=== PATIENT | male | born 1960 | race Caucasian/White ===

== ENCOUNTER 2018-06-25 06:49 | Inpatient (IN) | payer OTHER ==
[2018-06-25] MEDS ORDERED: CIPROFLOXACIN 400mg IV 400 MG/200 ML BAG IV ONE (07:47)
[2018-06-25] MEDS ORDERED: FAMOTIDINE 20 MG/2 ML VIAL IV ONE (07:47)
[2018-06-25] MEDS ORDERED: MORPHINE 4 MG/ML SYR ONE ×2 (07:47→08:51)
[2018-06-25] MEDS ORDERED: ONDANSETRON 4 MG/2 ML VIAL ONE ×2 (07:47→10:46)
[2018-06-25] MEDS ORDERED: METRONIDAZOLE 500mg IVPB 500 MG/100 ML BAG IV ONE (07:48)
[2018-06-25] MEDS ORDERED: NA CHLORIDE 0.9% 1,000 ML ONE ×2 (07:48→11:58)
[2018-06-25 07:53] LABS: Absolute Lymphocytes (CBC) 0.9 K/uL (0.7-4.9); Absolute Monocytes 2.4 K/uL (0.1-1.3); Absolute Neutrophil 20.4 K/uL (1.8-8.0); Basophils % 0.2 % (0-1.3); Eosinophils % 0.1 % (0-4.4); Hematocrit 46.2 % (39.6-49.0); Lymphocytes % 3.9 % (15.3-44.8); MCH 25.4 pg (27.0-35.0); MCV 80.9 fL (80-100); MPV 8.3 fL (7.6-11.3); Monocytes % 10.1 % (3.3-12.3); RBC Red Blood Cell Count 5.71 M/uL (4.33-5.43)
[2018-06-25 07:55] LABS: Protime INR 1.2
[2018-06-25 08:09] LABS: Albumin 3.3 g/dL (3.4-5.0); Bilirubin Direct 0.2 mg/dL (0-0.2); Bilirubin Total 0.5 mg/dL (0.2-1.0); Potassium 3.6 mmol/L (3.5-5.1); Protein, Total 8.3 g/dL (6.4-8.2)
[2018-06-25 08:12] LABS: Magnesium 1.9 mg/dL (1.8-2.4); NT PRO-BNP 39 pg/mL (<125); Troponin (Emerg Dept Use Only) < 0.02 ng/mL (0.0-0.045)
[2018-06-25 08:25] LABS: Blood Morphology Comment NOT SEEN (NOT SEEN); Platelet Estimate ADEQ
--- NOTE | 2018-06-25 08:30 | EKG ---
Test Date: 2018-06-25 Test Time: 07:39:38 [employer]: JULIO MEASUREMENT RESULTS: Intervals: Rate: 123 MO: 152 QRSD: 86 QT: 336 QTc: 481 [place]: P: 60 MO: 152 QRS: -3 T: 72 INTERPRETIVE STATEMENTS: Sinus tachycardia Otherwise normal ECG Compared to ECG 12/27/2016 05:36:02 Sinus rhythm no longer present Prolonged QT interval no longer present Electronically Signed On 06-25-18 08:30:06 RETORT PRE COOKER by Darek Ornelas
--- NOTE | 2018-06-25 08:48 | RAD REPORT ---
EXAM DESCRIPTION: RAD - Chest Single View - 06/25/2018 7:59 am CLINICAL HISTORY: ABDOMINAL DISTENTION Chest pain. COMPARISON: Chest Single View dated 12/27/2016 FINDINGS: Portable technique limits examination quality. The lungs are emphysematous but grossly clear. The heart is normal in size. No displaced fractures. IMPRESSION: No acute intrathoracic process suspected.
--- NOTE | 2018-06-25 10:16 | EDPHYS ---
Physician Documentation [facility] Name: Danyel Yu Age: 57 yrs Sex: Male : 1960 Arrival Date: 06/25/2018 Time: 06:53 Bed 20 Private MD: ED Physician Yonny Martin HPI: 06/25 07:35 This 57 yrs old Male presents to ER via Ambulatory with complaints of hannah Abdominal Pain, Constipation. 07:35 The patient presents with abdominal pain. Onset: The symptoms/episode began/occurred 14 hannah day(s) ago. The symptoms do not radiate. Associated signs and symptoms: none. Modifying factors: The symptoms are alleviated by nothing, the symptoms are aggravated by movement, pressure. Severity of pain: At its worst the pain was moderate in the emergency department the pain is unchanged. The patient has not experienced similar symptoms in the past. Historical: - Allergies: 07:18 No Known Allergies; sv - Home Meds: 07:18 Ibuprofen Oral [Active]; sv - PMHx: 07:18 Hypertension; sv - PSHx: 07:18 Hernia repair; sv - Immunization history:: Flu vaccine is not up to date. - Social history:: Smoking status: Patient uses tobacco products, smokes .75 packs per day, chewing tobacco, Patient uses alcohol, occasionally. - Ebola Screening: : No symptoms or risks identified at this time. - Family history:: not pertinent. ROS: 07:37 Constitutional: Negative for fever, chills, and weight loss, Eyes: Negative for injury, hannah pain, redness, and discharge, ENT: Negative for injury, pain, and discharge, Neck: Negative for injury, pain, and swelling, Cardiovascular: Negative for chest pain, palpitations, and edema, Respiratory: Negative for shortness of breath, cough, wheezing, and pleuritic chest pain, Back: Negative for injury and pain, : Negative for injury, bleeding, discharge, and swelling, MS/Extremity: Negative for injury and deformity, Skin: Negative for injury, rash, and discoloration, Neuro: Negative for headache, weakness, numbness, tingling, and seizure, Psych: Negative for depression, anxiety, suicide ideation, homicidal ideation, and hallucinations, Allergy/Immunology: Negative for hives, rash, and allergies, Endocrine: Negative for neck swelling, polydipsia, polyuria, polyphagia, and marked weight changes, Hematologic/Lymphatic: Negative for swollen nodes, abnormal bleeding, and unusual bruising. 07:37 Abdomen/GI: Positive for abdominal pain, of the right upper quadrant, left upper quadrant, right lower quadrant and left lower quadrant. Exam: 07:37 Constitutional: This is a well developed, well nourished patient who is awake, alert, hannah and in no acute distress. Head/Face: Normocephalic, atraumatic. Eyes: Pupils equal round and reactive to light, extra-ocular motions intact. Lids and lashes normal. Conjunctiva and sclera are non-icteric and not injected. Cornea within normal limits. Periorbital areas with no swelling, redness, or edema. ENT: Nares patent. No nasal discharge, no septal abnormalities noted. Tympanic membranes are normal and external auditory canals are clear. Oropharynx with no redness, swelling, or masses, exudates, or evidence of obstruction, uvula midline. Mucous membranes moist. Neck: Trachea midline, no thyromegaly or masses palpated, and no cervical lymphadenopathy. Supple, full range of motion without nuchal rigidity, or vertebral point tenderness. No Meningismus. Chest/axilla: Normal chest wall appearance and motion. Nontender with no deformity. No lesions are appreciated. Cardiovascular: Regular rate and rhythm with a normal S1 and S2. No gallops, murmurs, or rubs. Normal PMI, no JVD. No pulse deficits. Respiratory: Lungs have equal breath sounds bilaterally, clear to auscultation and percussion. No rales, rhonchi or wheezes noted. No increased work of breathing, no retractions or nasal flaring. Back: No spinal tenderness. No costovertebral tenderness. Full range of motion. Male : Normal genitalia with no discharge or lesions. Skin: Warm, dry with normal turgor. Normal color with no rashes, no lesions, and no evidence of cellulitis. MS/ Extremity: Pulses equal, no cyanosis. Neurovascular intact. Full, normal range of motion. Neuro: Awake and alert, GCS 15, oriented to person, place, time, and situation. Cranial nerves II-XII grossly intact. Motor strength 5/5 in all extremities. Sensory grossly intact. Cerebellar exam normal. Normal gait. Psych: Awake, alert, with orientation to person, place and time. Behavior, mood, and affect are within normal limits. 07:37 Abdomen/GI: Inspection: abdomen appears normal, Bowel sounds: normal, Palpation: mild abdominal tenderness, moderate abdominal tenderness, Liver: no appreciated palpable abnormalities, Hernia: not appreciated. Vital Signs: 07:18 BP 177 / 100; Pulse 121; Resp 18; Temp 98.5; Weight 108.86 kg; Height 6 ft. 0 in. sv (182.88 cm); Pain 9/10; 07:51 Pulse Ox 86% on R/A; aa5 07:53 Pulse Ox 92% on 2 lpm NC; aa5 08:40 BP 169 / 81; Pulse 112; Resp 22 S; Pulse Ox 95% on 2 lpm NC; Pain 9/10; aa5 09:28 BP 188 / 99; Pulse 115; Resp 24 S; Temp 98.8(O); Pulse Ox 91% on 2 lpm NC; Pain 5/10; aa5 07:18 Body Mass Index 32.55 (108.86 kg, 182.88 cm) sv MDM: 07:12 Patient medically screened. [facility] 07:38 Data reviewed: vital signs, nurses notes, lab test result(s), EKG, radiologic studies, [facility] CT scan, plain films. 06/25 07:21 Order name: Basic Metabolic Panel; Complete Time: 09:03 [facility] 06/25 07:21 Order name: CBC with Diff; Complete Time: 09:03 [facility] 06/25 07:21 Order name: Creatinine for Radiology; Complete Time: 09:03 [facility] 06/25 07:21 Order name: Hepatic Function; Complete Time: 09:03 [facility] 06/25 07:21 Order name: Lipase; Complete Time: 09:03 [facility] 06/25 07:21 Order name: Type And Screen; Complete Time: 09:03 [facility] 06/25 07:35 Order name: Magnesium; Complete Time: 09:03 [facility] 06/25 07:35 Order name: NT PRO-BNP; Complete Time: 09:03 [facility] 06/25 07:35 Order name: PT-INR; Complete Time: 09:03 [facility] 06/25 07:35 Order name: Troponin (emerg Dept Use Only); Complete Time: 09:03 [facility] 06/25 07:35 Order name: XRAY Chest (1 view); Complete Time: 09:03 [facility] 06/25 07:35 Order name: CT Abd/Pelvis - W/Contrast [facility] 06/25 08:00 Order name: Manual Differential; Complete Time: 09:03 [facility] 06/25 07:21 Order name: IV Saline Lock; Complete Time: 07:36 [facility] 06/25 07:21 Order name: Labs collected and sent; Complete Time: 07:36 [facility] 06/25 07:35 Order name: EKG; Complete Time: 07:35 [facility] 06/25 07:35 Order name: Cardiac monitoring; Complete Time: 07:36 [facility] 06/25 07:35 Order name: EKG - Nurse/Tech; Complete Time: 07:53 [facility] 06/25 07:35 Order name: O2 Per Protocol; Complete Time: 07:36 [facility] 06/25 07:35 Order name: O2 Sat Monitoring; Complete Time: 07:36 [facility] 06/25 10:25 Order name: CONS Physician Consult EDSD Administered Medications: 07:45 Drug: NS 0.9% 1000 ml Route: IV; Rate: 1 bolus; Site: right antecubital; aa5 08:52 Follow up: IV Status: Completed infusion aa5 07:45 Drug: Zofran 4 mg Route: IVP; Site: right antecubital; aa5 07:55 Follow up: Response: No adverse reaction aa5 07:45 Drug: Pepcid 20 mg Route: IVP; Site: right antecubital; aa5 07:55 Follow up: Response: No adverse reaction aa5 07:47 Drug: morphine 4 mg Route: IVP; Site: right antecubital; aa5 07:55 Follow up: Response: No adverse reaction aa5 07:50 Drug: Flagyl 500 mg Volume: 100 ml; Route: IVPB; Rate: 200 ml/hr; Infused Over: 30 aa5 mins; Site: right antecubital; 08:00 Follow up: Response: No adverse reaction aa5 08:20 Follow up: IV Status: Completed infusion aa5 08:50 Drug: Cipro 400 mg Volume: 200 ml; Route: IVPB; Infused Over: 60 mins; Site: right aa5 antecubital; 09:00 Follow up: Response: No adverse reaction aa5 10:00 Follow up: Response: No adverse reaction; IV Status: Completed infusion aa5 08:52 Drug: morphine 4 mg Route: IVP; Site: right antecubital; aa5 09:00 Follow up: Response: No adverse reaction aa5 10:38 Drug: ProTONIX 40 mg Route: IVP; Site: right antecubital; aa5 10:43 Follow up: Response: No adverse reaction aa5 10:40 Drug: InvANZ 1 grams Route: IVPB; Infused Over: 30 mins; Site: right antecubital; aa5 10:43 Follow up: IV Status: Infusion continued upon admission aa5 Disposition: 06/25/18 10:15 Hospitalization ordered by Debra Eaton for Inpatient Admission. Preliminary diagnosis are Acute duodenal ulcer with both hemorrhage and perforation, Acute duodenal ulcer with perforation, Elevated white blood cell count, Essential (primary) hypertension. - Bed requested for Intensive Care Unit. - Status is Inpatient Admission. aa5 - Condition is Serious. - Problem is new. - Symptoms have improved. UTI on Admission? No Signatures: Dispatcher [employer] Gregoria Squires RN RN sv Anderson, Corey, MD MD cha Calderon, Audri, RN RN aa5 Corrections: (The following items were deleted from the chart) 10:26 10:15 Hospitalization Ordered by Per Ceballos MD for Inpatient Admission. Preliminary hannah diagnosis is Acute duodenal ulcer with both hemorrhage and perforation; Acute duodenal ulcer with perforation; Elevated white blood cell count; Essential (primary) hypertension. Bed requested for Intensive Care Unit. Status is Inpatient Admission. Condition is Serious. Problem is new. Symptoms have improved. UTI on Admission? No. hannah 10:44 10:26 06/25/2018 10:15 Hospitalization Ordered by Debra Eaton MD for Inpatient aa5 Admission. Preliminary diagnosis is Acute duodenal ulcer with both hemorrhage and perforation; Acute duodenal ulcer with perforation; Elevated white blood cell count; Essential (primary) hypertension. Bed requested for Intensive Care Unit. Status is Inpatient Admission. Condition is Serious. Problem is new. Symptoms have improved. UTI on Admission? No. hannah
--- NOTE | 2018-06-25 10:16 | ER ---
Nurse's Notes [facility] Name: Danyel Yu Age: 57 yrs Sex: Male : 1960 Arrival Date: 06/25/2018 Time: 06:53 Bed 20 Private MD: Diagnosis: Acute duodenal ulcer with both hemorrhage and perforation;Acute duodenal ulcer with perforation;Elevated white blood cell count;Essential (primary) hypertension Presentation: 06/25 06:58 Presenting complaint: Patient states: generalized abd pain started today, black tarry sv stools, and constipation for a few weeks. Denies n/v. Pt reports taking Ibuprofen daily for a LLE wound. Transition of care: patient was not received from another setting of care. Onset of symptoms is unknown. Risk Assessment: Do you want to hurt yourself or someone else? Patient reports no desire to harm self or others. Care prior to arrival: None. 06:58 Method Of Arrival: Ambulatory sv 06:58 Acuity: RIVERA 3 sv 07:25 Initial Sepsis Screen: Does the patient meet any 2 criteria? HR > 90 bpm. Does the aa5 patient have a suspected source of infection? No. Patient's initial sepsis screen is negative. Triage Assessment: 06:58 General: Appears in no apparent distress. uncomfortable, Behavior is calm, cooperative, sv appropriate for age. Pain: Complains of pain in abdomen Pain currently is 9 out of 10 on a pain scale. EENT: No signs and/or symptoms were reported regarding the EENT system. Neuro: Level of Consciousness is awake, alert, obeys commands, Oriented to person, place, time, situation, Moves all extremities. Full function Gait is steady. Respiratory: Respiratory effort is even, unlabored, Respiratory pattern is regular, symmetrical. GI: Reports lower abdominal pain, upper abdominal pain, constipation. Historical: - Allergies: 07:18 No Known Allergies; sv - Home Meds: 07:18 Ibuprofen Oral [Active]; sv - PMHx: 07:18 Hypertension; sv - PSHx: 07:18 Hernia repair; sv - Immunization history:: Flu vaccine is not up to date. - Social history:: Smoking status: Patient uses tobacco products, smokes .75 packs per day, chewing tobacco, Patient uses alcohol, occasionally. - Ebola Screening: : No symptoms or risks identified at this time. - Family history:: not pertinent. Screenin:25 Abuse screen: Denies threats or abuse. Nutritional screening: No deficits noted. aa5 Tuberculosis screening: No symptoms or risk factors identified. Fall Risk None identified. Assessment: 07:22 General: Appears uncomfortable, Behavior is calm, cooperative, Pt states "I have a aa5 wound on my leg that I've been dealing with for a year", pt currently refusing for me to assess the wound, pt states "I need to get the stomach pains taking care of first". . Pain: Complains of pain in right upper quadrant Pain does not radiate. Pain currently is 9 out of 10 on a pain scale. Quality of pain is described as crampy, sharp, Pain began "last night" Is intermittent. Neuro: Level of Consciousness is awake, alert, obeys commands, Oriented to person, place, time, situation. Cardiovascular: Heart tones S1 S2 present Rhythm is regular. Respiratory: Reports chronic cough Airway is patent Respiratory effort is even, unlabored, Respiratory pattern is regular, symmetrical. GI: Abdomen is round Bowel sounds diminished in right upper quadrant, left upper quadrant, right lower quadrant and left lower quadrant Abdomen is tender to palpation in right upper quadrant Reports constipation, Pt reports last normal BM was approximately 2 weeks ago. Pt states "I've been having a lot of BM's but it's foam and dark stuff coming out, it's not black just dark". Patient currently denies nausea, vomiting. : No signs and/or symptoms were reported regarding the genitourinary system. EENT: No signs and/or symptoms were reported regarding the EENT system. Derm: Skin is pink, warm \\T\\ dry. Musculoskeletal: Range of motion: intact in all extremities. 07:51 Reassessment: started drinking contrast;. hj 07:51 Reassessment: Patient is alert, oriented x 3, equal unlabored respirations, skin aa5 warm/dry/pink. Pt sitting up in bed watching TV. Pt's O2 was noted to be 85% RA, O2 administered via NC now and O2 increased to 92%. Pt notified of wait time for lab results, pt drinking CT oral contrast at this time. . 08:50 Reassessment: Patient and/or family updated on plan of care and expected duration. Pain aa5 level reassessed. Patient is alert, oriented x 3, equal unlabored respirations, skin warm/dry/pink. Patient states symptoms have not improved. Dr. Martin notified of pt's pain level. Pain: Pain currently is 9 out of 10 on a pain scale. 09:29 Reassessment: Pt resting in bed with eyes closed. Pt awakens easily to verbal stimuli. aa5 Pt states feeling better, reports pain is currently 5/10 on a pain scale, pt states "it just hurts bad when I cough". Pt A\\T\\O x 4, even unlabored respirations, skin is pink/warm/dry. Pt's family at bedside. Awaiting CT scan . 10:20 Reassessment: Patient is alert, oriented x 3, equal unlabored respirations, skin aa5 warm/dry/pink. Dr. Martin at bedside speaking to patient about need for surgery. . Vital Signs: 07:18 BP 177 / 100; Pulse 121; Resp 18; Temp 98.5; Weight 108.86 kg; Height 6 ft. 0 in. sv (182.88 cm); Pain 9/10; 07:51 Pulse Ox 86% on R/A; aa5 07:53 Pulse Ox 92% on 2 lpm NC; aa5 08:40 BP 169 / 81; Pulse 112; Resp 22 S; Pulse Ox 95% on 2 lpm NC; Pain 9/10; aa5 09:28 BP 188 / 99; Pulse 115; Resp 24 S; Temp 98.8(O); Pulse Ox 91% on 2 lpm NC; Pain 5/10; aa5 07:18 Body Mass Index 32.55 (108.86 kg, 182.88 cm) sv ED Course: 06:53 Patient arrived in ED. es 06:58 Arm band placed on Patient placed in an exam room, on a stretcher. sv 07:00 Courtney Manrique, RN is Primary Nurse. aa5 07:12 Yonny Martin MD is Attending Physician. hannah 07:17 Triage completed. sv 07:39 Initial lab(s) drawn, by me, sent to lab. T\\T\\S collected, blood band applied to patient. mh5 Inserted saline lock: 20 gauge in right antecubital area, using aseptic technique. Blood collected. 07:40 Patient has correct armband on for positive identification. Placed in gown. Bed in low mh5 position. Call light in reach. Side rails up X 1. Warm blanket given. Pillow given. Pulse ox on. NIBP on. 07:57 Notified ED physician of a critical lab result(s). WBC=23.9. iw 07:59 X-ray completed. Portable x-ray completed in exam room. Patient tolerated procedure jb2 well. 08:00 XRAY Chest (1 view) In Process Unspecified. EDMS 10:07 CT Abd/Pelvis - W/Contrast In Process Unspecified. EDMS 10:13 Per Ceballos MD is Hospitalizing Provider. hannah 10:20 No provider procedures requiring assistance completed. aa5 10:20 Patient admitted, IV remains in place. aa5 10:25 Debra Eaton MD is Hospitalizing Provider. hannah Administered Medications: 07:45 Drug: NS 0.9% 1000 ml Route: IV; Rate: 1 bolus; Site: right antecubital; aa5 08:52 Follow up: IV Status: Completed infusion aa5 07:45 Drug: Zofran 4 mg Route: IVP; Site: right antecubital; aa5 07:55 Follow up: Response: No adverse reaction aa5 07:45 Drug: Pepcid 20 mg Route: IVP; Site: right antecubital; aa5 07:55 Follow up: Response: No adverse reaction aa5 07:47 Drug: morphine 4 mg Route: IVP; Site: right antecubital; aa5 07:55 Follow up: Response: No adverse reaction aa5 07:50 Drug: Flagyl 500 mg Volume: 100 ml; Route: IVPB; Rate: 200 ml/hr; Infused Over: 30 aa5 mins; Site: right antecubital; 08:00 Follow up: Response: No adverse reaction aa5 08:20 Follow up: IV Status: Completed infusion aa5 08:50 Drug: Cipro 400 mg Volume: 200 ml; Route: IVPB; Infused Over: 60 mins; Site: right aa5 antecubital; 09:00 Follow up: Response: No adverse reaction aa5 10:00 Follow up: Response: No adverse reaction; IV Status: Completed infusion aa5 08:52 Drug: morphine 4 mg Route: IVP; Site: right antecubital; aa5 09:00 Follow up: Response: No adverse reaction aa5 10:38 Drug: ProTONIX 40 mg Route: IVP; Site: right antecubital; aa5 10:43 Follow up: Response: No adverse reaction aa5 10:40 Drug: InvANZ 1 grams Route: IVPB; Infused Over: 30 mins; Site: right antecubital; aa5 10:43 Follow up: IV Status: Infusion continued upon admission aa5 Outcome: 10:15 Decision to Hospitalize by Provider. [facility] 10:43 Admitted to OR accompanied by nurse, family with patient, via stretcher, with oxygen, aa5 with chart, Other Report given to VIDHI Pineda 10:43 Condition: stable 10:43 Discharge instructions given to patient, significant other, Instructed on the need for admit. 10:44 Patient left the ED. aa5 Signatures: Dispatcher [employer] Gregoria Squires RN RN sv Anderson, Corey, MD MD cha Salyer, Feliberto Lance jb2 Mariella Nicole RN RN iw Courtney Manrique RN RN aa5 Per Burnett RN RN hj Martinez, Maria [facility] Corrections: (The following items were deleted from the chart) 19:47 07:15 Initial Sepsis Screen: Does the patient meet any 2 criteria? HR > 90 bpm. Does aa5 the patient have a suspected source of infection? No. Patient's initial sepsis screen is negative. aa5
--- NOTE | 2018-06-25 10:17 | RAD REPORT ---
EXAM DESCRIPTION: CTAbdomen Pelvis W Contrast - 06/25/2018 10:06 am CLINICAL HISTORY: Abdominal pain. ABD PAIN COMPARISON: No comparisons TECHNIQUE: Biphasic CT imaging of the abdomen and pelvis was performed with 100 ml non-ionic IV cont rast. All CT scans are performed using dose optimization technique as appropriate and may include automated exposure control or mA/KV adjustment according to patient size. FINDINGS: The lung bases are clear. A crescent of high density fluid is seen along the liver edge measuring 2.5 cm likely related to bloo d. Small amount of free air is present within the peritoneal cavity. Oral contrast is seen leaking fr om the proximal duodenum to layer in the right upper quadrant adjacent to the gallbladder fossa. Ther e is irregular soft tissue thickening involving the proximal duodenum with surrounding inflammatory c hanges suspicious for perforated duodenal ulcer. The spleen, pancreas, adrenal glands and kidneys are within normal limits. A benign left renal cyst i s seen. A very large right inguinal hernia is present containing small bowel loops without evidence o f incarceration. The appendix is normal. No evidence of significant lymphadenopathy. No suspicious bony findings. IMPRESSION: Perforated duodenal ulcer is suspected with intraperitoneal contrast, air and blood pres ent. Findings were discussed with ER physician Dr. Martin 10 a.m. 06/25/2018 by telephone.
[2018-06-25] MEDS ORDERED: PANTOPRAZOLE 40 MG INJ ONE (10:38)
[2018-06-25] MEDS ORDERED: GLYCOPYRROLATE 0.2 MG/ML SYR ONE (10:44)
[2018-06-25] MEDS ORDERED: LIDOCAINE 2% MPF 5 ML VIAL ONE (10:44)
[2018-06-25] MEDS ORDERED: MIDAZOLAM HCL 2 MG/2 ML INJ ONE ×2 (10:44→13:33)
[2018-06-25] MEDS ORDERED: PROPOFOL 200 MG/20 ML VIAL IV ONE (10:44)
[2018-06-25] MEDS ORDERED: ERTAPENEM NA 1 GM in NA CHLORIDE 0.9% 100 ML IVPB ONE (10:45)
[2018-06-25] MEDS ORDERED: FENTANYL CITR 250 MCG/5 ML ONE ×2 (10:45→10:47)
[2018-06-25] MEDS ORDERED: ROCURONIUM 50 MG/5 ML VIAL IV ONE ×2 (10:46→12:56)
[2018-06-25] MEDS ORDERED: Ringers Lactate 1,000 ML IV ONE ×2 (11:02→13:17)
[2018-06-25] MEDS ORDERED: SUCCINYLCHOLINE 20 MG/ML (10 ML) IV ONE (11:21)
[2018-06-25] MEDS ORDERED: EPHEDRINE SULF 50 MG/10 ML SYR ONE (11:52)
--- NOTE | 2018-06-25 12:10 | CON ---
Date of Consultation: 06/25/2018 Diagnoses: Pneumoperitoneum, hemoperitoneum, peritonitis, perforated viscus. History Of Present Illness: This is the case of a 57-year-old patient, who comes to us with abdomina l pain that has been like that for about 3 weeks ago, but in the last 24 hours got worse. He decided to show up this morning to the ER. He does not remember eating anything out of the usual. He took ibuprofen for pain since the patient has a chronic left lower extremity open wound and venous stasis disease. He was advised in the past and had [facility], but he has not vasquez d a chance to go there. Apparently, this has been there for a few years. He denies drinking anythin g in the last 2 weeks. He said that he had beer about 2 weeks ago. He smoked just occasionally, not every day. He denies any dysuria, hematuria, hematochezia, or melena. Denies any recent traveling out of the country. Denies any family member sick at home. Review of Systems: Ten points otherwise unremarkable. Medical History: Hypertension. Past Surgical History: Ventral hernia repair in 2005. Medications: Ibuprofen. Social History: He smokes occasionally and drinks alcohol just occasionally. Last beer was 2 weeks ago as per patient. Physical Examination: General: The patient is awake and alert, complaining of abdominal pain. HEENT: Pupils are equal and reactive. Anicteric. Neck: Supple. Chest: Clear. Abdomen: Distended with peritonitis and generalized tenderness. Tympanic. Peritonitis guarding and rebound. Rectal: Deferred. Genitalia: Deferred. Extremities: Good capillary refill. Laboratory Data: Blood work shows a WBC count of 23.9 with hemoglobin of 14.5 and platelets of 310. INR is 1.2 with bicarb 30. Glucose 134. CAT scan of abdomen and pelvis interpreted by Dr. Vik swann also I called him and discussed the case with him. He stated that it is a perforated duodenal ulce r with intraperitoneal contrast, air, and blood. Assessment: This is a 57-year-old patient with perforated viscus, peritonitis, and abdominal pain. The patient displayed the need for emergent laparotomy, possible bowel resection, possible ostomy wit h benefits, alternatives, and risks, which include, but are not limited to infection, bleeding, damag e to adjacent structures as a complication, abscess, NV, and even . He also understands this ma y not relieve any symptoms. He might need more than one surgical intervention. He understands the l robert threatening situation he is on. He was advised to check with his primary doctor about the use of ibuprofen also discuss with the GI doctor, in the future when this emergency is over and if he survi ves this then go talk to the GI doctor for an upper endoscopy and even colonoscopy since he does not remember if he had 1 before or not. We are going to request an ICU bed in this patient for the next few days. He might have some third spacing in that area since it is hard to say when this perforatio n happened. He understands this condition. The OR was emergently called. RONDA Voice ID: [id number] Report ID: [id number]
[2018-06-25] MEDS ORDERED: ONDANSETRON 4 MG/2 ML VIAL IV PRN (12:21)
[2018-06-25] MEDS ORDERED: NA CHLORIDE 0.9% 1,000 ML IV SCH (12:21)
[2018-06-25] MEDS ORDERED: Phenylephrine HCl 10 MG/ML 1 ML VIAL ONE (12:33)
[2018-06-25] MEDS ORDERED: MORPHINE 4 MG/ML SYR IV PRN (14:08)
[2018-06-25] MEDS ORDERED: PROPOFOL 1,000 MG/100 ML VIAL IV PRN (14:17)
[2018-06-25] MEDS ORDERED: NA CHLORIDE 0.9% 250 ML IV PRN (14:17)
[2018-06-25] MEDS ORDERED: HALOPERIDOL LACT 5 MG/ML INJ IV PRN (14:17)
--- NOTE | 2018-06-25 14:20 | P.BOP ---
Preoperative diagnosis: PEritonitis, perforated duodenum, hemoperitoneum, pneumoperitoneum Postoperative diagnosis: same Primary procedure: 1. Emergent exploratory laparotomy Secondary procedure: 2. Closure of duodenal perforation Other procedure(s): 3. Omental patch Test Specialist: Lorraine Farr Estimated blood loss: <100cc Specimen: mass Findings: proximal superior duodenum with peritonitis Anesthesia: General Complications: None Drain(s): JUANI drain (x2) Transferred to: Recovery Room Condition: Serious
[2018-06-25] MEDS: NA CHLORIDE 0.9% 1,000 ML IV SCH ×3 (15:00→23:09)
[2018-06-25] MEDS: PROPOFOL 1,000 MG/100 ML VIAL IV PRN ×2 (15:03→22:57)
[2018-06-25] MEDS: PIPER/TAZO/NS 3.375gm 3.375 GM/100 ML BAG IVPB SCH (15:06)
[2018-06-25] MEDS: OCTREOTIDE 500 MCG in NA CHLORIDE 0.9% 500 ML IV SCH (15:06)
[2018-06-25] MEDS: PANTOPRAZOLE INJ 80 MG in NA CHLORIDE 0.9% 250 ML IV SCH (15:06)
--- NOTE | 2018-06-25 16:59 | RAD REPORT ---
EXAM DESCRIPTION: RAD - Chest Single View - 06/25/2018 4:47 pm CLINICAL HISTORY: confirm: PICC placement, ETT placement, NGT placem COMPARISON: Chest Single View dated 06/25/2018; Chest Single View dated 12/27/2016 FINDINGS: Portable chest was obtained following placement of a left upper extremity PICC line. The c atheter tip projects over the SVC.. Endotracheal tube tip is above the sherrill. NG tube tip is not included on the radiograph.
[2018-06-25 17:20] LABS: Urine Appearance CLEAR; Urine Blood NEGATIVE (NEG); Urine Color ORANGE; Urine Glucose NEGATIVE (NEG); Urine Protein 1+ (NEG); Urine Specific Gravity >=1.030 (1.005-1.030)
[2018-06-25] MEDS ORDERED: IPRATROPIUM BROM 0.5MG/2.5ML NEB PRN (17:49)
[2018-06-25] MEDS ORDERED: ALBUTEROL 2.5 MG/3 ML NEB SOL NEB PRN (17:49)
--- NOTE | 2018-06-25 17:55 | P.HP ---
Certification for Inpatient Patient admitted to: Inpatient With expected LOS: >2 Midnights Patient will require the following post-hospital care: None Practitioner: I am a practitioner with admitting privileges, knowledge of patient current condition, hospital course, and medical plan of care. Services: Services provided to patient in accordance with Admission requirements found in Title 42 Section 412.3 of the Code of Federal Regulations Patient History Date of Service: 06/25/18 Reason for admission: Duodenal Perforation History of Present Illness: This is the case of a 57-year-old patient with PMHS of HTN and COPD, who comes to us with abdominal pain that has been going on for 3 weeks, but in the last 24 hours has gotten progressively worse. Pain was excruciating in nature and Generalized in the abdominal Area. His Pain was worse with Food. He has not had anything to eat or drink today. He has been taking OTC ibuprofen for his chronic left lower extremity open wound and venous stasis disease. He has been taking more recently due to the pain. He denies drinking anything in the last 2 weeks. He said that he had beer about 2 weeks ago. He smoked just occasionally, not every day. He denies any dysuria, hematuria, hematochezia, or melena. Denies any recent traveling out of the country. Denies any family member sick at home. In the ER was found to have Duodenal Perforation and thus was admitted for further care Allergies No Known Allergies Allergy (Verified 12/27/16 07:46) Home Medications: Ibuprofen [Advil] 100 mg PO Q4H 06/25/18 - Past Medical/Surgical History Diabetic: No -: HTN -: COPD -: hernia repair - Social History Smoking Status: Current every day smoker Alcohol use: No CD- Drugs: No Caffeine use: No Place of Residence: Home Review of Systems 10-point ROS is otherwise unremarkable Physical Examination - Vital Signs Temperature: 98.6 F Blood Pressure: 103/73 Pulse: 92 Respirations: 12 Pulse Ox (%): 98 - Physical Exam General: Alert, In no apparent distress, Moderate distress HEENT: Atraumatic, PERRLA, EOMI Neck: Supple, 2+ carotid pulse no bruit, No LAD, Without JVD or thyroid abnormality Respiratory: Clear to auscultation bilaterally, Normal air movement Cardiovascular: Regular rate/rhythm, Normal S1 S2 Gastrointestinal: Normal bowel sounds, Tenderness, Rebound, Guarding Musculoskeletal: No tenderness Integumentary: No rashes Neurological: Normal speech, Normal strength at 5/5 x4 extr, Normal tone Lymphatics: No axilla or inguinal lymphadenopathy - Studies Laboratory Data (last 24 hrs) 06/25/18 07:30: PT 14.2 H, INR 1.20 06/25/18 07:30: Magnesium 1.9 06/25/18 07:30: Creatinine 0.90 06/25/18 07:30: WBC 23.9 H*, Hgb 14.5, Hct 46.2, Plt Count 310 06/25/18 07:30: Sodium 137, Potassium 3.6, BUN 22 H, Creatinine 0.90, Glucose 134 H, Total Bilirubin 0.5, AST 13 L, ALT 20, Alkaline Phosphatase 88, Lipase 58 L Assessment and Plan - Problems (Diagnosis) (1) Acute respiratory failure Current Visit: Yes Status: Acute Plan: Patient intubated for surgery -Remained intubated. -CPAP trial and extubate if tolerating CPAP Qualifiers: Respiratory failure complication: unspecified whether with hypoxia or hypercapnia Qualified Code(s): J96.00 - Acute respiratory failure, unspecified whether with hypoxia or hypercapnia (2) Duodenal ulcer disease Current Visit: Yes Status: Acute Plan: Duodenal Ulcer Perforation with Peritonitis -Patient has been taking Ibuprofen recently at a higher dose. -IV fluids and IV protonix and Octerotide -IV abx for acute perforation -Gen Surgery to take the patient to OR -F.u post surgery -NPO for now (3) Peritonitis Current Visit: Yes Status: Acute Plan: Peritonitis -IV abx for now -See # 1 (4) HTN (hypertension) Current Visit: Yes Status: Chronic Plan: Restart Home medication -NPO for now And thus IV medication PRN Qualifiers: Hypertension type: essential hypertension Qualified Code(s): I10 - Essential (primary) hypertension (5) COPD (chronic obstructive pulmonary disease) Current Visit: Yes Status: Chronic Plan: COPD -Duonebs Qualifiers: COPD type: chronic bronchitis Chronic bronchitis type: simple Qualified Code(s): J41.0 - Simple chronic bronchitis Discharge Plan: Home Plan to discharge in: Greater than 2 days - Advance Directives Does patient have a Living Will: No Does patient have a Durable POA for Healthcare: No - Code Status/Comfort Care Code Status Assessed: Yes Critical Care: Yes
[2018-06-25 18:02] LABS: Urine RBC <5 /HPF (NONE SEEN)
[2018-06-25 18:03] LABS: Urine Bacteria 20-50 /HPF (NONE SEEN); Urine Bilirubin NEGATIVE (NEG); Urine Culture Reflex Order REFLEXED
[2018-06-25 18:04] LABS: Urine Amorphous Sediment 1+ /HPF (NONE SEEN)
[2018-06-25] MEDS ORDERED: FAMOTIDINE 20 MG/2 ML VIAL IV SCH (21:00)
[2018-06-26] MEDS: PANTOPRAZOLE INJ 80 MG in NA CHLORIDE 0.9% 250 ML IV SCH ×2 (00:12→11:09)
[2018-06-26] MEDS: PIPER/TAZO/NS 3.375gm 3.375 GM/100 ML BAG IVPB SCH ×3 (00:15→17:45)
[2018-06-26] MEDS: OCTREOTIDE 500 MCG in NA CHLORIDE 0.9% 500 ML IV SCH ×4 (01:40→11:10)
[2018-06-26] MEDS: PROPOFOL 1,000 MG/100 ML VIAL IV PRN ×4 (02:20→23:37)
[2018-06-26] MEDS: NA CHLORIDE 0.9% 1,000 ML IV SCH ×3 (04:20→17:00)
[2018-06-26 05:08] LABS: Absolute Monocytes 2.3 K/uL (0.1-1.3); Absolute Neutrophil 14.3 K/uL (1.8-8.0); Basophils % 0.2 % (0-1.3); Eosinophils % 0.1 % (0-4.4); Hematocrit 37.4 % (39.6-49.0); Lymphocytes % 5.6 % (15.3-44.8); MCH 25.5 pg (27.0-35.0); MCV 80.4 fL (80-100); MPV 8.6 fL (7.6-11.3); Monocytes % 13.2 % (3.3-12.3); RBC Red Blood Cell Count 4.65 M/uL (4.33-5.43)
[2018-06-26 05:12] LABS: Protime INR 1.53
[2018-06-26 05:22] LABS: Albumin 2.1 g/dL (3.4-5.0); Bilirubin Total 0.5 mg/dL (0.2-1.0); Magnesium 1.8 mg/dL (1.8-2.4); Phosphorus 4.5 mg/dL (2.5-4.9); Potassium 4.4 mmol/L (3.5-5.1); Protein, Total 5.8 g/dL (6.4-8.2)
[2018-06-26 05:35] LABS: Arterial Blood Carboxyhemoglob 2.1 % (0-1.5); Blood Gas Oxyhemoglobin 94.2 % (94-97); Blood O2 Saturation 97.3 % (92-98.5)
--- NOTE | 2018-06-26 06:24 | P.PN ---
Subjective Date of Service: 06/25/18 Patient doing well oral. Resting comfortably. Spoke to nurse & no new issues. No significant drainage from NG tube. Adequate urine output. Hemodynamically stable. Patient comfortable and resting. Continue current vent settings as he is on assist-control at this time. Labs pending for in the morning. Review of Systems is unable to be obtained (Patient is sedated and intubated) Physical Examination - Vital Signs Temperature: 98.6 F Blood Pressure: 102/63 Pulse: 87 Respirations: 12 Pulse Ox (%): 98 - Physical Exam General: Other (Sedated and intubated) Respiratory: Diminished Cardiovascular: Regular rate/rhythm, Normal S1 S2, No murmurs Gastrointestinal: Other (No abnormal findings on visualization) Musculoskeletal: No clubbing, No swelling Neurological: Other (Sedated and did not attempt to examine) - Studies Laboratory Data (last 24 hrs) 06/25/18 07:30: PT 14.2 H, INR 1.20 06/25/18 07:30: Magnesium 1.9 06/25/18 07:30: Creatinine 0.90 06/25/18 07:30: WBC 23.9 H*, Hgb 14.5, Hct 46.2, Plt Count 310 06/25/18 07:30: Sodium 137, Potassium 3.6, BUN 22 H, Creatinine 0.90, Glucose 134 H, Total Bilirubin 0.5, AST 13 L, ALT 20, Alkaline Phosphatase 88, Lipase 58 L Assessment & Plan - Problems (Diagnosis) (1) Acute respiratory failure Current Visit: Yes Status: Acute Qualifiers: Respiratory failure complication: unspecified whether with hypoxia or hypercapnia Qualified Code(s): J96.00 - Acute respiratory failure, unspecified whether with hypoxia or hypercapnia (2) Duodenal ulcer disease Current Visit: Yes Status: Acute (3) Peritonitis Current Visit: Yes Status: Acute (4) COPD (chronic obstructive pulmonary disease) Current Visit: Yes Status: Chronic Qualifiers: COPD type: chronic bronchitis Chronic bronchitis type: simple Qualified Code(s): J41.0 - Simple chronic bronchitis (5) HTN (hypertension) Current Visit: Yes Status: Chronic Qualifiers: Hypertension type: essential hypertension Qualified Code(s): I10 - Essential (primary) hypertension - Plan Plan: 1. Continue with IV hydration and PPI drip 2. Continue with IV antibiotics and Sandostatin drip; 3. Continue with pain control and sedation 4. NPO 5. Continue current vent settings; assist controlled as we allow patient 2 rest. Monitor chest x-ray for infiltrates 6. Serial H&H, and we will monitor LFTs and lipase along with electrolytes. 7. GI and DVT prophylaxis - Advance Directives Does patient have a Living Will: No Does patient have a Durable POA for Healthcare: No Critical Care: Yes Time Spent Managing PTS Care (In Minutes): 30
[2018-06-26] MEDS ORDERED: MAGNESIUM SULFATE 1 gm IVPB 1 GM/100 ML BAG IV ONE (06:40)
[2018-06-26] MEDS: LORazepam 2 MG/ML VIAL IV PRN ×2 (07:21→17:15)
--- NOTE | 2018-06-26 09:05 | RAD REPORT ---
EXAM DESCRIPTION: RAD - Chest Single View - 06/26/2018 6:27 am CLINICAL HISTORY: intubated Chest pain. COMPARISON: Chest Single View dated 06/25/2018; Chest Single View dated 06/25/2018; Chest Single Vie w dated 12/27/2016 FINDINGS: Portable technique limits examination quality. Tip of the ET tube is above the sherrill. Enteric tube descends into the stomach. The lungs are grossly clear. The heart is mildly to moderately enlarged.
--- NOTE | 2018-06-26 09:36 | EKG ---
Test Date: 2018-06-26 Test Time: 08:46:29 Journeyman Plumber: JULIO MEASUREMENT RESULTS: Intervals: Rate: 89 UT: 170 QRSD: 92 QT: 378 QTc: 459 [place]: P: 3 UT: 170 QRS: 27 T: 54 INTERPRETIVE STATEMENTS: Normal sinus rhythm Normal ECG Compared to ECG 06/25/2018 07:39:38 Sinus tachycardia no longer present Electronically Signed On 06-26-18 09:35:13 MANAGER COSMETICS by Juan Luis Levin
[2018-06-26] MEDS: AA 5%/D20W/ELECTROLYTES-TPN 2,000 ML, Lipids 20% 250 ML with MULTIVITAMINS INJ 10 ML IV SCH ×3 (17:14)
--- NOTE | 2018-06-26 17:23 | P.PN ---
Subjective Date of Service: 06/26/18 Chief Complaint: Duodenal Perforation Patient seen and examined at bedside with RN. Chart reviewed. Case discussed with general surgery at this time. Patient continues to be intubated and sedated. No complaints to offer overnight. s/pt perforated duodenal repair. Tolerated the procedure well. Review of Systems 10-point ROS is otherwise unremarkable Physical Examination - Vital Signs Temperature: 98.6 F Blood Pressure: 109/64 Pulse: 89 Respirations: 14 Pulse Ox (%): 98 - Physical Exam General: Other (Intubated and sedated) HEENT: Atraumatic, PERRLA, EOMI Neck: Supple, JVD not distended Respiratory: Normal air movement, Expiratory wheezes, Inspiratory wheezes Cardiovascular: Regular rate/rhythm, Normal S1 S2 Gastrointestinal: Normal bowel sounds, Hypoactive, Other (JUANI drain in place draining serosanguineous fluid), Tenderness Musculoskeletal: No tenderness Integumentary: No rashes Lymphatics: No axilla or inguinal lymphadenopathy - Studies Medications List Reviewed: Yes Assessment And Plan - Current Problems (Diagnosis) (1) Acute respiratory failure Onset Date: 06/26/18 Current Visit: Yes Status: Acute Plan: Patient intubated for surgery -Remained intubated and sedated at this time -given the extent of the duodenal ulcer perforation patient is to remain intubated for next 24-48 hr and will wean as tolerated to CPAP when patient is clinically ready Qualifiers: Respiratory failure complication: unspecified whether with hypoxia or hypercapnia Qualified Code(s): J96.00 - Acute respiratory failure, unspecified whether with hypoxia or hypercapnia (2) Duodenal ulcer disease Onset Date: 06/26/18 Current Visit: Yes Status: Acute Plan: Duodenal Ulcer Perforation with Peritonitis -Patient has been taking Ibuprofen recently at a higher dose. -IV fluids and IV protonix and Octerotide -IV abx for acute perforation -Gen Surgery consulted. Recommendation appreciated -s/p Repair with POD# 1 -NG tube in place and JUANI drain in place (3) Peritonitis Onset Date: 06/26/18 Current Visit: Yes Status: Acute Plan: Peritonitis -IV abx for now -See # 1 (4) HTN (hypertension) Onset Date: 06/26/18 Current Visit: Yes Status: Chronic Plan: Restart Home medication -NPO for now And thus IV medication PRN Qualifiers: Hypertension type: essential hypertension Qualified Code(s): I10 - Essential (primary) hypertension (5) COPD (chronic obstructive pulmonary disease) Onset Date: 06/26/18 Current Visit: Yes Status: Chronic Plan: COPD -Shirley Qualifiers: COPD type: chronic bronchitis Chronic bronchitis type: simple Qualified Code(s): J41.0 - Simple chronic bronchitis - Plan Awaiting clinical improvement at this time. Continue monitor patient closely. Continue to monitor for signs of worsening of peritonitis or complication from the surgery. Doing well overall right now. Intubated and sedated. Discharge Plan: Other Plan to discharge in: Greater than 2 days - Code Status/Comfort Care Code Status Assessed: Yes Critical Care: Yes
--- NOTE | 2018-06-26 17:33 | PN ---
Diagnoses: Peritonitis. Perforated duodenal ulcer status post closure of duodenal ulcer and omental patch. Review of Systems: Unable to obtain. Physical Examination: General: The patient is intubated, sedated. Chest: Bilateral breath sounds. Abdomen: Softly distended. JUANI drain serosanguineous. No gross blood. No gross pus. No gross bile . Bowel sounds are negative. Extremities: Good capillary refill. Laboratory Data: Blood work shows WBC count coming down from 23 to 17 with hemoglobin of 11.8. INR is 1.53. Creatinine is 0.9, glucose 131. Total bilirubin 0.5. Assessment: This is a 57-year-old patient with perforation and severe peritonitis over the abdomen w ith extensive contamination of the abdominal cavity by the GI contents from the perforation. We took him to surgery, did complete a lavage for that area, closed the duodenal ulcer and put a patc h in that area. Put him on PPI and bowel rest. He was combative at the beginning so we prefer to ke ep him for his own safety on the ventilator at least 1 more day that will secure that he does not rem ove that NG tube out and also the JUANI drains out since these are very important for the outcome of his problem. I discussed yesterday after surgery the case with Dr. Juvenal Minaya, 1 of the surgeons in [place], explained to him the situation that we have, if we see that in that area duodenal ulcer reo pens or leak then he stated that he will accept this patient for further intervention. In the meanti me, we are just to keep come him over here only if we see those changes in the future. Family is ful ly aware of that. We going to keep him n.p.o., and we plan to keep it like that for several more day s. For that reason, we put in a PICC line and start with parenteral nutrition. We will continue on the antibiotics. His abdomen is very contaminated. HM/MODL Voice ID: [id number] Report ID: [id number]
[2018-06-26] MEDS: PANTOPRAZOLE IV SCH (21:57)
[2018-06-26] MEDS: NA CHLORIDE 0.9% IV SCH ×2 (21:57→23:36)
[2018-06-26] MEDS: FENTANYL CITR 100 MCG/2 ML IV PRN (22:08)
[2018-06-26] MEDS: OCTREOTIDE IV SCH (23:36)
[2018-06-27] MEDS: PIPER/TAZO/NS 3.375gm 3.375 GM/100 ML BAG IVPB SCH ×3 (01:20→17:12)
[2018-06-27] MEDS: LORazepam 2 MG/ML VIAL IV PRN (01:20)
[2018-06-27] MEDS: NA CHLORIDE 0.9% IV SCH ×5 (02:39→20:35)
[2018-06-27] MEDS: PANTOPRAZOLE IV SCH ×3 (02:39→20:35)
[2018-06-27 05:05] LABS: Absolute Lymphocytes (CBC) 0.9 K/uL (0.7-4.9); Absolute Neutrophil 9.6 K/uL (1.8-8.0); Basophils % 0.8 % (0-1.3); Eosinophils % 0.9 % (0-4.4); Hematocrit 33.8 % (39.6-49.0); Lymphocytes % 7.4 % (15.3-44.8); MCH 25.6 pg (27.0-35.0); MCV 81.5 fL (80-100); MPV 8.4 fL (7.6-11.3); Monocytes % 15.7 % (3.3-12.3); RBC Red Blood Cell Count 4.15 M/uL (4.33-5.43)
[2018-06-27 05:11] LABS: Protime INR 1.21
[2018-06-27] MEDS: PROPOFOL 1,000 MG/100 ML VIAL IV PRN (05:12)
[2018-06-27 05:18] LABS: ALT/SGPT 13 U/L (12-78); AST/SGOT 10 U/L (15-37); Albumin 1.9 g/dL (3.4-5.0); Alkaline Phosphatase 50 U/L (45-117); BUN Blood Urea Nitrogen 19 mg/dL (7-18); Bicarbonate 33 mmol/L (21-32); Bilirubin Total 0.3 mg/dL (0.2-1.0); Glucose Level 160 mg/dL (74-106); Phosphorus 1.9 mg/dL (2.5-4.9); Potassium 3.9 mmol/L (3.5-5.1); Protein, Total 5.6 g/dL (6.4-8.2); Sodium Level 141 mmol/L (136-145)
[2018-06-27 05:43] LABS: Blood Morphology Comment NOT SEEN (NOT SEEN); Platelet Estimate ADEQ
[2018-06-27] MEDS ORDERED: POTASSIUM PHOS IN 0.9 % NACL 15 MMOL/250 ML BAG IV ONE (05:44)
[2018-06-27 05:49] LABS: Arterial Blood Carboxyhemoglob 1.6 % (0-1.5); Blood Gas Oxyhemoglobin 95.6 % (94-97); Blood O2 Saturation 97.8 % (92-98.5)
[2018-06-27] MEDS: OCTREOTIDE IV SCH ×2 (05:58→17:15)
[2018-06-27] MEDS ORDERED: ALBUMIN HUMAN 25% 100 ML IV ONE (07:26)
[2018-06-27] MEDS ORDERED: NOREPINEPHRINE 4 MG in D5W 250 ML IV PRN (07:40)
--- NOTE | 2018-06-27 07:53 | RAD REPORT ---
EXAM DESCRIPTION: Keshia Single View06/27/2018 6:42 am CLINICAL HISTORY: Delete that shortness of breath COMPARISON: June 26 FINDINGS: The lungs appear clear of acute infiltrate. The heart is borderline enlarged. Nasogastric tube is present stomach. Endotracheal tube has its tip 9 centimeters above the sherrill IMPRESSION: An endotracheal tube has its tip 9 centimeters above the sherrill
[2018-06-27] MEDS ORDERED: HALOPERIDOL LACT 5 MG/ML INJ IV PRN (08:20)
--- NOTE | 2018-06-27 08:39 | P.CNS ---
Date of Consult: 06/27/18 Reason for Consult: When manage when Chief Complaint: Duodenal Perforation History of Present Illness: Patient is 57 years of age admitted with a perforated duodenum and peritonitis he was operated upon is currently on a ventilator agitated likely low blood pressure patient does have a history of COPD currently alert responsive agitated wants the endotracheal tube out patient's white count was elevated Allergies No Known Allergies Allergy (Verified 12/27/16 07:46) Home Medications: Ibuprofen [Advil] 100 mg PO Q4H 06/25/18 - Past Medical/Surgical History Diabetic: No -: HTN -: COPD -: hernia repair - Social History Smoking Status: Current every day smoker Alcohol use: No CD- Drugs: No Caffeine use: No Place of Residence: Home Review of Systems is unable to be obtained Physical Examination Temp Pulse Resp BP Pulse Ox 98.8 F 75 12 100/56 L 98 06/27/18 04:00 06/27/18 06:00 06/27/18 06:00 06/27/18 06:00 06/27/18 06:00 General: Alert, Cachectic, Moderate distress Respiratory: Clear to auscultation bilaterally Cardiovascular: No edema, Normal S1 S2 Gastrointestinal: Hypoactive - Problems (1) Respiratory failure Current Visit: Yes Status: Acute Plan: Patient is 57 years of age with a history of COPD admitted with a perforated duodenum that was operated upon as currently stable to be weaned off and extubated history of COPD patient is mildly anemic white count is back down to 12.8 patient is hypercapnic labs reviewed renal function is normal prior some brought Wanna plan to wean off and extubate Qualifiers: Chronicity: acute
[2018-06-27] MEDS: MEDIHONEY 44 ML TOPICAL TUBE TOP SCH (09:53)
[2018-06-27] MEDS: ARFORMOTEROL TARTRATE 15 MCG/2 ML VIAL.NEB NEB SCH ×2 (10:25→19:23)
--- NOTE | 2018-06-27 12:39 | EKG ---
Test Date: 2018-06-27 Test Time: 09:13:20 Weather Clerk: JULIO MEASUREMENT RESULTS: Intervals: Rate: 101 [place]: 162 QRSD: 96 QT: 358 QTc: 464 [place]: P: 73 [place]: 162 QRS: 51 T: 50 INTERPRETIVE STATEMENTS: Sinus tachycardia Otherwise normal ECG Compared to ECG 06/26/2018 08:46:29 Sinus rhythm no longer present Electronically Signed On 06-27-18 12:38:36 TOOLS AND PARTS ATTENDANT by Darek Ornelas
--- NOTE | 2018-06-27 12:44 | P.PN ---
Subjective Date of Service: 06/27/18 Called to see patient because of hypotension. Review chart once again. Patient had hypoalbuminemia. Patient's intake and output was -500 over the last 12 hr. Will replenish fluid and replace albumin transiently. Monitor vitals and may need to start vasopressors temporarily Review of Systems is unable to be obtained (intubated and sedated) Physical Examination - Vital Signs Temperature: 98.8 F Blood Pressure: 70/40 Pulse: 80 Respirations: 19 Pulse Ox (%): 97 - Physical Exam General: Other (intubated and sedated) Respiratory: Clear to auscultation bilaterally, Normal air movement Cardiovascular: Regular rate/rhythm, Normal S1 S2, No murmurs Gastrointestinal: Normal bowel sounds, Soft and benign, Non-distended Musculoskeletal: No clubbing, No swelling - Studies Medications List Reviewed: Yes Assessment & Plan - Problems (Diagnosis) (1) Acute respiratory failure Onset Date: 06/26/18 Current Visit: Yes Status: Acute Qualifiers: Respiratory failure complication: unspecified whether with hypoxia or hypercapnia Qualified Code(s): J96.00 - Acute respiratory failure, unspecified whether with hypoxia or hypercapnia (2) Duodenal ulcer disease Onset Date: 06/26/18 Current Visit: Yes Status: Acute (3) Peritonitis Onset Date: 06/26/18 Current Visit: Yes Status: Acute (4) COPD (chronic obstructive pulmonary disease) Onset Date: 06/26/18 Current Visit: Yes Status: Chronic Qualifiers: COPD type: chronic bronchitis Chronic bronchitis type: simple Qualified Code(s): J41.0 - Simple chronic bronchitis (5) HTN (hypertension) Onset Date: 06/26/18 Current Visit: Yes Status: Chronic Qualifiers: Hypertension type: essential hypertension Qualified Code(s): I10 - Essential (primary) hypertension - Plan Plan: 1. Bolus NS x 1L(I/O's=-500cc) 2. IV 25g albumin x 1 3. Vasopressors if no response 4. NPO 5. Monitor H&H closely as well as renal function 6. Stop propofol 7. Fentanyl for sedation 8. Echocardiogram - Advance Directives Does patient have a Living Will: No Does patient have a Durable POA for Healthcare: No Critical Care: Yes Time Spent Managing PTS Care (In Minutes): 35
[2018-06-27] MEDS: ALBUTEROL 2.5 MG/3 ML NEB SOL NEB SCH ×2 (13:20→19:24)
[2018-06-27] MEDS: IPRATROPIUM BROM 0.5MG/2.5ML NEB SCH ×2 (13:20→19:23)
[2018-06-27] MEDS: FENTANYL CITR 100 MCG/2 ML IV PRN ×3 (13:25→21:06)
--- NOTE | 2018-06-27 14:12 | P.PN ---
Subjective Date of Service: 06/27/18 Chief Complaint: Duodenal Perforation Patient seen and examined at bedside with RN. Chart reviewed. Case discussed with general surgery at this time. Patient continues to be intubated and sedated. s/p perforated duodenal repair. Overnight she became hypotensive postoperatively. Postop day 2 was given 1 L of fluids. Patient responded well to the fluids and blood pressure did come up to 1 times over 58. General surgery was notified. This morning patient continues to be on the lower side of for his blood pressure. Patient was given albumin is low at nighttime. CPAP trial of was done today. Patient however failed the CPAP trial. Review of Systems 10-point ROS is otherwise unremarkable Physical Examination - Vital Signs Temperature: 98.8 F Blood Pressure: 70/40 Pulse: 80 Respirations: 19 Pulse Ox (%): 97 - Physical Exam General: Mild distress, Other (Intubated ) HEENT: Atraumatic, PERRLA, EOMI Neck: Supple, JVD not distended Respiratory: Normal air movement, Expiratory wheezes, Inspiratory wheezes Cardiovascular: Regular rate/rhythm, Normal S1 S2, No rubs Gastrointestinal: Normal bowel sounds, Tenderness Musculoskeletal: No tenderness Integumentary: No rashes Neurological: Normal tone Lymphatics: No axilla or inguinal lymphadenopathy - Studies Medications List Reviewed: Yes Assessment And Plan - Current Problems (Diagnosis) (1) Acute respiratory failure Onset Date: 06/26/18 Current Visit: Yes Status: Acute Plan: Patient intubated for surgery -Remained intubated. Sedation stopping due to hypertension. Held off and fentanyl p.r.n. if placed for pain and agitation. -patient failed CPAP trial today -given the extent of the duodenal ulcer perforation patient is to remain intubated f for now and will re-attempt CPAP trial tomorrow morning for possible extubation Qualifiers: Respiratory failure complication: unspecified whether with hypoxia or hypercapnia Qualified Code(s): J96.00 - Acute respiratory failure, unspecified whether with hypoxia or hypercapnia (2) Duodenal ulcer disease Onset Date: 06/26/18 Current Visit: Yes Status: Acute Plan: Duodenal Ulcer Perforation with Peritonitis and septic shock -Patient has been taking Ibuprofen recently at a higher dose. -IV fluids and IV protonix and Octerotide -IV abx for acute perforation and infection -Gen Surgery consulted. Recommendation appreciated -s/p Repair with POD# 2 -NG tube in place and JUANI drain in place (3) Peritonitis Onset Date: 06/26/18 Current Visit: Yes Status: Acute Plan: Peritonitis with septic shock now -IV pressors along with IV fluids with caution and this time -IV abx for possible infection -blood culture urine culture and chest x-ray pending at this -pulmonology in general surgery consulted on the case appreciate recommendations (4) HTN (hypertension) Onset Date: 06/26/18 Current Visit: Yes Status: Chronic Plan: Restart Home medication -NPO for now And thus IV medication PRN Qualifiers: Hypertension type: essential hypertension Qualified Code(s): I10 - Essential (primary) hypertension (5) COPD (chronic obstructive pulmonary disease) Onset Date: 06/26/18 Current Visit: Yes Status: Chronic Plan: COPD -Duonebs Qualifiers: COPD type: chronic bronchitis Chronic bronchitis type: simple Qualified Code(s): J41.0 - Simple chronic bronchitis - Plan Awaiting clinical improvement at this time. Continue monitor patient closely. Continue to monitor for signs of worsening of peritonitis or complication from the surgery. Now on pressor. Will continue to monitor closely. Caution with volume expanders. Discharge Plan: Home Plan to discharge in: Greater than 2 days - Code Status/Comfort Care Code Status Assessed: Yes Critical Care: Yes
--- NOTE | 2018-06-27 14:37 | PN ---
Date of Progress Note: 06/27/2018 Diagnoses: Peritonitis, a perforated duodenal ulcer, status post patch. Review of Systems: Unable to be obtained. Physical Examination: General: The patient is awake, alert, intubated. Chest: Bilateral breath sounds. Abdomen: Soft, distended. Intact incisions, JUANI drain. He still having serosanguineous fluid coming out both of them. Extremities: Good capillary refill. Laboratory Data: Blood work shows a WBC count of 12.8 coming down from 23.9 and platelets of 193. I NR is 1.21. Bicarb 33, glucose 160. Plan: For today, we gofing to ask the medical doctors to help us with extubation, ambulation. Defin itely no diet. The NG tube with a JUANI drain. We will not see this patient as well. We ge t him PICC line and a TPN doing some compromising repaired. HM/MODL Voice ID: [id number] Report ID: [id number]
[2018-06-27] MEDS: AA 5%/D20W/ELECTROLYTES-TPN 2,000 ML, Lipids 20% 250 ML with MULTIVITAMINS INJ 10 ML IV SCH ×3 (17:15)
[2018-06-27] MEDS: NA CHLORIDE 0.9% 1,000 ML IV SCH ×2 (18:15→21:07)
[2018-06-28] MEDS: PIPER/TAZO/NS 3.375gm 3.375 GM/100 ML BAG IVPB SCH ×3 (00:05→16:54)
[2018-06-28] MEDS: ALBUTEROL 2.5 MG/3 ML NEB SOL NEB SCH ×2 (01:10→07:35)
[2018-06-28] MEDS: IPRATROPIUM BROM 0.5MG/2.5ML NEB SCH ×4 (01:10→19:49)
[2018-06-28] MEDS: NA CHLORIDE 0.9% IV SCH ×6 (02:00→22:09)
[2018-06-28] MEDS: PANTOPRAZOLE IV SCH ×4 (02:00→22:09)
[2018-06-28] MEDS: FENTANYL CITR 100 MCG/2 ML IV PRN ×3 (02:10→18:30)
[2018-06-28] MEDS: OCTREOTIDE IV SCH ×2 (02:20→12:00)
[2018-06-28 05:08] LABS: Arterial Blood Carboxyhemoglob 1.8 % (0-1.5); Blood Gas Oxyhemoglobin 92.7 % (94-97)
[2018-06-28 06:11] LABS: Absolute Lymphocytes (CBC) 0.9 K/uL (0.7-4.9); Absolute Monocytes 1.5 K/uL (0.1-1.3); Absolute Neutrophil 8.9 K/uL (1.8-8.0); Basophils % 0.8 % (0-1.3); Eosinophils % 1.9 % (0-4.4); Hematocrit 35.3 % (39.6-49.0); MCH 25.9 pg (27.0-35.0); MCV 81.3 fL (80-100); MPV 8.4 fL (7.6-11.3); Monocytes % 13.1 % (3.3-12.3); RBC Red Blood Cell Count 4.35 M/uL (4.33-5.43)
[2018-06-28 06:18] LABS: Protime INR 1.12
[2018-06-28 06:38] LABS: ALT/SGPT 14 U/L (12-78); AST/SGOT 12 U/L (15-37); Albumin 2.3 g/dL (3.4-5.0); Alkaline Phosphatase 50 U/L (45-117); BUN Blood Urea Nitrogen 15 mg/dL (7-18); Bicarbonate 31 mmol/L (21-32); Bilirubin Total 0.5 mg/dL (0.2-1.0); Glucose Level 144 mg/dL (74-106); Magnesium 1.9 mg/dL (1.8-2.4); Phosphorus 2.8 mg/dL (2.5-4.9); Potassium 3.8 mmol/L (3.5-5.1); Protein, Total 6.3 g/dL (6.4-8.2); Sodium Level 140 mmol/L (136-145)
[2018-06-28] MEDS: ARFORMOTEROL TARTRATE 15 MCG/2 ML VIAL.NEB NEB SCH ×2 (07:35→19:49)
[2018-06-28] MEDS: MEDIHONEY 44 ML TOPICAL TUBE TOP SCH (09:01)
[2018-06-28] MEDS ORDERED: ALBUTEROL 2.5 MG/3 ML NEB SOL NEB PRN (11:06)
--- NOTE | 2018-06-28 11:07 | P.PN ---
Subjective Date of Service: 06/28/18 Chief Complaint: Respiratory failure Subjective: Improving (Patient is improving tolerated as BT and was extubated today is very alert responsive cooperative this dysphonic after extubation heavy smoker) Review of Systems is unable to be obtained Physical Examination - Vital Signs Temperature: 98.9 F Blood Pressure: 141/75 Pulse: 97 Respirations: 19 Pulse Ox (%): 94 - Physical Exam General: Alert, Cooperative Neck: Supple Respiratory: Clear to auscultation bilaterally - Studies Medications List Reviewed: Yes Assessment & Plan - Problems (Diagnosis) (1) Respiratory failure Current Visit: Yes Status: Acute Plan: Patient admitted with postop respiratory failure he is doing well was extubated this morning presumably has COPD heavy smoker be weaned off Levophed continue with bronchodilator he to be evaluated an outpatient pulmonary function testing Qualifiers: Chronicity: acute
--- NOTE | 2018-06-28 12:03 | RAD REPORT ---
EXAM DESCRIPTION: RAD - Chest Single View - 06/28/2018 6:56 am CLINICAL HISTORY: intubated Chest pain. COMPARISON: Chest Single View dated 06/27/2018; Chest Single View dated 06/26/2018; Chest Single Vie w dated 06/25/2018; Chest Single View dated 06/25/2018 FINDINGS: Portable technique limits examination quality. Tip of the ET tube is above the sherrill. Enteric tube descends into the stomach. The heart is mildly e nlarged in size. Small left pleural effusion likely present.
--- NOTE | 2018-06-28 12:26 | P.PN ---
Subjective Date of Service: 06/28/18 Chief Complaint: Respiratory failure Patient seen and examined at bedside with RN. Chart reviewed. Case discussed with general surgery and pulmonology at this time. Patient is currently extubated doing well overall. No complaints to offer overnight. Did well overall and is currently off of Levophed as well. Review of Systems 10-point ROS is otherwise unremarkable Physical Examination - Vital Signs Temperature: 98.9 F Blood Pressure: 141/75 Pulse: 97 Respirations: 19 Pulse Ox (%): 94 - Physical Exam General: Alert, In no apparent distress, Other (NG tube in place) HEENT: Atraumatic, PERRLA, EOMI Neck: Supple, JVD not distended Respiratory: Normal air movement, Expiratory wheezes, Inspiratory wheezes Cardiovascular: Regular rate/rhythm, Normal S1 S2 Gastrointestinal: Hypoactive, No tenderness Musculoskeletal: No tenderness Integumentary: No rashes Neurological: Normal speech, Normal tone, Normal affect Lymphatics: No axilla or inguinal lymphadenopathy - Studies Medications List Reviewed: Yes Assessment And Plan - Current Problems (Diagnosis) (1) Sepsis Current Visit: Yes Status: Acute Plan: Sepsis most likely secondary to perforated duodenal ulcer versus wound on the left leg -blood culture is pending at this time. Wound culture is positive for Staph aureus and Bactine -currently patient is on IV Zosyn will go ahead and add Levaquin at this time -continue monitor patient closely Qualifiers: Sepsis type: sepsis due to unspecified organism Qualified Code(s): A41.9 - Sepsis, unspecified organism (2) Acute respiratory failure Onset Date: 06/26/18 Current Visit: Yes Status: Resolved Plan: Patient intubated for surgery. Now extubated -doing well overall will continue to monitor closely Qualifiers: Respiratory failure complication: unspecified whether with hypoxia or hypercapnia Qualified Code(s): J96.00 - Acute respiratory failure, unspecified whether with hypoxia or hypercapnia (3) Duodenal ulcer disease Onset Date: 06/26/18 Current Visit: Yes Status: Acute Plan: Duodenal Ulcer Perforation with Peritonitis -s/p Repair with POD# 3 -Patient has been taking Ibuprofen recently at a higher dose. -continue with IV protonix and Octerotide -continue with IV antibiotics as well -Gen Surgery consulted. Recommendation appreciated -NG tube in place and JUANI drain in place -will keep NPO till further recommendations from the surgery (4) Peritonitis Onset Date: 06/26/18 Current Visit: Yes Status: Acute Plan: Peritonitis with perforation -currently off of Levophed. Blood pressure is stable at this time. -on IV Zosyn. Will go ahead and continue that here in the hospital (5) HTN (hypertension) Onset Date: 06/26/18 Current Visit: Yes Status: Chronic Plan: Restart Home medication -NPO for now And thus IV medication PRN Qualifiers: Hypertension type: essential hypertension Qualified Code(s): I10 - Essential (primary) hypertension (6) COPD (chronic obstructive pulmonary disease) Onset Date: 06/26/18 Current Visit: Yes Status: Chronic Plan: COPD -[place] Qualifiers: COPD type: chronic bronchitis Chronic bronchitis type: simple Qualified Code(s): J41.0 - Simple chronic bronchitis - Plan Awaiting clinical improvement at this time. Currently extubated. Doing well overall. Continue antibiotics Zosyn and will add Levaquin at this time for wound coverage. Will follow up with general surgery for further care Discharge Plan: Other Plan to discharge in: 72 Hours - Code Status/Comfort Care Code Status Assessed: Yes Critical Care: Yes
[2018-06-28] MEDS: Levofloxacin500mg IV 500 MG/100 ML BAG IV SCH (14:21)
[2018-06-28] MEDS ORDERED: HYDRALAZINE HCL 20 MG/ML VIAL IV PRN (16:30)
[2018-06-28] MEDS: AA 5%/D20W/ELECTROLYTES-TPN 2,000 ML, Lipids 20% 250 ML with MULTIVITAMINS INJ 10 ML IV SCH ×3 (16:55)
[2018-06-28] MEDS ORDERED: HYDRALAZINE HCL 20 MG/ML VIAL IV ONE (17:44)
[2018-06-28] MEDS ORDERED: NA CHLORIDE 0.9% 500 ML IV ONE (18:57)
[2018-06-28] MEDS: METOPROLOL TARTRATE 5 MG/5 ML INJ IV SCH ×3 (19:00→19:59)
[2018-06-28] MEDS ORDERED: METOPROLOL TARTRATE 5 MG/5 ML INJ IV ONE (19:03)
[2018-06-28] MEDS ORDERED: METOPROLOL TARTRATE 5 MG/5 ML INJ IV PRN (19:38)
[2018-06-29] MEDS: METOPROLOL TARTRATE 5 MG/5 ML INJ IV SCH ×6 (00:11→20:23)
[2018-06-29] MEDS: PIPER/TAZO/NS 3.375gm 3.375 GM/100 ML BAG IVPB SCH ×3 (00:11→17:26)
[2018-06-29] MEDS: IPRATROPIUM BROM 0.5MG/2.5ML NEB SCH ×4 (01:45→19:28)
[2018-06-29] MEDS: NA CHLORIDE 0.9% 1,000 ML IV SCH ×2 (02:10→04:12)
[2018-06-29] MEDS: NA CHLORIDE 0.9% IV SCH (04:00)
[2018-06-29] MEDS: PANTOPRAZOLE IV SCH (04:00)
[2018-06-29] MEDS ORDERED: D50W 25 GM/50 ML SYRINGE IV PRN (05:24)
[2018-06-29] MEDS ORDERED: GLUCAGON 1 MG/VIAL IM PRN (05:24)
[2018-06-29] MEDS ORDERED: DEXTROSE 10%-WATER 500 ML IV PRN (05:24)
[2018-06-29 05:49] LABS: BUN Blood Urea Nitrogen 15 mg/dL (7-18); Bicarbonate 31 mmol/L (21-32); Glucose Level 137 mg/dL (74-106); Phosphorus 2.9 mg/dL (2.5-4.9); Potassium 3.9 mmol/L (3.5-5.1); Sodium Level 140 mmol/L (136-145)
[2018-06-29 05:53] LABS: Prealbumin 8.4 mg/dL (20-40)
[2018-06-29] MEDS: INSULIN -REGULAR HUMAN 50 UNIT/0.5 ML ML SQ SCH ×3 (05:57→18:00)
[2018-06-29] MEDS ORDERED: KCL 20 MEQ/100 mL IVPB 20 MEQ/100 ML BAG IV SCH (06:00)
[2018-06-29] MEDS: ARFORMOTEROL TARTRATE 15 MCG/2 ML VIAL.NEB NEB SCH ×2 (08:06→19:28)
[2018-06-29] MEDS: MEDIHONEY 44 ML TOPICAL TUBE TOP SCH (08:35)
[2018-06-29] MEDS ORDERED: NA CHLORIDE 0.9% IV SCH (09:00)
[2018-06-29] MEDS ORDERED: PANTOPRAZOLE IV SCH (09:00)
--- NOTE | 2018-06-29 09:48 | CON ---
History Of Present Illness: Mr. Yu has been in our hospital for several days. He had a perforat ed duodenal ulcer. He apparently came in on the 25 of June, had surgery, did well for several days, but yesterday went into atrial fib. He was placed in the ICU. He received several doses of IV Lopressor and is in sinus rhythm now. The patient has not had atrial fibrillation or heart disease in the past. He denies a history of diabetes or dyslipidemia. He takes ibuprofen as his only outpat ient medication, which is probably one of the main reasons why he had a duodenal ulcer. He took no p rescription medications. Physical Examination: GENERAL: He is alert, oriented, pleasant, appears to be his stated age of 57. 6 feet tall, 231 poun ds. Obese, alert, oriented. He has an NG tube and appears to be a little bit uncomfortable from nelda t. Not having respiratory distress. Denies pain. LUNGS: Clear. HEART: Regular rate and rhythm. No gallop or murmur. ABDOMEN: Soft. EXTREMITIES: Normal. Assessment And Plan: The patient is still n.p.o. because of his ulcer and perforated abdominal viscu s. So, we will give Lopressor IV. FDC, he should probably be on Lopressor, avoid nonsteroidal anti-inflammatories altogether. We can do an echocardiogram and nuclear stress test at some point. The patient is a cigarette smoker. He has been put through the routine of smoking cessation instruc tion. NATALYA Voice ID: [id number] Report ID: [id number]
--- NOTE | 2018-06-29 10:18 | EKG ---
Test Date: 2018-06-28 Test Time: 18:50:24 Manager Transfusion: RNNT MEASUREMENT RESULTS: Intervals: Rate: 173 TN: QRSD: 92 QT: 358 QTc: 607 [place]: P: TN: QRS: -23 T: 242 INTERPRETIVE STATEMENTS: Atrial fibrillation with rapid ventricular response Inferior infarct, age undetermined ST abnormality, possible lateral subendocardial injury Abnormal ECG Compared to ECG 06/27/2018 09:13:20 ST (T wave) deviation now present Sinus tachycardia no longer present Electronically Signed On 06-29-18 10:17:41 LIGHT BULB REPLACER by Darek Ornelas
[2018-06-29] MEDS: FENTANYL CITR 100 MCG/2 ML IV PRN ×2 (12:19→17:35)
[2018-06-29] MEDS ORDERED: SODIUM CHLORIDE 0.9% 10ML INJ IV PRN (13:07)
[2018-06-29] MEDS: Levofloxacin500mg IV 500 MG/100 ML BAG IV SCH (13:21)
--- NOTE | 2018-06-29 14:32 | P.PN ---
Subjective Date of Service: 06/29/18 Chief Complaint: Respiratory failure Patient seen and examined at bedside with RN. Chart reviewed. Case discussed with general surgery and pulmonology at this time. Patient yesterday had an episode of atrial fibrillation with RVR with heart rate of 1 50-160. Patient was given IV Lopressor x2 and has a rhythm converted back to sinus rhythm. Cardiology was consulted at that time. Patient was placed on scheduled Lopressor q.4 hr. This morning patient has been doing well overall complains of mild pain. Review of Systems 10-point ROS is otherwise unremarkable Physical Examination - Vital Signs Temperature: 98.6 F Blood Pressure: 137/69 Pulse: 85 Respirations: 23 Pulse Ox (%): 96 - Physical Exam General: Alert, In no apparent distress, Other (NG tube in place) HEENT: Atraumatic, PERRLA, EOMI Neck: Supple, JVD not distended Respiratory: Clear to auscultation bilaterally, Normal air movement Cardiovascular: Regular rate/rhythm, Normal S1 S2 Gastrointestinal: Normal bowel sounds, Tenderness Musculoskeletal: No tenderness Integumentary: No rashes Neurological: Normal speech, Normal tone, Normal affect Lymphatics: No axilla or inguinal lymphadenopathy - Studies Medications List Reviewed: Yes Assessment And Plan - Current Problems (Diagnosis) (1) Sepsis Current Visit: Yes Status: Acute Plan: Sepsis most likely secondary to perforated duodenal ulcer versus wound on the left leg -blood culture is pending at this time. Wound culture is positive for Staph aureus and actinobacter -currently patient is on IV Zosyn and Levaquin at this time -continue monitor patient closely Qualifiers: Sepsis type: sepsis due to unspecified organism Qualified Code(s): A41.9 - Sepsis, unspecified organism (2) Acute respiratory failure Onset Date: 06/26/18 Current Visit: Yes Status: Resolved Plan: Patient intubated for surgery. Now extubated -doing well overall will continue to monitor closely Qualifiers: Respiratory failure complication: unspecified whether with hypoxia or hypercapnia Qualified Code(s): J96.00 - Acute respiratory failure, unspecified whether with hypoxia or hypercapnia (3) Duodenal ulcer disease Onset Date: 06/26/18 Current Visit: Yes Status: Acute Plan: Duodenal Ulcer Perforation with Peritonitis 2/2 to Ibuprofen use -s/p Repair with POD# 4 -Gen Surgery consulted. Recommendation appreciated -IV protonix BID now -NG tube in place and JUANI drain in place -will keep NPO till further recommendations from the surgery (4) Peritonitis Onset Date: 06/26/18 Current Visit: Yes Status: Acute Plan: Peritonitis with perforation -currently off of Levophed. Blood pressure is stable at this time. (5) HTN (hypertension) Onset Date: 06/26/18 Current Visit: Yes Status: Chronic Plan: Restart Home medication -NPO for now and thus IV medication PRN Qualifiers: Hypertension type: essential hypertension Qualified Code(s): I10 - Essential (primary) hypertension (6) COPD (chronic obstructive pulmonary disease) Onset Date: 06/26/18 Current Visit: Yes Status: Chronic Plan: COPD -Duonebs Qualifiers: COPD type: chronic bronchitis Chronic bronchitis type: simple Qualified Code(s): J41.0 - Simple chronic bronchitis (7) Afib Current Visit: Yes Status: Acute Plan: Acute atrial fibrillation with RVR -IV Lopressor x2 reverted back to sinus rhythm -cardiology consulted. Appreciated recommendations -will get echocardiogram done at this time -anticoagulation on hold due to risk of GI bleed with recent perforation - Plan Awaiting clinical improvement at this time. Discharge Plan: Home Plan to discharge in: Greater than 2 days - Code Status/Comfort Care Code Status Assessed: Yes Critical Care: Yes
[2018-06-29] MEDS: AA 5%/D20W/ELECTROLYTES-TPN 2,000 ML, Lipids 20% 250 ML with MULTIVITAMINS INJ 10 ML IV SCH ×3 (17:25)
[2018-06-29] MEDS: PANTOPRAZOLE 40 MG INJ IVP SCH (20:23)
[2018-06-30] MEDS: PIPER/TAZO/NS 3.375gm 3.375 GM/100 ML BAG IVPB SCH ×3 (00:23→16:25)
[2018-06-30] MEDS: METOPROLOL TARTRATE 5 MG/5 ML INJ IV SCH ×6 (00:23→20:56)
[2018-06-30] MEDS: IPRATROPIUM BROM 0.5MG/2.5ML NEB SCH ×4 (01:51→19:49)
[2018-06-30] MEDS: INSULIN -REGULAR HUMAN 50 UNIT/0.5 ML ML SQ SCH ×4 (05:19→18:00)
[2018-06-30] MEDS ORDERED: METOPROLOL TARTRATE 5 MG/5 ML INJ IV STA (05:22)
[2018-06-30 06:05] LABS: Absolute Lymphocytes (CBC) 0.9 K/uL (0.7-4.9); Absolute Monocytes 2.2 K/uL (0.1-1.3); Absolute Neutrophil 8.4 K/uL (1.8-8.0); Basophils % 0.6 % (0-1.3); Eosinophils % 3.7 % (0-4.4); Lymphocytes % 7.8 % (15.3-44.8); MCH 25.9 pg (27.0-35.0); MCV 80.8 fL (80-100); MPV 8.5 fL (7.6-11.3); Monocytes % 18.3 % (3.3-12.3); RBC Red Blood Cell Count 4.95 M/uL (4.33-5.43)
[2018-06-30 06:27] LABS: ALT/SGPT 40 U/L (12-78); AST/SGOT 33 U/L (15-37); Albumin 2.2 g/dL (3.4-5.0); Alkaline Phosphatase 66 U/L (45-117); BUN Blood Urea Nitrogen 16 mg/dL (7-18); Bicarbonate 31 mmol/L (21-32); Bilirubin Total 0.6 mg/dL (0.2-1.0); Glucose Level 145 mg/dL (74-106); Phosphorus 3.2 mg/dL (2.5-4.9); Potassium 3.8 mmol/L (3.5-5.1); Protein, Total 6.8 g/dL (6.4-8.2); Sodium Level 140 mmol/L (136-145)
[2018-06-30] MEDS: NA CHLORIDE 0.9% 1,000 ML IV SCH (06:45)
[2018-06-30] MEDS ORDERED: KCL 20 MEQ/100 mL IVPB 20 MEQ/100 ML BAG IV SCH (07:00)
[2018-06-30] MEDS: FENTANYL CITR 100 MCG/2 ML IV PRN (08:04)
[2018-06-30] MEDS: PANTOPRAZOLE 40 MG INJ IVP SCH ×2 (08:05→20:56)
[2018-06-30] MEDS: ARFORMOTEROL TARTRATE 15 MCG/2 ML VIAL.NEB NEB SCH ×2 (08:22→19:49)
--- NOTE | 2018-06-30 10:07 | PN ---
Subjective: Mr. Yu remains in sinus rhythm. We will continue intravenous beta-blu. When he is able to take food, we will stop that and probably give him Toprol-XL 50 mg once a day. At some l ater date he should probably do a stress test. RADHA/HOLLY Voice ID: [id number] Report ID: [id number]
[2018-06-30] MEDS: Levofloxacin500mg IV 500 MG/100 ML BAG IV SCH (12:58)
--- NOTE | 2018-06-30 14:28 | P.PN ---
Subjective Date of Service: 06/30/18 Chief Complaint: Respiratory failure Patient seen and examined at bedside with RN. Chart reviewed. Case discussed with general surgery and pulmonology at this time. Doing well today. No complaints to offer overnight. Will get him out of bed today to this chair. Review of Systems 10-point ROS is otherwise unremarkable Physical Examination - Vital Signs Temperature: 98.1 F Blood Pressure: 115/64 Pulse: 89 Respirations: 20 Pulse Ox (%): 93 - Physical Exam General: Alert, In no apparent distress, Other (NG tube in place) HEENT: Atraumatic, PERRLA, EOMI Neck: Supple, JVD not distended Respiratory: Clear to auscultation bilaterally, Normal air movement Cardiovascular: Regular rate/rhythm, Normal S1 S2 Gastrointestinal: Normal bowel sounds, No tenderness Musculoskeletal: No tenderness Integumentary: No rashes Neurological: Normal speech, Normal tone, Normal affect Lymphatics: No axilla or inguinal lymphadenopathy - Studies Medications List Reviewed: Yes Assessment And Plan - Current Problems (Diagnosis) (1) Sepsis Current Visit: Yes Status: Acute Plan: Sepsis most likely secondary to perforated duodenal ulcer versus wound on the left leg -blood culture is pending at this time. Wound culture is positive for Staph aureus and actinobacter -currently patient is on IV Zosyn and Levaquin at this time -continue monitor patient closely Qualifiers: Sepsis type: sepsis due to unspecified organism Qualified Code(s): A41.9 - Sepsis, unspecified organism (2) Acute respiratory failure Onset Date: 06/26/18 Current Visit: Yes Status: Resolved Plan: Patient intubated for surgery. Now extubated -doing well overall will continue to monitor closely Qualifiers: Respiratory failure complication: unspecified whether with hypoxia or hypercapnia Qualified Code(s): J96.00 - Acute respiratory failure, unspecified whether with hypoxia or hypercapnia (3) Duodenal ulcer disease Onset Date: 06/26/18 Current Visit: Yes Status: Acute Plan: Duodenal Ulcer Perforation with Peritonitis 2/2 to Ibuprofen use -s/p Repair with POD# 4 -Gen Surgery consulted. Recommendation appreciated -IV protonix BID now -NG tube in place and JUANI drain in place -will keep NPO till further recommendations from the surgery (4) Peritonitis Onset Date: 06/26/18 Current Visit: Yes Status: Acute Plan: Peritonitis with perforation -currently off of Levophed. Blood pressure is stable at this time. (5) HTN (hypertension) Onset Date: 06/26/18 Current Visit: Yes Status: Chronic Plan: Restart Home medication -NPO for now and thus IV medication PRN Qualifiers: Hypertension type: essential hypertension Qualified Code(s): I10 - Essential (primary) hypertension (6) COPD (chronic obstructive pulmonary disease) Onset Date: 06/26/18 Current Visit: Yes Status: Chronic Plan: COPD -Duonebs Qualifiers: COPD type: chronic bronchitis Chronic bronchitis type: simple Qualified Code(s): J41.0 - Simple chronic bronchitis (7) Afib Current Visit: Yes Status: Acute Plan: Acute atrial fibrillation with RVR -IV Lopressor x2 reverted back to sinus rhythm -cardiology consulted. Appreciated recommendations -will get echocardiogram done at this time -anticoagulation on hold due to risk of GI bleed with recent perforation - Plan Awaiting clinical improvement at this time.
[2018-06-30] MEDS: MEDIHONEY 44 ML TOPICAL TUBE TOP SCH (16:25)
[2018-06-30] MEDS: AA 5%/D20W/ELECTROLYTES-TPN 2,000 ML, Lipids 20% 250 ML with MULTIVITAMINS INJ 10 ML IV SCH ×3 (17:53)
--- NOTE | 2018-06-30 20:10 | RAD REPORT ---
EXAM DESCRIPTION: RAD - Chest Single View - 06/30/2018 6:40 pm CLINICAL HISTORY: Shortness of breath COMPARISON: June 28 TECHNIQUE: AP portable chest image was obtained 1747 hour . FINDINGS: NG tube is in place extending below the diaphragm, off the field of view. Left upper extre mity PICC line remains in place. Left lung base opacification is present partially obscuring the left hemidiaphragm and left heart bor jazmin. Endotracheal tube has been removed since the prior examination. Heart size is normal. Upper lobe vasculature within normal limits. No pneumothorax identifiable. No measurable right pleural effusion . Small left pleural effusion is probably present. No acute bony abnormality seen. No acute aortic fi ndings suspected. IMPRESSION: Lower left lung field pneumonia suspected. Patient likely has small pleural effusion as well.
--- NOTE | 2018-06-30 21:58 | P.PN ---
Subjective Date of Service: 06/30/18 Chief Complaint: Perforated duodenal ulcer with severe peritonitis Subjective: Improving Review of Systems 10-point ROS is otherwise unremarkable Physical Examination - Vital Signs Temperature: 98.8 F Blood Pressure: 108/62 Pulse: 92 Respirations: 18 Pulse Ox (%): 95 - Physical Exam General: Alert, Cooperative HEENT: PERRLA, EOMI Neck: Supple Respiratory: Clear to auscultation bilaterally Cardiovascular: Regular rate/rhythm Gastrointestinal: Hypoactive, No rebound, Distended (softly) Musculoskeletal: No contractures - Studies Medications List Reviewed: Yes Assessment And Plan - Plan NGT TPN OOB MAy move to floor when ok with medical service Cont NPO seq teds Protonox drip
[2018-07-01] MEDS: METOPROLOL TARTRATE 5 MG/5 ML INJ IV SCH ×7 (00:45→23:59)
[2018-07-01] MEDS: PIPER/TAZO/NS 3.375gm 3.375 GM/100 ML BAG IVPB SCH ×3 (00:45→17:19)
[2018-07-01] MEDS: IPRATROPIUM BROM 0.5MG/2.5ML NEB SCH ×4 (02:25→19:36)
[2018-07-01 05:21] VITALS: BMI 30.4
[2018-07-01 05:48] LABS: Absolute Lymphocytes (CBC) 1.3 K/uL (0.7-4.9); Absolute Monocytes 2.6 K/uL (0.1-1.3); Absolute Neutrophil 8.8 K/uL (1.8-8.0); Eosinophils % 3.1 % (0-4.4); Hematocrit 39.6 % (39.6-49.0); Lymphocytes % 9.6 % (15.3-44.8); MCH 25.7 pg (27.0-35.0); MPV 8.2 fL (7.6-11.3); Monocytes % 19.4 % (3.3-12.3); RBC Red Blood Cell Count 4.89 M/uL (4.33-5.43)
[2018-07-01] MEDS: INSULIN -REGULAR HUMAN 50 UNIT/0.5 ML ML SQ SCH ×4 (06:00→17:53)
[2018-07-01 06:04] LABS: ALT/SGPT 58 U/L (12-78); AST/SGOT 38 U/L (15-37); Albumin 2.1 g/dL (3.4-5.0); Alkaline Phosphatase 70 U/L (45-117); BUN Blood Urea Nitrogen 22 mg/dL (7-18); Bicarbonate 33 mmol/L (21-32); Bilirubin Total 0.5 mg/dL (0.2-1.0); Glucose Level 156 mg/dL (74-106); Potassium 3.9 mmol/L (3.5-5.1); Protein, Total 6.9 g/dL (6.4-8.2); Sodium Level 138 mmol/L (136-145)
[2018-07-01] MEDS ORDERED: KCL 20 MEQ/100 mL IVPB 20 MEQ/100 ML BAG IV SCH (07:00)
[2018-07-01 07:35] LABS: Blood Morphology Comment NOT SEEN (NOT SEEN); Platelet Estimate ADEQ
[2018-07-01] MEDS: PANTOPRAZOLE 40 MG INJ IVP SCH ×2 (08:11→20:00)
[2018-07-01] MEDS: ARFORMOTEROL TARTRATE 15 MCG/2 ML VIAL.NEB NEB SCH ×2 (08:48→19:36)
--- NOTE | 2018-07-01 10:49 | PN ---
Mr. Yu is in sinus rhythm most of the time, but he will have paroxysmal atrial fibrillation that lasts for a few hours, sometimes 2 or 3 times a day. We will increase the dose of his Lopressor. At this point, we still do not want to give an oral med when we can. Recommend we start Betapace 120 m g every 12 hours and stop the IV Lopressor to see if that controls things. We will have an echocardi ogram tomorrow. Overall, he is recovering at about the expected rate from somebody with a perforated duodenal ulcer. RADHA/HOLLY Voice ID: [id number] Report ID: [id number]
[2018-07-01] MEDS: Levofloxacin500mg IV 500 MG/100 ML BAG IV SCH (12:01)
--- NOTE | 2018-07-01 12:36 | P.PN ---
Subjective Date of Service: 07/01/18 Chief Complaint: Perforated duodenal ulcer with severe peritonitis Patient seen and examined at bedside with RN. Chart reviewed. Case discussed with general surgery and pulmonology at this time. Overnight had SOB and had workup done consistent with PNA on the LLL. Working with PT today. Doing much better. Review of Systems 10-point ROS is otherwise unremarkable Physical Examination - Vital Signs Temperature: 98 F Blood Pressure: 119/63 Pulse: 100 Respirations: 27 Pulse Ox (%): 95 - Physical Exam General: Alert, In no apparent distress HEENT: Atraumatic, PERRLA, EOMI Neck: Supple, JVD not distended Respiratory: Clear to auscultation bilaterally, Normal air movement Cardiovascular: Regular rate/rhythm, Normal S1 S2 Gastrointestinal: Normal bowel sounds, No tenderness Musculoskeletal: No tenderness Integumentary: No rashes Neurological: Normal speech, Normal tone, Normal affect Lymphatics: No axilla or inguinal lymphadenopathy - Studies Medications List Reviewed: Yes Assessment And Plan - Current Problems (Diagnosis) (1) Sepsis Current Visit: Yes Status: Acute Plan: Sepsis most likely secondary to perforated duodenal ulcer versus wound on the left leg vs PNA LLL -blood culture is pending at this time. Wound culture is positive for Staph aureus and actinobacter -Francis with LLL PNA. Sputum Culture pending -currently patient is on IV Zosyn and Levaquin at this time -continue monitor patient closely Qualifiers: Sepsis type: sepsis due to unspecified organism Qualified Code(s): A41.9 - Sepsis, unspecified organism (2) Acute respiratory failure Onset Date: 06/26/18 Current Visit: Yes Status: Resolved Plan: Patient intubated for surgery. Now extubated. Doing well now -Cxray with Possible LLL PNA -On Levaquin and zosyn. Qualifiers: Respiratory failure complication: unspecified whether with hypoxia or hypercapnia Qualified Code(s): J96.00 - Acute respiratory failure, unspecified whether with hypoxia or hypercapnia (3) Duodenal ulcer disease Onset Date: 06/26/18 Current Visit: Yes Status: Acute Plan: Duodenal Ulcer Perforation with Peritonitis 2/2 to Ibuprofen use -s/p Repair with POD# 5 -Gen Surgery consulted. Recommendation appreciated -IV protonix BID now -NG tube in place and JUANI drain in place -will keep NPO till further recommendations from the surgery (4) Peritonitis Onset Date: 06/26/18 Current Visit: Yes Status: Acute Plan: Peritonitis with perforation -currently off of Levophed. Blood pressure is stable at this time. (5) PNA (pneumonia) Current Visit: Yes Status: Acute Plan: LLL PNA on Xray -Elevated WBC and procal pending -On IV levaquin and zosyn for now -Will continue. IS at bedside. Qualifiers: Pneumonia type: due to unspecified organism Laterality: left Lung location: lower lobe of lung Qualified Code(s): J18.1 - Lobar pneumonia, unspecified organism (6) HTN (hypertension) Onset Date: 06/26/18 Current Visit: Yes Status: Chronic Plan: Restart Home medication -NPO for now and thus IV medication PRN Qualifiers: Hypertension type: essential hypertension Qualified Code(s): I10 - Essential (primary) hypertension (7) COPD (chronic obstructive pulmonary disease) Onset Date: 06/26/18 Current Visit: Yes Status: Chronic Plan: COPD -Duonebs and Oxygen for now -Pulmonology consulted. Qualifiers: COPD type: chronic bronchitis Chronic bronchitis type: simple Qualified Code(s): J41.0 - Simple chronic bronchitis (8) Afib Current Visit: Yes Status: Acute Plan: Acute atrial fibrillation with RVR -IV Lopressor x2 reverted back to sinus rhythm -cardiology consulted. Appreciated recommendations -ECHO pending -On Lopressor 7.5mg q4h IV -anticoagulation on hold due to risk of GI bleed with recent perforation - Plan Awaiting clinical improvement at this time.
[2018-07-01] MEDS: MEDIHONEY 44 ML TOPICAL TUBE TOP SCH (13:58)
[2018-07-01] MEDS: AA 5%/D20W/ELECTROLYTES-TPN 2,000 ML, Lipids 20% 250 ML with MULTIVITAMINS INJ 10 ML IV SCH ×3 (17:18)
[2018-07-01] MEDS: FENTANYL CITR 100 MCG/2 ML IV PRN (17:24)
[2018-07-01] MEDS: NA CHLORIDE 0.9% 1,000 ML IV SCH (17:24)
[2018-07-02] MEDS: PIPER/TAZO/NS 3.375gm 3.375 GM/100 ML BAG IVPB SCH ×3 (01:23→18:07)
[2018-07-02] MEDS: IPRATROPIUM BROM 0.5MG/2.5ML NEB SCH ×4 (01:50→20:34)
[2018-07-02] MEDS: METOPROLOL TARTRATE 5 MG/5 ML INJ IV SCH ×5 (03:05→18:38)
[2018-07-02 05:10] LABS: Absolute Lymphocytes (CBC) 1.3 K/uL (0.7-4.9); Absolute Monocytes 2.8 K/uL (0.1-1.3); Basophils % 0.8 % (0-1.3); Eosinophils % 2.7 % (0-4.4); Hematocrit 39.3 % (39.6-49.0); Lymphocytes % 7.9 % (15.3-44.8); MCH 25.5 pg (27.0-35.0); MCV 81.4 fL (80-100); MPV 8.4 fL (7.6-11.3); RBC Red Blood Cell Count 4.83 M/uL (4.33-5.43)
[2018-07-02 05:11] LABS: Monocytes % 16.9 % (3.3-12.3)
[2018-07-02 05:31] LABS: ALT/SGPT 70 U/L (12-78); AST/SGOT 41 U/L (15-37); Albumin 2.1 g/dL (3.4-5.0); Alkaline Phosphatase 81 U/L (45-117); BUN Blood Urea Nitrogen 29 mg/dL (7-18); Bicarbonate 31 mmol/L (21-32); Bilirubin Total 0.5 mg/dL (0.2-1.0); Glucose Level 159 mg/dL (74-106); Potassium 3.9 mmol/L (3.5-5.1); Protein, Total 6.8 g/dL (6.4-8.2); Sodium Level 139 mmol/L (136-145)
[2018-07-02] MEDS: INSULIN -REGULAR HUMAN 50 UNIT/0.5 ML ML SQ SCH ×4 (05:58→18:00)
[2018-07-02] MEDS ORDERED: KCL 20 MEQ/100 mL IVPB 20 MEQ/100 ML BAG IV SCH (06:00)
[2018-07-02] MEDS: ARFORMOTEROL TARTRATE 15 MCG/2 ML VIAL.NEB NEB SCH ×2 (07:37→20:33)
[2018-07-02] MEDS: PANTOPRAZOLE 40 MG INJ IVP SCH ×2 (09:56→20:20)
[2018-07-02] MEDS: Levofloxacin500mg IV 500 MG/100 ML BAG IV SCH (13:09)
[2018-07-02] MEDS: NA CHLORIDE 0.9% 1,000 ML IV SCH (15:55)
[2018-07-02] MEDS: MEDIHONEY 44 ML TOPICAL TUBE TOP SCH (16:15)
--- NOTE | 2018-07-02 17:02 | PN ---
Mr. Yu is maintaining sinus rhythm on intravenous metoprolol injections every 4 hours. That seem ed to be controlling his atrial fibrillation fairly well. He is able to take p.o. We will switch hi m to Betapace 80 b.i.d. RADHA/HOLLY Voice ID: [id number] Report ID: [id number]
[2018-07-02] MEDS: AA 5%/D20W/ELECTROLYTES-TPN 2,000 ML, Lipids 20% 250 ML with MULTIVITAMINS INJ 10 ML IV SCH ×3 (18:10)
--- NOTE | 2018-07-02 18:11 | P.PN ---
Subjective Date of Service: 07/02/18 Primary Care Provider: Dr. Cox Chief Complaint: Perforated duodenal ulcer with severe peritonitis Subjective: Improving Physical Examination - Vital Signs Temperature: 99.9 F Blood Pressure: 127/76 Pulse: 98 Respirations: 22 Pulse Ox (%): 93 - Physical Exam General: Alert, In no apparent distress, Oriented x3, Cooperative HEENT: Atraumatic Neck: Supple Respiratory: Clear to auscultation bilaterally, Normal air movement Cardiovascular: Normal pulses, Regular rate/rhythm Gastrointestinal: Hypoactive, Non-distended, No tenderness, No masses, No rebound, No guarding Musculoskeletal: No erythema, No tenderness, No warmth Integumentary: No tenderness/swelling, No erythema, No warmth, No cyanosis Neurological: Normal speech, Normal strength at 5/5 x4 extr, Normal tone, Normal affect - Studies Medications List Reviewed: Yes Assessment & Plan Discharge Plan: Detention Plan to discharge in: Greater than 2 days Physician Review Additional Text: Impression: Sepsis secondary to perforated duodenal ulcer with peritonitis status duodenal closure with omental patch, postop day 6 Acute respiratory failure with likely underlying COPD, improving, complicated with left lower lobe pneumonia Duodenal ulcer disease status post perforation with peritonitis secondary to NSAID use status post repair Hypertension Atrial fibrillation with RVR Malnutrition now on TPN Chronic left lower extremity wound, wound culture positive for Staph aureus and Acinetobacter Plan: Sepsis secondary to perforated duodenal ulcer with peritonitis status duodenal closure with omental patch, postop day 6: Spoke with surgery. Patient will have upper GI series tomorrow to monitor stability of omental patch. If abnormal patient will likely require transfer to higher level of care center for possible surgery. Surgery has spoken to specialist up in [place]. If stable will continue with current TPN and plan for possible skilled placement or long-term acute care facility placement. Will continue monitor closely. Acute respiratory failure with likely underlying COPD, improving, complicated with left lower lobe pneumonia: Continue with IV antibiotic therapy. Patient currently on Levaquin and Zosyn. Patient now on currently stable. Continue to wean off oxygen. Continue COPD medication. Duodenal ulcer disease status post perforation with peritonitis secondary to NSAID use status post repair: Continue as above. Will monitor closely. Hypertension: Continue with medication. Will monitor closely. Atrial fibrillation with RVR: Patient currently stable on metoprolol. Once the patient is able to take oral intake then will transition to Betapace. Patient not on chronic anti coagulation therapy due to history of duodenal ulcer perforation Malnutrition now on TPN: Will continue with TPN. Dietary to monitor and adjust appropriately. Chronic left lower extremity wound, wound culture positive for Staph aureus and Acinetobacter: Continue current wound care. Patient on IV antibiotic therapy. [facility] Time Spent Managing Pts Care (In Minutes): 55
[2018-07-03] MEDS: METOPROLOL TARTRATE 5 MG/5 ML INJ IV SCH ×6 (00:04→18:24)
[2018-07-03] MEDS: PIPER/TAZO/NS 3.375gm 3.375 GM/100 ML BAG IVPB SCH ×3 (00:07→16:26)
[2018-07-03] MEDS: NA CHLORIDE 0.9% 1,000 ML IV SCH (01:26)
[2018-07-03] MEDS: IPRATROPIUM BROM 0.5MG/2.5ML NEB SCH ×4 (02:55→20:00)
[2018-07-03 05:27] LABS: Absolute Lymphocytes (CBC) 1.3 K/uL (0.7-4.9); Absolute Monocytes 2.4 K/uL (0.1-1.3); Basophils % 0.7 % (0-1.3); Eosinophils % 3.4 % (0-4.4); Hematocrit 40.4 % (39.6-49.0); Lymphocytes % 8.5 % (15.3-44.8); MCH 25.7 pg (27.0-35.0); MCV 80.8 fL (80-100); MPV 8.7 fL (7.6-11.3); RBC Red Blood Cell Count 4.99 M/uL (4.33-5.43)
[2018-07-03 05:38] LABS: Monocytes % 15.6 % (3.3-12.3)
[2018-07-03 05:45] LABS: ALT/SGPT 88 U/L (12-78); AST/SGOT 47 U/L (15-37); Albumin 2.3 g/dL (3.4-5.0); Alkaline Phosphatase 96 U/L (45-117); BUN Blood Urea Nitrogen 24 mg/dL (7-18); Bicarbonate 32 mmol/L (21-32); Bilirubin Total 0.6 mg/dL (0.2-1.0); Glucose Level 145 mg/dL (74-106); Potassium 3.9 mmol/L (3.5-5.1); Protein, Total 7.3 g/dL (6.4-8.2); Sodium Level 141 mmol/L (136-145)
[2018-07-03] MEDS: INSULIN -REGULAR HUMAN 50 UNIT/0.5 ML ML SQ SCH ×4 (06:00→18:00)
[2018-07-03] MEDS ORDERED: KCL 20 MEQ/100 mL IVPB 20 MEQ/100 ML BAG IV SCH (06:00)
[2018-07-03] MEDS: MEDIHONEY 44 ML TOPICAL TUBE TOP SCH (10:04)
[2018-07-03] MEDS: PANTOPRAZOLE 40 MG INJ IVP SCH ×2 (10:04→21:13)
[2018-07-03] MEDS: ARFORMOTEROL TARTRATE 15 MCG/2 ML VIAL.NEB NEB SCH ×2 (10:05→20:00)
--- NOTE | 2018-07-03 12:22 | ECHO ---
HEIGHT: 6 ft 0 in WEIGHT: 224 lb 0 oz DATE OF STUDY: 07/02/[address]: 2-DIMENSIONAL: YES M.MODE: YES DOPPLER: YES COLOR FLOW: YES TDS: YES PORTABLE: NO DEFINITY: NO BUBBLE STUDY: NO DIAGNOSIS: ATRIAL FIBRILLATION CARDIAC HISTORY: CATHERIZATION: SURGERY: PROSTHETIC VALVE: PACEMAKER: MEASUREMENTS (cm) DIASTOLIC (NORMALS) SYSTOLIC (NORMALS) IVSd 1.4 (0.6-1.2) LA Diam 4.7 (1.9-4.0) LVEF 69% LVIDd 5.2 (3.5-5.7) LVIDs 3.2 (2.0-3.5) %FS 39% LVPWd 1.5 (0.6-1.2) Ao Diam 3.2 (2.0-3.7) 2 DIMENSIONAL ASSESSMENT: RIGHT ATRIUM: NORMAL LEFT ATRIUM: DILATED RIGHT VENTRICLE: NORMAL LEFT VENTRICLE: DILATED TRICUSPID VALVE: NORMAL MITRAL VALVE: NORMAL PULMONIC VALVE: NORMAL AORTIC VALVE: NORMAL PERICARDIAL EFFUSION: NONE AORTIC ROOT: NORMAL LEFT VENTRICULAR WALL MOTION: NORMAL DOPPLER/COLOR FLOW: NORMAL COMMENTS: MILD LEFT ATRIAL ENLARGEMENT. NORMAL LEFT VENTRICULAR SIZE AND FUNCTION. NO WALL MOTION ABNORMALITY. NO EFFUSION. TECHNOLOGIST: Kimberlee GELLER
[2018-07-03] MEDS: Levofloxacin500mg IV 500 MG/100 ML BAG IV SCH (12:28)
--- NOTE | 2018-07-03 16:38 | P.PN ---
Subjective Date of Service: 07/03/18 Primary Care Provider: Dr. Cox Chief Complaint: Perforated duodenal ulcer with severe peritonitis Subjective: Improving Physical Examination - Vital Signs Temperature: 97.0 F Blood Pressure: 140/69 Pulse: 92 Respirations: 18 Pulse Ox (%): 91 - Physical Exam General: Alert, In no apparent distress, Oriented x3, Cooperative HEENT: Atraumatic Neck: Supple Respiratory: Clear to auscultation bilaterally, Normal air movement Cardiovascular: Normal pulses, Regular rate/rhythm Gastrointestinal: Hypoactive, Non-distended, No tenderness, No masses, No rebound, No guarding Musculoskeletal: No erythema, No tenderness, No warmth Integumentary: No tenderness/swelling, No erythema, No warmth, No cyanosis Neurological: Normal speech, Normal strength at 5/5 x4 extr, Normal tone - Studies Medications List Reviewed: Yes Assessment & Plan Discharge Plan: LTAC Plan to discharge in: 24 Hours Physician Review Additional Text: Impression: Sepsis secondary to perforated duodenal ulcer with peritonitis status duodenal closure with omental patch, postop day 6 Acute respiratory failure with likely underlying COPD, improving, complicated with left lower lobe pneumonia Duodenal ulcer disease status post perforation with peritonitis secondary to NSAID use status post repair Hypertension Atrial fibrillation with RVR Malnutrition now on TPN Chronic left lower extremity wound, wound culture positive for Staph aureus and Acinetobacter Plan: Sepsis secondary to perforated duodenal ulcer with peritonitis status duodenal closure with omental patch, postop day 7: Spoke with surgery this morning. Patient will have CT scan with oral contrast to evaluate omental patch. If stable no need for transfer to higher level of care center for complicated surgery. If abnormal patient will need transfer. In anticipation that CT scan will be normal patient has been accepted to long-term acute care facility. Will discuss further with surgery. Continue with physical therapy. Encourage incentive spirometer. Acute respiratory failure with likely underlying COPD, improving, complicated with left lower lobe pneumonia: Continue with IV antibiotic therapy. Patient currently on Levaquin and Zosyn. Patient now on currently stable. Continue to wean off oxygen. Continue COPD medication. Duodenal ulcer disease status post perforation with peritonitis secondary to NSAID use status post repair: Continue as above. Will monitor closely. Hypertension: Continue with medication. Will monitor closely. Atrial fibrillation with RVR: Patient currently stable on metoprolol. Echocardiogram unremarkable. Once the patient is able to take oral intake then will transition to Betapace. Patient not on chronic anti coagulation therapy due to history of duodenal ulcer perforation Malnutrition now on TPN: Will continue with TPN. Dietary to monitor and adjust appropriately. Chronic left lower extremity wound, wound culture positive for Staph aureus and Acinetobacter: Continue current wound care. Patient on IV antibiotic therapy. [facility]. Time Spent Managing Pts Care (In Minutes): 55
[2018-07-03] MEDS: AA 5%/D20W/ELECTROLYTES-TPN 2,000 ML, Lipids 20% 250 ML with MULTIVITAMINS INJ 10 ML IV SCH ×3 (18:24)
--- NOTE | 2018-07-03 23:34 | PN ---
Admitted to Dr. Varela on 06/25/[address] Ornelas has been following him f or paroxysmal atrial fibrillation. Mr. Yu remained in sinus rhythm. Has been getting IV beta-bl ocker every 4 hours. He is asymptomatic, but has not been able to take p.o. He had good bowel sound s today. He may be able to start p.o. soon. I will leave that up to the surgeon obviously. We will continue his present regimen. Whenever he is able to take p.o. we should switch him to Betapace 80 mg 1 p.o. b.i.d. We will sign off his case for now. BENJIE/HOLLY Voice ID: [id number] Report ID: [id number]
[2018-07-04] MEDS: METOPROLOL TARTRATE 5 MG/5 ML INJ IV SCH ×4 (00:06→11:23)
[2018-07-04] MEDS: PIPER/TAZO/NS 3.375gm 3.375 GM/100 ML BAG IVPB SCH ×2 (01:00→09:45)
[2018-07-04] MEDS: IPRATROPIUM BROM 0.5MG/2.5ML NEB SCH ×2 (01:59→07:40)
[2018-07-04 03:09] VITALS: O2SAT 93
[2018-07-04] MEDS: INSULIN -REGULAR HUMAN 50 UNIT/0.5 ML ML SQ SCH ×3 (06:00→12:00)
[2018-07-04 06:05] LABS: Absolute Lymphocytes (CBC) 1.2 K/uL (0.7-4.9); Absolute Neutrophil 9.4 K/uL (1.8-8.0); Basophils % 0.8 % (0-1.3); Eosinophils % 3.1 % (0-4.4); Lymphocytes % 9.2 % (15.3-44.8); MCH 25.7 pg (27.0-35.0); MCV 80.6 fL (80-100); MPV 8.8 fL (7.6-11.3); Monocytes % 14.9 % (3.3-12.3); RBC Red Blood Cell Count 4.58 M/uL (4.33-5.43)
--- NOTE | 2018-07-04 06:10 | RAD REPORT ---
EXAM DESCRIPTION: CT - Abdomen Pelvis Wo Contrast - 07/03/2018 9:38 pm CLINICAL HISTORY: Abdominal pain duodenal ulcer COMPARISON: June 25, 2018 TECHNIQUE: Computed axial tomography of the abdomen and pelvis was obtained. Oral contrast given. IV contrast not requested which limits evaluation of solid organs and vessels All CT scans are performed using dose optimization technique as appropriate and may include automated exposure control or mA/KV adjustment according to patient size. 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 The liver, spleen, pancreas, adrenals and kidneys appear grossly normal. Left renal cyst unchanged Postsurgical changes of a duodenal ulcer repair are present. Contrast extends from the junction of th e first and second portion of the duodenum along the lateral wall protruding approximately 7 millimet ers to the right. There is no free spill of contrast into the peritoneal cavity. A percutaneous drain is in place. An abscess is not noted. Significant free air not seen. Sadler catheter is present within the bladder. Large right inguinal hernia contains bowel. There is no evidence of diverticulitis. Left lower lobe atelectasis with small pleural effusions IMPRESSION: Contrast protrudes approximately 7 millimeters from the lateral aspect of the proximal d uodenum. It is unclear whether this represents the normal postoperative appearance of the repair of t he duodenal ulcer with patch or indicates a small area of contained extravasation. Follow-up CT scan with oral contrast would be helpful to reassess the duodenum. An abscess is not noted. There is no extravasation of contrast into the peritoneal cavity
[2018-07-04 06:16] LABS: ALT/SGPT 115 U/L (12-78); AST/SGOT 61 U/L (15-37); Albumin 2.1 g/dL (3.4-5.0); Alkaline Phosphatase 105 U/L (45-117); BUN Blood Urea Nitrogen 22 mg/dL (7-18); Bicarbonate 31 mmol/L (21-32); Bilirubin Total 0.5 mg/dL (0.2-1.0); Glucose Level 134 mg/dL (74-106); Potassium 3.8 mmol/L (3.5-5.1); Protein, Total 6.8 g/dL (6.4-8.2); Sodium Level 139 mmol/L (136-145)
[2018-07-04] MEDS: ARFORMOTEROL TARTRATE 15 MCG/2 ML VIAL.NEB NEB SCH (07:40)
[2018-07-04] MEDS: PANTOPRAZOLE 40 MG INJ IVP SCH (09:45)
[2018-07-04] MEDS: KCL 20 MEQ/100 mL IVPB 20 MEQ/100 ML BAG IV SCH ×2 (09:45→11:00)
[2018-07-04] MEDS: MEDIHONEY 44 ML TOPICAL TUBE TOP SCH (09:46)
[2018-07-04] MEDS: NA CHLORIDE 0.9% 1,000 ML IV SCH (09:51)
--- NOTE | 2018-07-04 11:07 | P.DS ---
Admission Date: 06/25/18 Discharge Date: 07/04/18 Primary Care Provider: Dr. Cox Disposition[facility] Discharge Condition: GOOD Reason for Admission: Perforated duodenal ulcer with severe peritonitis Consultations: Surgery-Dr. Ceballos Pulmonary-Dr. Garcia Cardiology-Dr. Ornelas Procedures: CT scan: COMPARISON: No comparisons TECHNIQUE: Biphasic CT imaging of the abdomen and pelvis was performed with 100 ml non-ionic IV contrast. All CT scans are performed using dose optimization technique as appropriate and may include automated exposure control or mA/KV adjustment according to patient size. FINDINGS: The lung bases are clear. A crescent of high density fluid is seen along the liver edge measuring 2.5 cm likely related to blood. Small amount of free air is present within the peritoneal cavity. Oral contrast is seen leaking from the proximal duodenum to layer in the right upper quadrant adjacent to the gallbladder fossa. There is irregular soft tissue thickening involving the proximal duodenum with surrounding inflammatory changes suspicious for perforated duodenal ulcer. The spleen, pancreas, adrenal glands and kidneys are within normal limits. A benign left renal cyst is seen. A very large right inguinal hernia is present containing small bowel loops without evidence of incarceration. The appendix is normal. No evidence of significant lymphadenopathy. No suspicious bony findings. IMPRESSION: Perforated duodenal ulcer is suspected with intraperitoneal contrast, air and blood present. Repeat CT scan post op: COMPARISON: June 25, 2018 TECHNIQUE: Computed axial tomography of the abdomen and pelvis was obtained. Oral contrast given. IV contrast not requested which limits evaluation of solid organs and vessels All CT scans are performed using dose optimization technique as appropriate and may include automated exposure control or mA/KV adjustment according to patient size. 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 The liver, spleen, pancreas, adrenals and kidneys appear grossly normal. Left renal cyst unchanged Postsurgical changes of a duodenal ulcer repair are present. Contrast extends from the junction of the first and second portion of the duodenum along the lateral wall protruding approximately 7 millimeters to the right. There is no free spill of contrast into the peritoneal cavity. A percutaneous drain is in place. An abscess is not noted. Significant free air not seen. Sadler catheter is present within the bladder. Large right inguinal hernia contains bowel. There is no evidence of diverticulitis. Left lower lobe atelectasis with small pleural effusions IMPRESSION: Contrast protrudes approximately 7 millimeters from the lateral aspect of the proximal duodenum. It is unclear whether this represents the normal postoperative appearance of the repair of the duodenal ulcer with patch or indicates a small area of contained extravasation. Follow-up CT scan with oral contrast would be helpful to reassess the duodenum. An abscess is not noted. There is no extravasation of contrast into the peritoneal cavity ECHO: Ejection fraction 69% LEFT VENTRICULAR WALL MOTION: NORMAL DOPPLER/COLOR FLOW: NORMAL COMMENTS: MILD LEFT ATRIAL ENLARGEMENT. NORMAL LEFT VENTRICULAR SIZE AND FUNCTION. NO WALL MOTION ABNORMALITY. NO EFFUSION. Surgery: Date 06/25/2018 Preoperative diagnosis: Peritonitis, perforated duodenum, hemo peritoneum, pneumoperitoneum Postoperative diagnosis: Same Primary procedure: Emergent exploratory laparotomy Secondary procedure: Closure of duodenal perforation Other procedure: Omental patch Estimated blood loss: Less than 100 cc Findings: Proximal superior duodenum with peritonitis Complication: None Drains: JUANI drain x2 Medical Problem List: Sepsis secondary to perforated duodenal ulcer with peritonitis, hemo peritoneum and pneumoperitoneum status duodenal closure with omental patch, postop day 8 Acute respiratory failure with likely underlying COPD, improved, complicated with left lower lobe pneumonia and small pleural effusions Duodenal ulcer disease status post perforation with peritonitis secondary to NSAID use status post repair GERD Hypertension Atrial fibrillation with RVR now normal sinus rhythm Malnutrition now on TPN Chronic left lower extremity wound, wound culture positive for Staph aureus and Acinetobacter Brief History of Present Illness: 57-year-old male presented to the emergency room with severe abdominal pain. Pain had been present for over several weeks but got worse the day of admission. CT scan revealed perforated duodenum. Patient was evaluated by surgery and taken to the operating room for repair. Hospital Course: Patient presented with sepsis secondary to perforated duodenal ulcer with peritonitis, hemo peritoneum and pneumoperitoneum. Patient was immediately seen by surgery. Surgery recommended intervention. Surgery was performed. Duodenal closure with omental patch was done. Patient tolerated the procedure well. 2 JUANI drains were placed. The patient was sent to the ICU intubated. The patient was seen by pulmonology. He was eventually extubated. During the course of his stay he also developed atrial fibrillation with RVR. Patient seen and evaluated by Cardiology. The patient was stabilized and eventually moved to the floor. Patient has remained stable. Patient evaluated for long- term acute care facility placement. Patient has been accepted. Repeat CT scan shows normal postoperative appearance of the repair of the duodenum ulcer with patch. Case discussed at length with surgery and radiology. No extravasation of contrast into the peritoneal cavity was identified. Radiology recommends to repeat CT scan with oral contrast prior to starting oral intake after 1 week. Patient currently on IV Levaquin 500 mg IV daily and Zosyn 3.325 mg every 8 hr IV. Patient will be transferred to long-term acute care facility to continue his care. Patient currently on TPN. Patient will continue with TPN for at least 1 week as recommended by surgery. Pain seems to be well controlled. He is ambulating well. Patient had acute respiratory failure likely with underlying COPD. Patient now with left lower lobe pneumonia and small pleural effusions. Patient currently stable this time. Continue with oxygen to maintain sats above 90%. Patient will continue with Levaquin and Zosyn at this time. Patient will also continue with COPD medication including Brovana 1 unit dose twice daily and Atrovent/ albuterol 1 unit dose 3 times a day as needed for shortness of breath. Patient will continue with incentive spirometer. As mentioned above patient had atrial fibrillation with RVR. Patient was evaluated by cardiology. No further intervention was required. Echocardiogram unremarkable. Patient currently remains on scheduled doses of metoprolol 7.5 mg IV every 4 hr. Once the patient is able to take in oral intake and then medication can be transition to Betapace. Chronic anti coagulation therapy is not recommended due to duodenal ulcer perforation. Patient continues with medication for hypertension. This can be further monitored and adjusted at the long-term acute care facility. Patient with malnutrition post operatively. Patient currently on TPN. Patient will continue with TPN for at least 1 week. Patient can be transition to oral intake after 1 week at the long-term care facility. Patient with GERD. Patient reports history of using NSAIDs for pain on no further use of nonsteroidal anti-inflammatories. Patient will need continue with Protonix 40 mg IV twice daily. Patient has chronic left lower extremity wound. Previous wound culture positive for Staph aureus and Acinetobacter. Patient currently on IV antibiotic therapy. Patient will continue with IV antibiotic therapy-Levaquin and Zosyn. Patient will continue with wound care. [facility] Patient continues with fentanyl as needed for pain. Vital Signs/Physical Exam: Temp Pulse Resp BP Pulse Ox 98.8 F 81 20 110/61 94 07/04/18 08:00 07/04/18 08:00 07/04/18 08:00 07/04/18 08:00 07/04/18 08:00 General: Alert, In no apparent distress, Oriented x3, Cooperative HEENT: Atraumatic Neck: Supple Respiratory: Clear to auscultation bilaterally, Normal air movement Cardiovascular: Normal pulses, Regular rate/rhythm Gastrointestinal: Normal bowel sounds, Soft and benign, Non-distended, No tenderness, No masses, No rebound, No guarding Musculoskeletal: No erythema, No tenderness, No warmth Integumentary: No tenderness/swelling, No erythema, No warmth, No cyanosis Neurological: Normal speech, Normal strength at 5/5 x4 extr, Normal tone, Normal affect Lymphatics: No axilla or inguinal lymphadenopathy Laboratory Data at Discharge: WBC 13.1 K/uL (4.3-10.9) H D 07/04/18 05:20 Hgb 11.8 g/dL (13.6-17.9) L 07/04/18 05:20 Hct 37.0 % (39.6-49.0) L 07/04/18 05:20 Plt Count 278 K/uL (152-406) 07/04/18 05:20 PT 13.2 SECONDS (9.5-12.5) H 06/28/18 05:22 INR 1.12 06/28/18 05:22 APTT 25.7 SECONDS (24.3-36.9) 06/28/18 05:22 Sodium 139 mmol/L (136-145) 07/04/18 05:20 Potassium 3.8 mmol/L (3.5-5.1) 07/04/18 05:20 BUN 22 mg/dL (7-18) H 07/04/18 05:20 Creatinine 0.60 mg/dL (0.55-1.3) 07/04/18 05:20 Glucose 134 mg/dL (74-106) H 07/04/18 05:20 Phosphorus 3.2 mg/dL (2.5-4.9) 06/30/18 05:05 Magnesium 2.0 mg/dL (1.8-2.4) 07/04/18 05:20 Total Bilirubin 0.5 mg/dL (0.2-1.0) 07/04/18 05:20 AST 61 U/L (15-37) H 07/04/18 05:20 ALT 115 U/L (12-78) H 07/04/18 05:20 Alkaline Phosphatase 105 U/L (45-117) 07/04/18 05:20 Triglycerides 91 mg/dL (<150) 06/29/18 05:00 Lipase 58 U/L (73-393) L 06/25/18 07:30 Home Medications: Ibuprofen [Advil] 100 mg PO Q4H 06/25/18 Patient Discharge Instructions: 1. Patient be transferred to LTAC when ready. 2. Patient presented with sepsis secondary to perforated duodenal ulcer with peritonitis, hemo peritoneum and pneumoperitoneum. Patient was immediately seen by surgery. Surgery recommended intervention. Surgery was performed. Duodenal closure with omental patch was done. Patient tolerated the procedure well. 2 JUANI drains were placed. The patient was sent to the ICU intubated. The patient was seen by pulmonology. He was eventually extubated. During the course of his stay he also developed atrial fibrillation with RVR. Patient seen and evaluated by Cardiology. The patient was stabilized and eventually moved to the floor. Patient has remained stable. Patient evaluated for long- term acute care facility placement. Patient has been accepted. Repeat CT scan shows normal postoperative appearance of the repair of the duodenum ulcer with patch. Case discussed at length with surgery and radiology. No extravasation of contrast into the peritoneal cavity was identified. Radiology recommends to repeat CT scan with oral contrast prior to starting oral intake after 1 week. Patient currently on IV Levaquin 500 mg IV daily and Zosyn 3.325 mg every 8 hr IV. Patient will be transferred to long-term acute care facility to continue his care. Patient currently on TPN. Patient will continue with TPN for at least 1 week as recommended by surgery. Pain seems to be well controlled. He is ambulating well. 3. Patient had acute respiratory failure likely with underlying COPD. Patient now with left lower lobe pneumonia and small pleural effusions. Patient currently stable this time. Continue with oxygen to maintain sats above 90%. Patient will continue with Levaquin and Zosyn at this time. Patient will also continue with COPD medication including Brovana 1 unit dose twice daily and Atrovent/albuterol 1 unit dose 3 times a day as needed for shortness of breath. Patient will continue with incentive spirometer. 4. As mentioned above patient had atrial fibrillation with RVR. Patient was evaluated by cardiology. No further intervention was required. Echocardiogram unremarkable. Patient currently remains on scheduled doses of metoprolol 7.5 mg IV every 4 hr. Once the patient is able to take in oral intake and then medication can be transition to Betapace. Chronic anti coagulation therapy is not recommended due to duodenal ulcer perforation. 5. Patient continues with medication for hypertension. This can be further monitored and adjusted at the long-term acute care facility. 6. Patient with malnutrition post operatively. Patient currently on TPN. Patient will continue with TPN for at least 1 week. Patient can be transition to oral intake after 1 week at the long-term care facility. 7. Patient with GERD. Patient reports history of using NSAIDs for pain on no further use of nonsteroidal anti-inflammatories. Patient will need continue with Protonix 40 mg IV twice daily. 8. Patient has chronic left lower extremity wound. Previous wound culture positive for Staph aureus and Acinetobacter. Patient currently on IV antibiotic therapy. Patient will continue with IV antibiotic therapy-Levaquin and Zosyn. Patient will continue with wound care. Patient [facility]. 9. Patient continues with fentanyl as needed for pain. Diet: NPO Activity: No lifting more than 10 lbs Time spent managing pt's care (in minutes): 55
[2018-07-04] MEDS: Levofloxacin500mg IV 500 MG/100 ML BAG IV SCH (12:19)
[2018-07-04 12:42] VITALS: BP 112/64; TEMP 98.2
--- NOTE | 2018-07-04 19:55 | PN ---
Diagnoses: History of a peritonitis, pneumoperitoneum, but duodenal ulcer with emergent laparotomy a nd the omental patch. Objective: General: The patient has been doing well. Still have bowel rest. Afebrile. Chest: Clear. Abdomen: Soft and depressible. Intact surgical site. JUANI drained. Do have 2 of them 1 in the duode num another 1 near the gastric area. Both of them have just clear fluid, with no bile discharge. Laboratory Data: CAT scan of abdomen and pelvis reviewed last night with Dr. Mendez today was revie wed again with Dr. Barber. When we gave the contrast, we did not see any contrast coming through th e JUANI drain which is exactly over the repair, and also when I discussed this with Dr. Mendez, we see still the indentation of ulcer in the duodenum, but we did not see any leakage out of the area. The patch is still holding that area, but the ulcer might not be completely healed yet, once again we munira l inspect that soon anyway. Assessment/plan: So, we suggested a CT scan to be repeated in about a week from now to give better a ssessment of the area. For that reason, we are going to keep the bowel rest TPN once we are going to send him to an LTAC in a week from now. We may once again do an upper GI or CAT scan with p.o. cont rast that will let us know if he is ready to have some food intake and then proceed accordingly. He was advised when he just finished with LTAC, to please come back to our office, this is not over yet, we still have to arrange for him to have eventually electively one would see he is safe several week s from now. An upper endoscopy to rule out any other ulcers or if this ulcers present, and if it sti ll present, a biopsy should be done to rule out any neoplasia. He understands the importance of that . Also was counseled about the importance of stopping smoking and also to stop alcohol intake and stop the anti-inflammatories p.o. that he used to take. He understands that. PEDRO/HOLLY Voice ID: [id number] Report ID: [id number]
--- NOTE | 2018-07-05 02:08 | OP ---
Date of Procedure: 06/25/2018 Surgeon: Per Ceballos MD Disposal Man: Lorraine Farr. Preoperative Diagnoses: Peritonitis, perforated duodenal ulcer, hemoperitoneum, and pneumoperitoneum . Postoperative Diagnoses: Peritonitis, perforated duodenal ulcer, hemoperitoneum, and pneumoperitoneu m. Procedures: 1.Emergent exploratory laparotomy. 2.Closure of duodenal perforation. 3.Omental patch. Estimated Blood Loss: Less than 100 cc. Findings: Proximal duodenum superior ulcer with peritonitis. Anesthesia: General. Drains: JUANI #10. Indications: This is the case who came emergently to the OR with acute abdominal pain, although he h as been having this discomfort for several weeks. At this time when he did a CAT scan, they found hi martin to have a perforated viscus. Specifically the believe this is coming from a perforated duodenum. The patient at this moment has peritonitis. So, he was booked emergently for a laparotomy, possible bowel resection, with benefits, alternatives, and risks including, but not limited to infection, blee ding, damage to adjacent structures as complication, abscess, VT, and even . He also understand s this may not relieve any symptoms, he might need more than one surgical intervention. He understoo d, signed a consent. The patient understand he may need a definitive surgery in the future depends o n the side of perforation and the size of it. He understood and signed a consent. Description Of Procedure: The patient was brought to the operating room, placed in supine position. Anesthesia was done without complication. A midline incision was made in the abdomen after time-out was called. A large quantity of bilious a and a gastric content in the epigastric region. There we re some adhesions of omentum to the liver itself that needed to be excised for us to be able to have visualization over the area. There was GI content present in that area too, probably just from recen t meals. So, we irrigated the area profusely. The stomach and duodenum were inspected and palpated. Perforation was noticed in the area of the duodenum about 12 o'clock position, superior position, p roximal duodenum. Retraction of the rest of the area was carefully done. There was so much inflamma tion that it was hard for us to see the ulcer in situ to do biopsy, so we have to close the outside a nd then biopsy going to have to be done through the endoscopy since its size and now that if we keep removing tissue from that area, we may not be able to complete surgery. So, at that moment, I procee ded to irrigate the area profusely, identified edges are viable, and proceeded to do a [id number] t with silk and approximate the duodenal edges, making sure the common bile duct was protected at all times and making sure we do not go into the posterior wall. No bleeding. No more leakage was seen. NG tube was placed under direct manipulation into the stomach area. After that, I proceeded to дмитрий ce an omental patch. There was previous tissue we have in that area. We used it to help us secure t he omental patch right over the incision and tied over that area. The omental area also was secured in place using silk. The area was profusely irrigated. We made sure we irrigated the area, but not cause any pull or any tension of the omentum. Hemostasis was checked. The fascia was approximated w ith a #2 nylon, irrigated the subcutaneous tissue, and then closed the skin with bernard. NG tube wa s secured in place. The patient sent in the critical condition to the ICU. Sponge count and instrum ent counts were correct. After the end of the case, I discussed the case with Dr. Juvenal Minaya and explained to him the location of the duodenal perforation in case some other duodenal resection need s to be done. He is better equipped to do that. He will ask me to keep the patient on observation h ere right now since we put the patch and he would have done the same thing. If he in the next 48 bonnie rs does not improve, then he will take the patient as a transfer; otherwise, he will take the patient electively when he gets discharged home and this area healed, and the endoscopy is done eventfully. We are going to try to keep the patient and that area in rest about 1 or 2 weeks at [facility]. PEDRO/HOLLY Voice ID: [id number] Report ID: [id number]
== END 2018-07-04 16:00 | DRG 853 ==
LOC: ER 06:49 → OR 10:35 → 3RD-ICU 13:39 → 4TH 07-01 22:40
PROVIDERS: ADMIT Family Medicine; ATTEND Family Medicine
PROC: 0D9670Z Drainage of Stomach with Drainage Device, Via Natural or Artificial Opening (ICD-10-PCS; 2018-06-25)
PROC: 5A1945Z Respiratory Ventilation, 24-96 Consecutive Hours (ICD-10-PCS; 2018-06-25)
PROC: 0BH17EZ Insertion of Endotracheal Airway into Trachea, Via Natural or Artificial Opening (ICD-10-PCS; 2018-06-25)
PROC: 02HV33Z Insertion of Infusion Device into Superior Vena Cava, Percutaneous Approach (ICD-10-PCS; 2018-06-25)
PROC: 0DU907Z Supplement Duodenum with Autologous Tissue Substitute, Open Approach (ICD-10-PCS; principal; 2018-06-25 12:45)
DX: A41.9 Sepsis, unspecified organism (principal); K26.6 Chronic or unspecified duodenal ulcer with both hemorrhage and perforation; K65.9 Peritonitis, unspecified; J18.1 Lobar pneumonia, unspecified organism; J96.02 Acute respiratory failure with hypercapnia; K66.1 Hemoperitoneum; J90 Pleural effusion, not elsewhere classified; I87.312 Chronic venous hypertension (idiopathic) with ulcer of left lower extremity; E44.1 Mild protein-calorie malnutrition; Z68.30 Body mass index [BMI] 30.0-30.9, adult; D64.9 Anemia, unspecified; J44.9 Chronic obstructive pulmonary disease, unspecified; F17.210 Nicotine dependence, cigarettes, uncomplicated; K21.9 Gastro-esophageal reflux disease without esophagitis; I48.91 Unspecified atrial fibrillation; B95.61 Methicillin susceptible Staphylococcus aureus infection as the cause of diseases classified elsewhere; B96.89 Other specified bacterial agents as the cause of diseases classified elsewhere; I10 Essential (primary) hypertension; I95.9 Hypotension, unspecified; E88.09 Other disorders of plasma-protein metabolism, not elsewhere classified
CPT/HCPCS: 36415; 71045; 74176; 74177; 80048; 80053; 80076; 81001; 82805; 82962; 83605; 83690; 83735; 83880; 84100; 84134; 84478; 84484; 85025; 85610; 85730; 86850; 86900; 86901; 87040; 87070; 87077; 87086; 87088; 87186; 87205; 93005; 93306; 94002; 94640; 96361; 96365; 96367; 96375; 97163; 99285; C9113; J0330; J0360; J0744; J1335; J2250; J2354; J2370; J2405; J2543; J2704; J3010; J3475; J7030; J7060; J7605; P9047; Q9967

== ENCOUNTER 2018-12-13 09:51 | Inpatient (IN) | payer OTHER ==
[2018-12-13] MEDS ORDERED: AMPICILLIN/SULBACT 3 GM in NA CHLORIDE 0.9% 100 ML IVPB SCH (12:00)
[2018-12-13] MEDS: PIPER/TAZO/NS 3.375gm 3.375 GM/100 ML BAG IVPB SCH ×2 (12:10→17:31)
[2018-12-13 12:18] LABS: Absolute Lymphocytes (CBC) 1.5 K/uL (0.7-4.9); Absolute Monocytes 2.2 K/uL (0.1-1.3); Absolute Neutrophil 10.4 K/uL (1.8-8.0); Basophils % 0.6 % (0-1.3); Eosinophils % 0.9 % (0-4.4); Hematocrit 54.3 % (39.6-49.0); Lymphocytes % 10.3 % (15.3-44.8); MPV 8.7 fL (7.6-11.3); Monocytes % 15.3 % (3.3-12.3); RBC Red Blood Cell Count 6.54 M/uL (4.33-5.43)
[2018-12-13 12:27] LABS: Urine Appearance CLEAR; Urine Bilirubin NEGATIVE (NEG); Urine Blood 1+ (NEG); Urine Color YELLOW; Urine Glucose NEGATIVE (NEG); Urine Protein 1+ (NEG); Urine Specific Gravity <=1.005 (1.005-1.030); Urine Urobilinogen 0.2 mg/dL (0.2-1.0)
[2018-12-13 12:45] LABS: ALT/SGPT 31 U/L (12-78); AST/SGOT 14 U/L (15-37); Albumin 3.5 g/dL (3.4-5.0); Alkaline Phosphatase 77 U/L (45-117); BUN Blood Urea Nitrogen 12 mg/dL (7-18); Bicarbonate 30 mmol/L (21-32); Glucose Level 88 mg/dL (74-106); Magnesium 1.6 mg/dL (1.8-2.4); Potassium 3.8 mmol/L (3.5-5.1); Protein, Total 7.9 g/dL (6.4-8.2); Sodium Level 136 mmol/L (136-145)
[2018-12-13 12:59] LABS: Anisocytosis 2+; Blood Morphology Comment NOTED (NOT SEEN); Platelet Estimate ADEQ
--- NOTE | 2018-12-13 13:16 | RAD REPORT ---
EXAM DESCRIPTION: RAD - Hand Right 3 View - 12/13/2018 12:42 pm CLINICAL HISTORY: cellulitis R hand COMPARISON: No comparisons FINDINGS: Moderate soft tissue swelling is seen along the dorsum of the hand. No osteomyelitis or fr acture seen. Tiny radiopaque foreign body is seen at the base of the second finger along the dorsal s oft tissues.
[2018-12-13 13:34] LABS: Urine Bacteria <20 /HPF (NONE SEEN); Urine RBC <5 /HPF (NONE SEEN)
[2018-12-13 13:35] LABS: Urine Culture Reflex Order NOT NEEDED
[2018-12-13 13:47] LABS: Rheumatoid Factor NEG (NEG)
[2018-12-13] MEDS ORDERED: POTASSIUM CL SA 10 MEQ TAB PO ONE (21:00)
[2018-12-13] MEDS: LEVOTHYROXINE SOD 0.025 MG TAB PO SCH (21:00)
[2018-12-13] MEDS: METOPROLOL TAR 25 MG TAB PO SCH (21:00)
[2018-12-14] MEDS: PIPER/TAZO/NS 3.375gm 3.375 GM/100 ML BAG IVPB SCH ×3 (00:47→16:40)
--- NOTE | 2018-12-14 05:08 | HP ---
Date of Admission: 12/13/2018 Chief Complaint: Pain, swelling of right hand. History Of Present Illness: A 57-year-old male patient. He was in his normal usual state of health until yesterday he started to have pain, swelling and significant limitation of range of motion of right hand. Denies any trauma. No fall. No injury. There is no open wound on the hand. He came in to see me this morning with these complaints. After he was evaluated, he was admitted to the hospital. He has significant restriction of his range of motion and it is painful. Allergies: NO KNOWN ALLERGIES. Medications: Breo Ellipta 1 puff daily, bupropion 75 mg p.o. daily, iron 325 mg p.o. daily, metoprolol 25 mg takes 2 tablets in the morning and 1 tablet in the evening, pantoprazole 40 mg p.o. daily, levothyroxine 25 mcg p.o. daily. Review of Systems: Musculoskeletal: As mentioned above. Dermatology: As mentioned above. All other systems reviewed and negative. Past Medical History: Significant for hypertension, paroxysmal atrial fibrillation, hypothyroidism, COPD, iron deficiency anemia, polyarthralgia, gastroesophageal reflux disease. Past Surgical History: Exploratory laparotomy in June 2018 and hernia repair. Family History: Coronary artery disease and unknown type of cancer. Social History: Positive for smoking. Use of alcohol, occasional. Physical Examination: Vital Signs: Upon admission height 6 feet 1 inch, weight 227 pounds, temperature 98.6, pulse 83, respiratory rate 16, blood pressure 138/72, oxygen saturation 91%. General: Awake, alert, oriented, not in distress. HEENT: Head atraumatic, normocephalic. Conjunctivae nonerythematous. Sclerae white. Mouth, no thrush or edema noted. Ears/Nose, no mass, lesion, discharge noted. Neck: Supple. No JVD, lymph nodes, bruit, thyromegaly noted. Lungs: Bilateral good equal air entry. Clear to auscultation. No rhonchi. No rales. Heart: Normal heart sounds, no murmur or gallop. Abdomen: Soft, bowel sounds normal. No guarding, rigidity, tenderness, mass, hepatosplenomegaly, distention, or bruit noted. Extremities: Right upper extremity has moderate swelling of right dorsum hand and distal forearm. The patient has pink, warm discoloration of the dorsum hand and distal forearm. Flexion of right hand fingers is limited. Range of motion of right hand is painful. There is no open wound. No evidence of any pus collection anywhere. Radial pulse is normal. Leg examination, the patient has dressing present as per [facility]. He goes there regularly. Skin: No rash, ulcer, cellulitis. Lymphatics: No lymph node enlargement in neck, supraclavicular, infraclavicular region. Neuro: No focal neurological deficit. Chest: Unremarkable. External Genitalia: Deferred. Rectal: Deferred. Laboratory Data: White count 14.2, hemoglobin 17.3, platelets 205. Sodium 136 , potassium 3.8, chloride 101, bicarb 30, BUN 12, creatinine 0.69, glucose 88. Liver function tests unremarkable. Procalcitonin 0.10. TSH 4.5. Urinalysis negative except 1+ blood. Rheumatoid factor negative. X-ray of the right hand : No fracture and tiny radiopaque foreign body at the base of second finger. Impression: 1. Cellulitis, right upper extremity. 2. Hypertension. 3. Chronic obstructive pulmonary disease. 4. Gastroesophageal reflux disease. 5. Paroxysmal atrial fibrillation. 6. Hypothyroidism. 7. Iron deficiency anemia. Plan: Admit patient to hospital for further evaluation and management of this problem. The patient is appropriate for inpatient and is expected to spend 2 midnights in hospital. We will go ahead and start the patient on IV antibiotic which is Zosyn. Blood culture was done. We will follow up on that result. Home medications will be continued per order. DVT prophylaxis will be given per order. We will see him tomorrow morning for followup. Details and plan of treatment discussed with him. Wound care dressing changes will be provided to leg as per order from Wound Care. REJI/MODL Voice ID: [id number]
[2018-12-14 06:26] LABS: BUN Blood Urea Nitrogen 17 mg/dL (7-18); Bicarbonate 32 mmol/L (21-32); Glucose Level 105 mg/dL (74-106); Magnesium 1.7 mg/dL (1.8-2.4); Potassium 3.8 mmol/L (3.5-5.1); Sodium Level 140 mmol/L (136-145)
[2018-12-14] MEDS ORDERED: MAGNESIUM SULFATE 1 gm IVPB 1 GM/100 ML BAG IV ONE (06:36)
[2018-12-14] MEDS ORDERED: POTASSIUM 25 MEQ EFFERV TAB PO ONE (06:37)
[2018-12-14] MEDS ORDERED: ACETAMINOPHEN 500 MG TAB PO PRN (07:51)
[2018-12-14] MEDS ORDERED: IRON CARBONYL 65 MG PO SCH (09:00)
[2018-12-14] MEDS: METOPROLOL TAR 25 MG TAB PO SCH ×2 (09:09→20:29)
[2018-12-14] MEDS: PANTOPRAZOLE 40MG TABLET PO SCH (09:09)
--- NOTE | 2018-12-14 09:57 | RAD REPORT ---
EXAM DESCRIPTION: RAD - Chest Pa And Lat (2 Views) - 12/14/2018 9:47 am CLINICAL HISTORY: COPD Chest pain. COMPARISON: Chest Single View dated 06/30/2018; Chest Single View dated 06/28/2018; Chest Single Vie w dated 06/27/2018; Chest Single View dated 06/26/2018 FINDINGS: Emphysematous changes are present throughout the lungs. Moderate areas of poorly defined l eft basilar lung opacities are seen suspicious for aspiration/ developing pneumonia. The heart is mil dly enlarged in size. No displaced fractures. IMPRESSION: Developing left lower lobe pneumonia.
[2018-12-14] MEDS: ENOXAPARIN 40 MG/0.4 ML SQ SCH (10:14)
[2018-12-14] MEDS ORDERED: ONDANSETRON 4 MG/2 ML VIAL IV PRN (15:24)
--- NOTE | 2018-12-14 16:00 | RAD REPORT ---
EXAM DESCRIPTION: CT - Thorax Wo Con - 12/14/2018 3:50 pm CLINICAL HISTORY: COPD, shortness of breath, abnormal chest film COMPARISON: Chest exam December 14, 2018 TECHNIQUE: Axial 5 mm thick images of the chest were obtained without IV contrast. All CT scans are performed using dose optimization technique as appropriate and may include automated exposure control or mA/KV adjustment according to patient size. FINDINGS: Approximately 5 x 5 centimeter area of airspace opacification is present in the base of th e lingula left upper lobe. Air bronchograms present. Pneumonia is the most likely etiology. This coul d be infectious or aspiration 1 in the lingula. There is a less pronounced interstitial and alveolar opacification in the left base abutting the slightly elevated left hemidiaphragm. This could be atele ctasis or an additional site of pneumonia. Medial lung base finding is considered suspicious for dangelo gnancy. Findings are much more favorable for pneumonia. Findings can be monitored with subsequent anca ging to confirm full resolution. Mid and upper left lung field clear of an acute process. There are e mphysematous changes in both lung willard. No suspicious mass or infiltrate of the right lung parenchy ma. Calcified granuloma seen lower right lung field. No pleural thickening or pleural effusion. No pn eumothorax. No abnormal mediastinal or hilar masses or lymphadenopathy seen. A few small nonspecific lymph nodes are seen. No gross aortic or pulmonary artery finding suspected. Assessment is limited in the absenc e of IV contrast. No chest wall mass or abnormal axillary lymphadenopathy. IMPRESSION: 5 centimeter area of airspace opacification with air bronchogram in the base of the ling maurice. Finding is much more favorable for pneumonia then lung mass. Findings can be monitored on a subs equent imaging to assure resolution. Left lower lobe patchy opacification abutting the slightly elevated left hemidiaphragm. This could be atelectasis or infiltrate. Left lower lobe mass lesion not suspected.
--- NOTE | 2018-12-14 17:45 | PN ---
Date of Progress Note: 12/14/2018 Subjective: The patient was seen this morning for followup. He is ambulating well. Noted in the ro om that he was walking on his own. Denied any complaints except pain and swelling of the right hand, which is a little better today than yesterday. Objective: Vital Signs: Reviewed. HEENT: Unremarkable. Lungs: Clear to auscultation. Heart: Sounds normal. Abdomen: Soft. Bowel sounds normal. No guarding, rigidity, tenderness, distention. Extremities: Right upper extremity swelling of right dorsum hand and distal forearm with some pink, warm, tender skin, is slightly better today than yesterday. Range of motion of right hand in terms o f flexion of finger is better today compared to yesterday. Impression: 1.Cellulitis, right upper extremity. 2.Hypertension. 3.Chronic obstructive pulmonary disease. Plan: We will continue current medications. Continue current antibiotics, Zosyn. Blood culture res ult is pending. The patient was advised to keep his right upper extremity elevated and I will see hi m tomorrow for followup. We will repeat blood work tomorrow morning. REJI/MODL Voice ID: [id number] Report ID: [id number]
[2018-12-14] MEDS: LEVOTHYROXINE SOD 0.025 MG TAB PO SCH (20:30)
[2018-12-14] MEDS: MORPHINE 2 MG/ML SYR IV PRN (23:18)
[2018-12-15] MEDS: PIPER/TAZO/NS 3.375gm 3.375 GM/100 ML BAG IVPB SCH ×3 (00:09→16:35)
[2018-12-15 06:08] LABS: Absolute Lymphocytes (CBC) 1.1 K/uL (0.7-4.9); Absolute Neutrophil 9.2 K/uL (1.8-8.0); Basophils % 0.9 % (0-1.3); Eosinophils % 2.1 % (0-4.4); Hematocrit 50.4 % (39.6-49.0); Lymphocytes % 8.5 % (15.3-44.8); MPV 8.8 fL (7.6-11.3); Monocytes % 15.7 % (3.3-12.3); RBC Red Blood Cell Count 5.96 M/uL (4.33-5.43)
[2018-12-15 06:19] LABS: BUN Blood Urea Nitrogen 21 mg/dL (7-18); Bicarbonate 33 mmol/L (21-32); Glucose Level 112 mg/dL (74-106); Magnesium 1.9 mg/dL (1.8-2.4); Potassium 4.1 mmol/L (3.5-5.1); Sodium Level 140 mmol/L (136-145)
[2018-12-15 08:46] LABS: Platelet Estimate ADEQ
[2018-12-15 08:47] LABS: Anisocytosis 2+; Blood Morphology Comment NOTED (NOT SEEN)
[2018-12-15] MEDS: ENOXAPARIN 40 MG/0.4 ML SQ SCH (08:53)
[2018-12-15] MEDS: PANTOPRAZOLE 40MG TABLET PO SCH (08:54)
[2018-12-15] MEDS: METOPROLOL TAR 25 MG TAB PO SCH ×2 (08:54→21:28)
[2018-12-15] MEDS: MORPHINE 2 MG/ML SYR IV PRN ×3 (09:08→22:15)
--- NOTE | 2018-12-15 13:25 | PN ---
Date of Progress Note: 12/15/2018 The patient was seen this morning for followup. He was sitting in the chair. Denied any new complai nts. His pain and swelling from right hand and forearm is getting better on a day-to-day basis and r scott of motion is becoming less painful and improvement also in the range of motion as he reported to day. Objective: Vital Signs: Reviewed. HEENT: Examination unremarkable. Lungs: Clear to auscultation. No rhonchi or rales. Heart: Sounds normal. Abdomen: Soft, bowel sounds normal. No guarding, rigidity, tenderness, or distention. Extremities: No leg edema. Laboratory Data: White count 12.6, hemoglobin 16.1, platelets 201. Sodium 140, potassium 4.1, chlor kenyon 105, bicarb 33, BUN 21, creatinine 0.83, glucose 112, magnesium 1.9. CAT scan of the chest done yesterday shows infiltrate in the left lung with air bronchogram. Impression: 1.Cellulitis, right upper extremity. 2.Pneumonia. 3.Chronic obstructive pulmonary disease. 4.Hypertension. 5.Hypothyroidism. 6.Anemia, resolved. Plan: The patient does not need to take any iron supplement anymore. His hemoglobin is normal and joy daniel iron supplement was discontinued. He is responding well to IV Zosyn and that should help with hi s pneumonia as well as with the cellulitis of right upper extremity. I did inform him that back in of 2017, when he was in the hospital he also had left sided pneumonia in the similar location and he has it again, so what we will need to do is continue to do chest x-ray and if necessary repea t CAT scan to make sure that this infiltrate completely resolves. Otherwise, he may need a bronchosc opy to rule out any endobronchial lesion to rule out lung cancer. This was discussed with him today. We will continue current medications. I will see him tomorrow for followup, possible discharge to go home on Monday on oral antibiotics like Augmentin. Details and plan of treatment discussed with t codi patient. REJI/MODL Voice ID: [id number] Report ID: [id number]
[2018-12-15] MEDS: LEVOTHYROXINE SOD 0.025 MG TAB PO SCH (21:28)
[2018-12-16] MEDS: PIPER/TAZO/NS 3.375gm 3.375 GM/100 ML BAG IVPB SCH ×3 (01:00→17:03)
[2018-12-16] MEDS: ENOXAPARIN 40 MG/0.4 ML SQ SCH (09:17)
[2018-12-16] MEDS: METOPROLOL TAR 25 MG TAB PO SCH ×2 (09:17→20:50)
[2018-12-16] MEDS: PANTOPRAZOLE 40MG TABLET PO SCH (09:18)
[2018-12-16] MEDS: MORPHINE 2 MG/ML SYR IV PRN (09:20)
--- NOTE | 2018-12-16 13:53 | PN ---
Date of Progress Note: 12/16/2018 Subjective: The patient was seen this morning for followup. No new complaints or problems reported by the patient. He was sitting in chair, denied any complaints, but pain and swelling from right claros d is improving on a day-to-day basis. Range of movement is also significantly better now. He is amb ulating well. Objective: Vital Signs: Reviewed. HEENT: Unremarkable. Lungs: Bilateral good equal air entry. Presence of some scattered wheezing noted in lung field and some rales in left lower lung field. Not using any accessory muscles of respiration. Heart: Sounds normal. Abdomen: Soft. Bowel sounds normal. No guarding, rigidity, tenderness, or distention. Extremities: No leg edema. Impression: 1.Pneumonia. 2.Cellulitis, right upper extremity. Plan: We will go ahead and continue current medications, which is current IV antibiotics Zosyn, curr ent antihypertensive medication, and I will see him tomorrow for followup. We will repeat blood work tomorrow. Possible discharge to home tomorrow on oral antibiotics. REJI/MODL Voice ID: [id number] Report ID: [id number]
[2018-12-16] MEDS: LEVOTHYROXINE SOD 0.025 MG TAB PO SCH (20:50)
[2018-12-16 22:56] VITALS: O2SAT 92
[2018-12-17] MEDS: PIPER/TAZO/NS 3.375gm 3.375 GM/100 ML BAG IVPB SCH (00:32)
[2018-12-17 07:21] LABS: Absolute Lymphocytes (CBC) 0.9 K/uL (0.7-4.9); Absolute Monocytes 1.2 K/uL (0.1-1.3); Absolute Neutrophil 5.4 K/uL (1.8-8.0); Basophils % 0.9 % (0-1.3); Hematocrit 48.9 % (39.6-49.0); MPV 8.6 fL (7.6-11.3); Monocytes % 15.3 % (3.3-12.3); RBC Red Blood Cell Count 5.75 M/uL (4.33-5.43)
[2018-12-17 07:41] LABS: BUN Blood Urea Nitrogen 14 mg/dL (7-18); Bicarbonate 37 mmol/L (21-32); Glucose Level 107 mg/dL (74-106); Magnesium 1.9 mg/dL (1.8-2.4); Potassium 4.3 mmol/L (3.5-5.1); Sodium Level 141 mmol/L (136-145)
[2018-12-17 09:25] VITALS: BP 146/78; TEMP 98
--- NOTE | 2018-12-18 05:52 | DS ---
Date of Discharge: 12/17/2018 Disposition: Discharged to go home. Physical Examination: HEENT: Unremarkable. Lungs: Clear to auscultation. Heart: Sounds normal. Abdomen: Soft. Bowel sounds normal. No guarding, rigidity, tenderness, distention. Extremities: Edema, redness from right hand and distal forearm, has almost completely resolved. Katie y trace amount of edema on the dorsum hand. Range of motion is normal at right wrist and right hand and no warmness of the skin or the soft tissue. Laboratory Data: Initial white count 14.2, hemoglobin 17.3, platelets 205. Last white count today 7 .9, hemoglobin 15.7, platelets 175. Initial sodium 136, potassium 3.8, chloride 101, bicarb 32, crea tinine 0.69, glucose 88. Last chemistry this morning; sodium 141, potassium 4.3, chloride 103, bicar b 37, BUN 14, creatinine 0.71, glucose 107. Hospital Course: This is a 57-year-old pleasant male patient, admitted to the hospital after he came into office with complaints of pain and swelling of the right hand. Please see dictated H and P for more information. After the patient was evaluated at the office, he was admitted to the hospital wi th cellulitis of right upper extremity. Please see dictated H and P for more details. The patient w as started on Zosyn and blood culture remained negative. He responded very well to antibiotics. Charito e medications were continued. Over the period of this hospitalization, his right hand swelling has a lmost completely resolved, range of motion of right hand and wrist is back to normal, and pain has re solved now. Routine chest x-ray revealed presence of pneumonia in the left lung. CAT scan of the est was done, which also shows pneumonia with air bronchogram. The patient should improve with the Z osyn as well as pneumonia is concerned and will follow up on chest x-ray until it is resolved. The p atient may return to work day after tomorrow and he was advised to continue all his previous home med ication except stop iron pill and take Augmentin 875 mg twice a day for 1 week and follow up at [facility] in 1 week. Final Diagnoses: 1.Cellulitis, right upper extremity. 2.Pneumonia. 3.Hypertension. 4.COPD. 5.Gastroesophageal reflux disease. 6.Paroxysmal atrial fibrillation. 7.Hypothyroidism. 8.Iron deficiency anemia, resolved. REJI/MODL Voice ID: [id number] Report ID: [id number]
== END 2018-12-17 09:27 | disposition home or self-care (01) | DRG 602 ==
LOC: 2ND 10:08
PROVIDERS: ADMIT Internal Medicine; ATTEND Internal Medicine
DX: L03.113 Cellulitis of right upper limb (principal); J18.9 Pneumonia, unspecified organism; J44.0 Chronic obstructive pulmonary disease with (acute) lower respiratory infection; I10 Essential (primary) hypertension; K21.9 Gastro-esophageal reflux disease without esophagitis; I48.0 Paroxysmal atrial fibrillation; E03.9 Hypothyroidism, unspecified; D50.9 Iron deficiency anemia, unspecified; F17.210 Nicotine dependence, cigarettes, uncomplicated
CPT/HCPCS: 36415; 71046; 71250; 80048; 80053; 81001; 83735; 84145; 84439; 84443; 85025; 85652; 86430; 87040; 96365; 96367; J0295; J1650; J2270; J2543; J3475

== ENCOUNTER 2019-01-16 16:37 | Inpatient (IN) | payer OTHER ==
[2019-01-16 18:56] LABS: Absolute Lymphocytes (CBC) 1.9 K/uL (0.7-4.9); Absolute Monocytes 2.2 K/uL (0.1-1.3); Absolute Neutrophil 9.3 K/uL (1.8-8.0); Basophils % 0.7 % (0-1.3); Eosinophils % 1.5 % (0-4.4); Hematocrit 52.6 % (39.6-49.0); Lymphocytes % 13.8 % (15.3-44.8); MPV 7.6 fL (7.6-11.3); Monocytes % 16.1 % (3.3-12.3); RBC Red Blood Cell Count 6.37 M/uL (4.33-5.43)
[2019-01-16] MEDS ORDERED: ALBUTEROL 2.5 MG/3 ML NEB SOL ONE (19:08)
[2019-01-16] MEDS ORDERED: METHYLPREDNISOLONE 125 MG INJ ONE (19:08)
[2019-01-16] MEDS ORDERED: IPRATROPIUM BROM 0.5MG/2.5ML ONE (19:08)
[2019-01-16 19:09] LABS: ALT/SGPT 54 U/L (12-78); AST/SGOT 17 U/L (15-37); Albumin 2.9 g/dL (3.4-5.0); Alkaline Phosphatase 68 U/L (45-117); BUN Blood Urea Nitrogen 17 mg/dL (7-18); Bicarbonate 38 mmol/L (21-32); Bilirubin Total 0.6 mg/dL (0.2-1.0); Glucose Level 91 mg/dL (74-106); Lipase 38 U/L (73-393); Magnesium 1.9 mg/dL (1.8-2.4); NT PRO-BNP 1413 pg/mL (<125); Potassium 4.4 mmol/L (3.5-5.1); Protein, Total 7.5 g/dL (6.4-8.2); Sodium Level 139 mmol/L (136-145); Troponin (Emerg Dept Use Only) < 0.02 ng/mL (0.0-0.045)
--- NOTE | 2019-01-16 19:31 | RAD REPORT ---
EXAM DESCRIPTION: RAD - Chest Single View - 01/16/2019 7:00 pm CLINICAL HISTORY: COPD COMPARISON: December 14, 2018 TECHNIQUE: AP portable chest image was obtained 1858 hours . FINDINGS: No peripheral mass or consolidation. Chronic interstitial lung disease is present not subs tantially different from comparison. Patchy left base opacification is stable. Heart size is normal l imits and stable. No acute vascular engorgement. No measurable pleural effusion and no pneumothorax. No acute bony abnormality seen. No acute aortic findings suspected. IMPRESSION: Chronic interstitial lung disease present not clearly different from December 14 imaging. Continued minimal opacification in the left base near the diaphragm.
[2019-01-16 20:14] LABS: Blood Morphology Comment NOT SEEN (NOT SEEN); Platelet Estimate ADEQ; Urine White Blood Cell Casts OK
--- NOTE | 2019-01-16 20:24 | RAD REPORT ---
EXAM DESCRIPTION: CT - Chest For Pe Angio - 01/16/2019 8:04 pm CLINICAL HISTORY: Abnormal ABG, shortness of breath, COPD COMPARISON: December 14, 2018 CT chest TECHNIQUE: Dynamically enhanced 3 mm thick images of the chest were obtained during administration o f approximately 150mL Isovue 370 IV contrast. Coronal and oblique MIP reconstruction images were gene rated and reviewed. Exam utilizes a protocol to evaluate the pulmonary arterial tree. All CT scans are performed using dose optimization technique as appropriate and may include automated exposure control or mA/KV adjustment according to patient size. FINDINGS: No pulmonary emboli are identified. The aorta as imaged shows no acute or suspicious finding. Cardiomegaly is present. No abnormal perica rdial thickening or effusion. Parenchymal opacification is present in the inferior aspect of the lingula. This anterior left base o pacification has not change from December 14. No pleural effusion or pleural thickening. No mediastinal or hilar suspicious masses. No chest wall masses or abnormal axillary lymphadenopathy. IMPRESSION: No pulmonary emboli identified. Focal parenchymal opacification in the lingula is believed to be chronic atelectasis or scarring. Thi s has not changed from December 14, 2018.
--- NOTE | 2019-01-16 20:36 | ER ---
Nurse's Notes [facility] Name: Danyel Yu Jr Age: 58 yrs Sex: Male : 1960 Arrival Date: 01/16/2019 Time: 16:40 Bed 4 Private MD: Diagnosis: Chronic obstructive pulmonary disease with (acute) exacerbation;Hypoxemia;Dyspnea, unspecified Presentation: 01/16 16:47 Presenting complaint: sent by Dr. Garcia for evaluation of abnormal ABGs/ Low O2. ss Transition of care: patient was not received from another setting of care. Onset of symptoms is unknown. Risk Assessment: Do you want to hurt yourself or someone else? Patient reports no desire to harm self or others. Initial Sepsis Screen:. Care prior to arrival: None. 16:47 Method Of Arrival: Wheelchair ss 16:47 Acuity: RIVERA 2 ss 19:26 Initial Sepsis Screen: Does the patient meet any 2 criteria? No. Patient's initial tl2 sepsis screen is negative. Does the patient have a suspected source of infection? No. Patient's initial sepsis screen is negative. Historical: - Allergies: 16:58 No Known Allergies; ss - Home Meds: 19:28 Ibuprofen Oral [Active]; tl2 - PMHx: 16:49 Hypertension; ss - PSHx: 16:49 Hernia repair; ss - Immunization history:: Adult Immunizations unknown. - Social history:: Smoking status: Patient uses tobacco products, smokes one-half pack cigarettes per day. - Ebola Screening: : Patient denies exposure to infectious person Patient denies travel to an Ebola-affected area in the 21 days before illness onset. Screenin:00 Abuse screen: Denies threats or abuse. Denies injuries from another. Nutritional bp screening: No deficits noted. Tuberculosis screening: No symptoms or risk factors identified. Fall Risk None identified. Assessment: 16:59 Reassessment: Pt reports he went to see Dr. Garcia today because his made him ss because he has been very sleepy. Pt reports he has been feeling tired x 3 years and initially went to see his PCP to get a medication refill for his chronic pain. 17:00 General: Appears comfortable, Behavior is calm, cooperative. Pain: Complains of pain in aa5 maryam knees and maryam hips Pain does not radiate. Pain currently is 6 out of 10 on a pain scale. Quality of pain is described as aching, Pain began years ago. Is continuous. Neuro: Level of Consciousness is awake, alert, obeys commands, Oriented to person, place, time, situation. Cardiovascular: Heart tones S1 S2 present Rhythm is regular. Respiratory: Airway is patent Respiratory effort is even, unlabored, Respiratory pattern is regular, symmetrical, Breath sounds with wheezes bilaterally. Denies cough, shortness of breath. GI: No signs and/or symptoms were reported involving the gastrointestinal system. Patient currently denies nausea. : No signs and/or symptoms were reported regarding the genitourinary system. EENT: No signs and/or symptoms were reported regarding the EENT system. Denies nasal congestion. Derm: Skin is pink, warm \T\ dry. Musculoskeletal: Range of motion: intact in all extremities. 18:35 Reassessment: Labs recollected and sen to lab. Pt notified of wait time. . aa5 18:35 Reassessment: Patient is alert, oriented x 3, equal unlabored respirations, skin aa5 warm/dry/pink. Pt sitting up at side of bed. Pt resting with eyes closed, O2 sat 79% when pt falls asleep, was notified of finding. . 19:20 Reassessment: Dr. Cervantes notified of abnormal lab, D-dimer 554. tl2 19:25 Reassessment: Pt switched from neb mask to 4 L per nc. Maintains 93% O2 sat. General: tl2 Appears in no apparent distress. comfortable, Behavior is calm, cooperative, appropriate for age. Pain: Denies pain. Neuro: Level of Consciousness is awake, alert, obeys commands, Oriented to person, place, time, situation. Cardiovascular: Denies chest pain. Respiratory: Airway is patent Respiratory effort is even, unlabored, Respiratory pattern is regular, symmetrical, Denies cough, shortness of breath. GI: No signs and/or symptoms were reported involving the gastrointestinal system. : No signs and/or symptoms were reported regarding the genitourinary system. Derm: Skin is pink, warm \T\ dry. 21:59 Reassessment: Patient appears in no apparent distress at this time. Patient and/or tl2 family updated on plan of care and expected duration. Pain level reassessed. Patient is alert, oriented x 3, equal unlabored respirations, skin warm/dry/pink. pt stable and ready for transport to floor. Vital Signs: 16:45 Pulse Ox 79% on R/A; hj 16:57 Pulse Ox 95% on Venturi mask; ss 16:57 BP 166 / 94; Pulse 89; Resp 24; Temp 98.6(TE); Pulse Ox 79% on R/A; Weight 104.33 kg; ss Height 6 ft. 0 in. (182.88 cm); 17:15 BP 145 / 89; Pulse 84; Resp 20 S; Pulse Ox 90% on 30% Venturi mask; aa5 18:35 BP 145 / 99; Pulse 79; Resp 18 S; Pulse Ox 92% on 30% Venturi mask; aa5 19:26 BP 158 / 96; Pulse 84; Resp 24; Pulse Ox 93% on 4 lpm NC; tl2 21:30 BP 145 / 80; Pulse 89; Resp 18; Pulse Ox 90% on 4 lpm NC; tl2 16:57 Body Mass Index 31.19 (104.33 kg, 182.88 cm) ss 16:45 per technical advisor hj 18:35 Pt's O2 sat decreased to 79% on a venti mask upon falling asleep, MD was notified. aa5 ED Course: 16:40 Patient arrived in ED. ss 16:47 Negrito Luciano MD is Attending Physician. ps1 16:48 Triage completed. ss 16:49 Arm band placed on right wrist. ss 16:56 Courtney Manrique, VIDHI is Primary Nurse. aa5 16:57 EKG done, by chemical processing technician. reviewed by Negrito Luciano MD. sm3 17:00 Patient has correct armband on for positive identification. Placed in gown. Bed in low bp position. Call light in reach. Side rails up X2. Adult w/ patient. 17:30 Inserted saline lock: 20 gauge in right antecubital area, using aseptic technique. bp Blood collected. 19:00 CXR XRAY In Process Unspecified. EDMS 19:00 Report given to VIDHI Ireland and VIDHI Garcia. aa5 19:12 Attending Physician role handed off by Negrito Luciano MD rn 19:12 Lukas Cervantes MD is Attending Physician. rn 20:05 CT Chest For PE Angio In Process Unspecified. EDMS 20:35 Aracely Singh MD is Hospitalizing Provider. rn 21:59 No provider procedures requiring assistance completed. Patient admitted, IV remains in tl2 place. Administered Medications: 18:52 Drug: DuoNeb (3:1) (2.5 mg - 0.5 mg) 3 ml Route: Nebulizer; aa5 22:01 Follow up: Response: No adverse reaction; Marked relief of symptoms tl2 18:52 Drug: SOLU-Medrol 125 mg Route: IVP; Site: right antecubital; aa5 22:01 Follow up: Response: No adverse reaction tl2 Outcome: 20:36 Decision to Hospitalize by Provider. rn 21:59 Admitted to Tele accompanied by tech, via wheelchair, room 412, with oxygen, with chart.tl2 21:59 Condition: stable 21:59 Discharge instructions given to patient, Instructed on the need for admit. 22:01 Patient left the ED. tl2 Signatures: Dispatcher [employer] EDMS Lukas Cervantes MD MD rn Calderon, Audri RN RN aa5 Jennifer Frank RN RN Per Burnett RN RN Radha Shukla RN RN tl2 Raman Wooten RN RN bp Singer, Phillip, MD MD [facility] Aleyda Sommers 3 Corrections: (The following items were deleted from the chart) 16:58 16:57 BP 166 / 94; Pulse 24bpm; Resp 24bpm; Pulse Ox 79% RA; Temp 98.6F Temporal; ss 104.33 kg; Height 6 ft. 0 in.; BMI: 31.1; ss
--- NOTE | 2019-01-16 20:37 | EDPHYS ---
Physician Documentation [facility] Name: Danyel Yu Jr Age: 58 yrs Sex: Male : 1960 Arrival Date: 01/16/2019 Time: 16:40 Bed 4 Private MD: ED Physician Lukas Cervantes HPI: 01/16 17:15 This 58 yrs old Male presents to ER via Wheelchair with complaints of ps1 Abnormal Lab Results. 17:15 patient sent in from Dr. Garcia. Patient states that he has a history of COPD. Went ps1 to [facility] for evaluation and sent over for hypoxia and tachypnea. Pt states that he is still a smoker. No home O2. States he has a cough that is non-productive. No fever.. Historical: - Allergies: 16:58 No Known Allergies; ss - Home Meds: 19:28 Ibuprofen Oral [Active]; tl2 - PMHx: 16:49 Hypertension; ss - PSHx: 16:49 Hernia repair; ss - Immunization history:: Adult Immunizations unknown. - Social history:: Smoking status: Patient uses tobacco products, smokes one-half pack cigarettes per day. - Ebola Screening: : Patient denies exposure to infectious person Patient denies travel to an Ebola-affected area in the 21 days before illness onset. ROS: 18:44 Constitutional: Negative for fever, chills, and weight loss, Eyes: Negative for injury, ps1 pain, redness, and discharge, Cardiovascular: Negative for chest pain, palpitations, and edema, Abdomen/GI: Negative for abdominal pain, nausea, vomiting, diarrhea, and constipation, Back: Negative for injury and pain, MS/Extremity: Negative for injury and deformity, Skin: Negative for injury, rash, and discoloration, Neuro: Negative for headache, weakness, numbness, tingling, and seizure. 18:44 Respiratory: Positive for cough, shortness of breath, wheezing, expiratory. Exam: 18:44 Constitutional: This is a well developed, well nourished patient who is awake, alert, ps1 and in no acute distress. Head/Face: Normocephalic, atraumatic. Eyes: Pupils equal round and reactive to light, extra-ocular motions intact. Lids and lashes normal. Conjunctiva and sclera are non-icteric and not injected. Chest/axilla: Normal chest wall appearance and motion. Nontender with no deformity. No lesions are appreciated. Cardiovascular: Regular rate and rhythm. No gallops, murmurs, or rubs. Normal PMI, no JVD. No pulse deficits. Abdomen/GI: Soft, non-tender, with normal bowel sounds. No distension or tympany. No guarding or rebound. No evidence of tenderness throughout. MS/ Extremity: Pulses equal, no cyanosis. Neurovascular intact. Full, normal range of motion. Neuro: Awake and alert, GCS 15, oriented to person, place, time, and situation. Cranial nerves II-XII grossly intact. Sensory grossly intact. Psych: Awake, alert, with orientation to person, place and time. Behavior, mood, and affect are within normal limits. 18:44 Respiratory: mild respiratory distress is noted, Respirations: labored breathing, that is mild, Breath sounds: bronchial sounds, that are moderate, wheezing: Vital Signs: 16:45 Pulse Ox 79% on R/A; hj 16:57 Pulse Ox 95% on Venturi mask; ss 16:57 BP 166 / 94; Pulse 89; Resp 24; Temp 98.6(TE); Pulse Ox 79% on R/A; Weight 104.33 kg; ss Height 6 ft. 0 in. (182.88 cm); 17:15 BP 145 / 89; Pulse 84; Resp 20 S; Pulse Ox 90% on 30% Venturi mask; aa5 18:35 BP 145 / 99; Pulse 79; Resp 18 S; Pulse Ox 92% on 30% Venturi mask; aa5 19:26 BP 158 / 96; Pulse 84; Resp 24; Pulse Ox 93% on 4 lpm NC; tl2 21:30 BP 145 / 80; Pulse 89; Resp 18; Pulse Ox 90% on 4 lpm NC; tl2 16:57 Body Mass Index 31.19 (104.33 kg, 182.88 cm) ss 16:45 per vp respiratory hj 18:35 Pt's O2 sat decreased to 79% on a venti mask upon falling asleep, was notified. aa5 MDM: 17:08 Patient medically screened. ps1 20:32 Differential diagnosis: Anemia Chronic Obstructive Pulmonary Disease pneumonia, rn Pneumothorax pulmonary edema, Pulmonary Embolism. Data reviewed: vital signs, nurses notes, lab test result(s), EKG, radiologic studies, CT scan, plain films, and as a result, I will admit patient. Counseling: I had a detailed discussion with the patient and/or guardian regarding: the historical points, exam findings, and any diagnostic results supporting the discharge/admit diagnosis, lab results, radiology results, the need for further work-up and treatment in the hospital. Response to treatment: the patient's symptoms have mildly improved after treatment, and as a result, I will admit patient. Admission orders: after a detailed discussion of the patient's condition and case, the admit orders are written by me. ED course: Pt presented with COPD, hypoxia, sent by Dr. Garcia for hypoxia and evaluation, will admit for oxygen requirement, COPD exacerbation with hypoxia, likely sleep apnea and periods of falling asleep randomly during day, can benefit from inpatient admission for oxygen, breathing treatments, pulm consult, and evaluation for home oxygen. Also needs sleep study. . 01/16 17:01 Order name: Blood Culture Adult (2) ps1 01/16 17:01 Order name: CBC with Diff; Complete Time: 20:33 ps1 01/16 17:01 Order name: D-Dimer; Complete Time: 19:35 ps1 01/16 17:01 Order name: Lipase; Complete Time: 19:35 ps1 01/16 17:01 Order name: Magnesium; Complete Time: 19:35 ps1 01/16 17:01 Order name: NT PRO-BNP; Complete Time: 19:35 ps1 01/16 17:01 Order name: Troponin (emerg Dept Use Only); Complete Time: 19:35 ps1 01/16 18:22 Interpretation: Abnormal. ps1 01/16 17:01 Order name: EKG; Complete Time: 17:03 ps1 01/16 17:01 Order name: CMP; Complete Time: 19:35 ps1 01/16 18:23 Order name: CXR XRAY; Complete Time: 19:35 ps1 01/16 19:34 Order name: CT Chest For PE Angio; Complete Time: 20:33 rn 01/16 20:14 Order name: CBC Smear Scan; Complete Time: 20:33 EDMS 01/16 17:01 Order name: Cardiac monitoring; Complete Time: 17:20 ps1 01/16 17:01 Order name: EKG - Nurse/Tech; Complete Time: 17:21 ps1 01/16 17:01 Order name: IV Saline Lock; Complete Time: 17:37 ps1 0612 17:01 Order name: Labs collected and sent; Complete Time: 17:37 [facility] 01/16 17:01 Order name: O2 Per Protocol; Complete Time: 17:21 [facility] 06 17:01 Order name: O2 Sat Monitoring; Complete Time: 17:21 [facility] 12 18:12 Order name: Labs - recollect needed; Complete Time: 18:40 bd Administered Medications: 18:52 Drug: DuoNeb (3:1) (2.5 mg - 0.5 mg) 3 ml Route: Nebulizer; aa5 22:01 Follow up: Response: No adverse reaction; Marked relief of symptoms tl2 18:52 Drug: SOLU-Medrol 125 mg Route: IVP; Site: right antecubital; aa5 22: Follow up: Response: No adverse reaction tl2 Disposition: 20:32 Critical Care:. rn Disposition: 01/16/19 20:36 Hospitalization ordered by Aracely Singh for Inpatient Admission. Preliminary diagnosis are Chronic obstructive pulmonary disease with (acute) exacerbation, Hypoxemia, Dyspnea, unspecified. - Bed requested for Telemetry/MedSurg (Inpatient). - Status is Inpatient Admission. tl2 - Condition is Stable. - Problem is new. - Symptoms have improved. UTI on Admission? No Critical care time excluding procedures: 20:32 Critical care time: Bedside Care: 25 minutes, Consultation: 5 minutes. Total time: 30 rn minutes Signatures: Dispatcher [employer] EDMS Charlene Morris Roman, MD MD rn Calderon, Audri, RN RN aa5 Jennifer Frank RN RN ss Garcia, Cindy, RN RN Radha Shukla RN RN tl2 Negrito Lcuiano MD MD ps1 Corrections: (The following items were deleted from the chart) 18:46 17:15 patient sent in from Dr. Garcia. ps1 ps1 20:47 20:36 Hospitalization Ordered by Aracely Singh MD for Inpatient Admission. Preliminary cg diagnosis is Chronic obstructive pulmonary disease with (acute) exacerbation; Hypoxemia; Dyspnea, unspecified. Bed requested for Telemetry/MedSurg (Inpatient). Status is Inpatient Admission. Condition is Stable. Problem is new. Symptoms have improved. UTI on Admission? No. rn 22: 20:47 01/16/2019 20:36 Hospitalization Ordered by Aracely Singh MD for Inpatient Admission. tl2 Preliminary diagnosis is Chronic obstructive pulmonary disease with (acute) exacerbation; Hypoxemia; Dyspnea, unspecified. Bed requested for Telemetry/MedSurg (Inpatient). Status is Inpatient Admission. Condition is Stable. Problem is new. Symptoms have improved. UTI on Admission? No. cg
--- NOTE | 2019-01-16 21:16 | EKG ---
Test Date: 2019-01-16 Test Time: 16:57:40 Ad Terminal Makeup Operator: NARESH MEASUREMENT RESULTS: Intervals: Rate: 83 NH: 158 QRSD: 82 QT: 372 QTc: 437 Mccall: P: 70 NH: 158 QRS: -28 T: 26 INTERPRETIVE STATEMENTS: Normal sinus rhythm Inferior infarct, age undetermined Abnormal ECG Compared to ECG 06/28/2018 18:50:24 Atrial fibrillation no longer present ST (T wave) deviation no longer present Myocardial infarct finding still present Electronically Signed On 01-16-19 21:15:13 CDT by Darek Ornelas
[2019-01-16] MEDS ORDERED: IPRATROPIUM BROM 0.5MG/2.5ML NEB PRN (22:04)
[2019-01-16] MEDS ORDERED: ONDANSETRON 4 MG/2 ML VIAL IV PRN (22:04)
[2019-01-16] MEDS ORDERED: ALBUTEROL 2.5 MG/3 ML NEB SOL NEB PRN (22:04)
[2019-01-16 22:26] VITALS: BMI 31.2
[2019-01-17 03:59] LABS: Absolute Lymphocytes (CBC) 0.4 K/uL (0.7-4.9); Absolute Monocytes 0.3 K/uL (0.1-1.3); Basophils % 0.1 % (0-1.3); Hematocrit 52.6 % (39.6-49.0); Lymphocytes % 4.5 % (15.3-44.8); MPV 7.6 fL (7.6-11.3); Monocytes % 3.1 % (3.3-12.3); RBC Red Blood Cell Count 6.28 M/uL (4.33-5.43)
[2019-01-17] MEDS: METHYLPREDNISOLONE 40 MG INJ IV SCH ×3 (04:09→18:08)
[2019-01-17 04:12] LABS: BUN Blood Urea Nitrogen 19 mg/dL (7-18); Bicarbonate 39 mmol/L (21-32); Glucose Level 201 mg/dL (74-106); Potassium 4.5 mmol/L (3.5-5.1); Sodium Level 137 mmol/L (136-145)
[2019-01-17 04:42] LABS: Blood Morphology Comment NOT SEEN (NOT SEEN); Platelet Estimate ADEQ; Urine White Blood Cell Casts OK
[2019-01-17] MEDS: PANTOPRAZOLE 40MG TABLET PO SCH (08:17)
[2019-01-17] MEDS: METOPROLOL TAR 50 MG TAB PO SCH (08:20)
[2019-01-17] MEDS: LEVOTHYROXINE SOD 0.025 MG TAB PO SCH (08:22)
[2019-01-17] MEDS: ARFORMOTEROL TARTRATE 15 MCG/2 ML VIAL.NEB NEB SCH ×2 (08:55→20:00)
[2019-01-17] MEDS ORDERED: ASPIRIN EC 81 MG TAB PO SCH (09:00)
[2019-01-17] MEDS ORDERED: FLUTICASONE PO SCH (09:00)
[2019-01-17] MEDS ORDERED: VILANTEROL PO SCH (09:00)
[2019-01-17 12:19] LABS: Arterial Blood Carboxyhemoglob 4.3 % (0-1.5); Blood Gas Oxyhemoglobin 87.9 % (94-97); Blood O2 Saturation 92.5 % (92-98.5)
--- NOTE | 2019-01-17 12:34 | P.CNS ---
Date of Consult: 01/17/19 Chief Complaint: Respiratory failure altered mental status History of Present Illness: Patient is 58 years of age with a history of COPD history of alcoholism although he quit drinking quite some time ago and was evaluated my office complaining of altered mental status hypersomnia and hypoxemia was subsequently sent to the emergency room as he was hypoxic hypercapnic and was admitted to the hospital is currently on BiPAP is still very sleepy and drowsy patient has chronic venous insufficiency Allergies No Known Allergies Allergy (Verified 12/27/16 07:46) Home Medications: Metoprolol Tartrate [Lopressor*] 50 mg PO SEECOM 09/11/18 Pantoprazole [Protonix Tab*] 40 mg PO DAILY 09/11/18 Fluticasone/Vilanterol [Breo Ellipta 200-25 Mcg INH] 1 inhaler PO DAILY Levothyroxine Sodium 25 mcg PO DAILY 12/13/18 - Past Medical/Surgical History Diabetic: No -: HTN -: COPD -: Venous insufficiency -: Lymphedema -: hernia repair -: perforated bowel - Family History Father Medical History: Other (see notes) Notes: alcoholic Mother Medical History: Heart disease - Social History Smoking Status: Current every day smoker Alcohol use: Yes CD- Drugs: No Caffeine use: Yes Place of Residence: Home Review of Systems is unable to be obtained Physical Examination Temp Pulse Resp BP Pulse Ox 97.4 F 87 16 141/67 H 92 01/17/19 06:00 01/17/19 08:20 01/17/19 06:00 01/17/19 08:20 01/17/19 06:00 General: Other (Drowsy) HEENT: Atraumatic Neck: Supple Respiratory: Clear to auscultation bilaterally, Diminished Cardiovascular: Regular rate/rhythm, Edema Laboratory Data (last 24 hrs) 01/16/19 18:35: Sodium 139, Potassium 4.4, BUN 17, Creatinine 0.74, Glucose 91, Magnesium 1.9, Total Bilirubin 0.6, AST 17, ALT 54, Alkaline Phosphatase 68, Lipase 38 L 01/16/19 18:35: WBC 13.7 H, Hgb 16.6, Hct 52.6 H, Plt Count 251 - Problems (1) Chronic respiratory failure Current Visit: Yes Status: Acute Plan: Strongly suspect that the patient has chronic respiratory failure from COPD history of active tobacco abuse he has quit drinking now not sure why he is so lethargic although arousable patient is currently on BiPAP titrate sat to 90% repeat ABGs of also put him on spironolactone and Diamox in addition to a thyroid function test ammonia level started him on thymine scheduled bronchodilators I have also ordered a CT scan of the head without contrast as he received contrast yesterday for a PE there is no evidence of PE is a chest CT scan otherwise looks fairly unremarkable all labs reviewed chemistries unremarkable hematocrit elevated due to chronic hypoxemia he may benefit from a noninvasive ventilator patient has chronic stable COPD Qualifiers: Respiratory failure complication: hypoxia and hypercapnia Qualified Code(s) : J96.11 - Chronic respiratory failure with hypoxia; J96.12 - Chronic respiratory failure with hypercapnia
--- NOTE | 2019-01-17 13:58 | RAD REPORT ---
EXAM DESCRIPTION: CT - Head Brain Wo Cont - 01/17/2019 1:39 pm CLINICAL HISTORY: Transient alteration of awareness COMPARISON: None. TECHNIQUE: Axial 5 mm thick images of the head were obtained without IV contrast. All CT scans are performed using dose optimization technique as appropriate and may include automated exposure control or mA/KV adjustment according to patient size. FINDINGS: No intracranial hemorrhage, mass, edema or shift of mid-line structures. No acute infarcti on changes seen. No abnormal extra-axial fluid collections. Ventricles are normal. Mastoid air cells and visualized portions of the paranasal sinuses are clear. No acute bony findings. IMPRESSION: Negative non-contrast CT head examination.
[2019-01-17] MEDS: acetaZOLAMIDE 250 MG TAB PO SCH (14:08)
[2019-01-17] MEDS: THIAMINE 200 MG/2 ML INJ IVP SCH (14:10)
[2019-01-17] MEDS: SPIRONOLACTONE 25 MG TABLET PO SCH (14:10)
[2019-01-17] MEDS: IPRATROPIUM BROM 0.5MG/2.5ML NEB SCH ×2 (14:30→20:00)
[2019-01-17 14:55] LABS: Urine Appearance CLEAR; Urine Bilirubin NEGATIVE (NEG); Urine Blood NEGATIVE (NEG); Urine Color YELLOW; Urine Glucose NEGATIVE (NEG); Urine Protein 1+ (NEG); Urine Specific Gravity >=1.030 (1.005-1.030); Urine Urobilinogen 0.2 mg/dL (0.2-1.0); Urine pH 5.5 (5.0-7.0)
[2019-01-17 15:03] LABS: Urine Microscopic Reflex ORDER UMIC
[2019-01-17 15:16] LABS: Urine Bacteria <20 /HPF (NONE SEEN); Urine Culture Reflex Order NOT NEEDED; Urine Mucus 1+ /HPF (NONE SEEN); Urine RBC <5 /HPF (NONE SEEN)
[2019-01-17] MEDS: METOPROLOL TAR 25 MG TAB PO SCH (22:24)
[2019-01-18] MEDS: IPRATROPIUM BROM 0.5MG/2.5ML NEB SCH ×4 (01:38→20:10)
[2019-01-18] MEDS: LEVOTHYROXINE SOD 0.025 MG TAB PO SCH ×2 (05:32→21:52)
[2019-01-18] MEDS: METHYLPREDNISOLONE 40 MG INJ IV SCH (05:33)
[2019-01-18] MEDS: ARFORMOTEROL TARTRATE 15 MCG/2 ML VIAL.NEB NEB SCH ×2 (07:57→20:10)
[2019-01-18] MEDS: acetaZOLAMIDE 250 MG TAB PO SCH (09:08)
[2019-01-18] MEDS: METOPROLOL TAR 50 MG TAB PO SCH (09:09)
[2019-01-18] MEDS: PANTOPRAZOLE 40MG TABLET PO SCH (09:10)
[2019-01-18] MEDS: SPIRONOLACTONE 25 MG TABLET PO SCH (09:10)
[2019-01-18] MEDS: predniSONE 10 MG TAB PO SCH (09:10)
[2019-01-18] MEDS: THIAMINE 200 MG/2 ML INJ IVP SCH (09:11)
--- NOTE | 2019-01-18 09:56 | P.PN ---
Subjective Date of Service: 01/18/19 Chief Complaint: Respiratory failure altered mental status Subjective: Improving (Patient is doing much better today he is not sleepy qualifies for a noninvasive ventilator and home oxygen) Review of Systems General: Weakness Respiratory: Shortness of Breath Physical Examination - Vital Signs Temperature: 98.5 F Blood Pressure: 135/71 Pulse: 81 Respirations: 18 Pulse Ox (%): 95 - Physical Exam General: Alert, Oriented x3 Respiratory: Clear to auscultation bilaterally, Diminished Cardiovascular: No edema, Regular rate/rhythm Assessment & Plan - Problems (Diagnosis) (1) Chronic respiratory failure Current Visit: Yes Status: Acute Plan: Patient admitted with chronic respiratory failure due to presume COPD he will need outpatient pulmonary function testing patient qualifies for a noninvasive ventilator that will benefit him to prevent Re admissions to the hospital continue with bronchodilators he will also need low-dose prednisone thymine CT scan was negative PSH level normal ammonia level mildly elevated possible does Qualifiers: Respiratory failure complication: hypoxia and hypercapnia Qualified Code(s) : J96.11 - Chronic respiratory failure with hypoxia; J96.12 - Chronic respiratory failure with hypercapnia
[2019-01-18 10:40] LABS: Arterial Blood Carboxyhemoglob 2.6 % (0-1.5); Blood O2 Saturation 88.8 % (92-98.5)
[2019-01-18] MEDS: METOPROLOL TAR 25 MG TAB PO SCH (21:48)
--- NOTE | 2019-01-18 22:26 | PN ---
Date of Progress Note: 01/18/2019 Subjective: The patient was seen this morning for followup. No new complaints, problems reported by the patient, lying in bed, not in distress. Objective: Vital Signs: Reviewed. HEENT: Unremarkable. Lungs: Clear to auscultation. Heart: Sounds normal. Abdomen: Soft. Bowel sounds normal. No guarding, rigidity, tenderness, distention. Extremities: No leg edema. Impression: 1.Chronic respiratory failure, with hypoxia and hypercapnia. 2.COPD. 3.Hypertension. 4.Gastroesophageal reflux disease. 5.Rheumatoid arthritis. Plan: The patient's synovial swelling from both wrists has almost completely resolved. His pain and stiffness from joint have improved significantly. As of today, we will discontinue IV steroid and s tart him on oral prednisone 10 mg daily. I do not wish to continue prednisone for any significant am ount of time, but unfortunately without taking any steroid, he has extreme difficulty with pain, swel ling, and stiffness of his joints to the extent that he cannot move his joints at all as I have seen on outpatient basis. His appointment to see ad setter is next week and he will keep that appoin tment. Meanwhile until he has chance to see the ad setter, we will give him small-dose predniso ne and I have discussed with him about my concerns about prednisone and GI side effect, but at this p oint, the benefit is more than the risk. I have also given him a letter from the office when I saw h im last time to take it to his ad setter regarding my concerns about long-term steroid therapy b ecause of his prior recent experience with perforated stomach ulcer and bleeding, so he should not be on any chronic or long-term steroid therapy because of those concerns, but at this point, unfortunat claudia, we have to use such medication for him. I did talk to Dr. Garcia and he is in the process of making arrangements for the patient to get noninvasive ventilator with oxygen. Once that is arranged , the patient will be able to go home. REJI/MODL Voice ID: [id number] Report ID: [id number]
[2019-01-19] MEDS: IPRATROPIUM BROM 0.5MG/2.5ML NEB SCH ×2 (01:50→07:55)
--- NOTE | 2019-01-19 03:03 | HP ---
Date of Admission: 01/16/2019 Chief Complaint: Low oxygen level. History Of Present Illness: A 58-year-old male patient who is one of my relatively new patient, has underlying COPD due to smoking, and continues to smoke. Recently, was seen and referred to Dr. Dee astudillo for evaluation of sleep apnea as he was noted to be having excessive amount of daytime sleepiness with nighttime snoring, fatigue during daytime, etc. The patient had his first appointment to see Efrain Garcia, which was yesterday and, while he was at his office, his oxygen saturation on room air w as 76%, so he was sent to emergency room. After he was evaluated in the ER, he was [facility] under my service. Dr. Garcia was consulted from Pulmonary Service. The patient also is vasquez ving problem with rheumatoid arthritis. Lately, he is having joint pain that moves from one joint to another joint, associated with joint swelling and stiffness, and recently 9 days course of prednison e was given to him and within 48 hours after giving prednisone his symptoms almost completely resolve d and, as he continued to take it, he was back to his normal self, but within 2-3 days after he stopp ed the prednisone he started to have this joint pain and joint swelling involving both hands on the w rist area. 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 Allergies: NO KNOWN ALLERGIES. Medications: List reviewed. Review of Systems: Respiratory: As mentioned above. Musculoskeletal: As mentioned above. All other systems reviewed are negative. Past Medical History: Significant for hypertension, paroxysmal atrial fibrillation, hypothyroidism, COPD, iron deficiency anemia, rheumatoid arthritis, gastroesophageal reflux disease. Past Surgical History: Exploratory laparotomy in June 2018 for perforated gastric/duodenal ulcer and this was due to long-term use of NSAIDs. The patient also had hernia repair in the past. Family History: Significant for coronary artery disease and unknown type of cancer. Social History: Positive for smoking. Use of alcohol, occasional. Physical Examination: Vital Signs: When he first came into emergency room, temperature 98.6, pulse 89, respiratory rate 24 , blood pressure 166/94. Oxygen saturation in emergency room was 79% on room air. After oxygen was applied, next oxygen saturation on oximeter was 90%. Height 6 feet 1 inch, weight 237 pounds. Laboratory Data: White count yesterday 13.7, hemoglobin 16.6, platelets 251. This morning, white co unt 9.8, hemoglobin 16.4, platelets 216. D-dimer was 554. Blood gas; pH 7.27, pCO2 86.4, PO2 69.2, oxygen saturation 92% on 28% FiO2. Yesterday sodium 139, potassium 4.4, chloride 101, bicarb 38, BUN 17, creatinine 0.74, glucose 91. Liver function tests unremarkable. Troponin, less than 0.02. Tod ay, TSH 1.17, sodium 137, potassium 4.5, chloride 99, bicarb 39, BUN 19, creatinine 0.73, glucose 201 . Urinalysis negative. Chest x-ray; chronic interstitial lung disease, not clearly different from 0 12/14/2018. CAT scan of the chest, per PE protocol; no pulmonary emboli, focal parenchymal opacificat ion in lingula, believed to be chronic atelectasis or scarring. It has not changed from 12/14/2018. Physical Examination: General: Awake, alert, oriented, not in distress. HEENT: Head atraumatic, normocephalic. Conjunctivae nonerythematous. Sclerae white. Mouth, no thr ush or edema noted. Ears/Nose, no mass, lesion, discharge noted. Neck: Supple. No JVD, lymph nodes, bruit, thyromegaly noted. Lungs: Bilateral good equal air entry. Clear to auscultation. No rhonchi. No rales. Heart: Normal heart sounds, no murmur or gallop. Abdomen: Soft, bowel sounds normal. No guarding, rigidity, tenderness, mass, hepatosplenomegaly, dis tention, or bruit noted. Extremities: Has mild synovial swelling of both wrists, right more than left, with some pain with ra nge of motion and some stiffness of joints noted with range of motion. Skin: No rash, ulcer, cellulitis. Lymphatics: No lymph node enlargement in neck, supraclavicular, infraclavicular region. Neuro: No focal neurological deficit. Chest: Unremarkable. External Genitalia: Deferred. Rectal: Deferred. Impression: 1.Chronic respiratory failure with hypoxia and with hypercapnia. 2.Chronic obstructive pulmonary disease. 3.Rheumatoid arthritis. 4.Hypertension. 5.Gastroesophageal reflux disease. 6.Hypothyroidism. 7.Paroxysmal atrial fibrillation. Plan: We will go ahead and admit the patient to hospital for further evaluation and management of th is problem. Patient is appropriate for inpatient and is expected to spend 2 midnights in hospital. We will consult Dr. Garcia from Pulmonary Service. The patient was started on IV steroid, nebulize r treatment, oxygen in the emergency room. We will continue those treatments. We will also continue home medications per order. Patient's hyperglycemia that was noted on today's blood draw was a resu lt of IV steroid that he is getting and we will look into if he had any hemoglobin A1c done fairly re cently or not. Otherwise, we will order that. I will see him tomorrow for followup. REJI/MODL Voice ID: [id number]
[2019-01-19] MEDS: LEVOTHYROXINE SOD 0.025 MG TAB PO SCH (05:56)
[2019-01-19] MEDS: PANTOPRAZOLE 40MG TABLET PO SCH (06:03)
[2019-01-19] MEDS: ARFORMOTEROL TARTRATE 15 MCG/2 ML VIAL.NEB NEB SCH (07:55)
[2019-01-19] MEDS: SPIRONOLACTONE 25 MG TABLET PO SCH (09:40)
[2019-01-19] MEDS: predniSONE 10 MG TAB PO SCH (09:41)
[2019-01-19] MEDS: METOPROLOL TAR 50 MG TAB PO SCH (09:41)
[2019-01-19] MEDS: acetaZOLAMIDE 250 MG TAB PO SCH (09:41)
[2019-01-19] MEDS: THIAMINE 200 MG/2 ML INJ IVP SCH (09:42)
[2019-01-19 13:03] VITALS: O2SAT 96
[2019-01-19 15:10] VITALS: BP 122/66; TEMP 98
--- NOTE | 2019-01-19 15:57 | DS ---
Date of Discharge: 01/19/2019 The patient was seen this morning for followup. He was feeling fine, awake, alert, not sleepy, using oxygen, and denied any joint swelling, joint stiffness or joint pain this morning. The patient had his portable oxygen, which was delivered to him, and that was he was using when I saw him this juan mckee. The patient reports that he is going to have his noninvasive ventilator delivered to his house to day. Objective: Vital Signs: Reviewed. HEENT: Unremarkable. Lungs: Clear to auscultation. Heart: Sounds normal. Abdomen: Soft bowel sounds normal. No guarding, rigidity, tenderness, or distention. Extremities: No leg edema. Laboratory Data: Upon admission, white count 13.7, hemoglobin 16.6, platelets 251. Day after admiss ion, white count 9.8, hemoglobin 16.4, platelets 216. Last chemistry sodium 137, potassium 4.5, chlo ride 99, bicarb 39, BUN 19, creatinine 0.73, glucose 201. TSH 1.17. CAT scan of the chest per PE pr otocol was negative for pulmonary embolism. Chest x-ray showed chronic interstitial lung disease hannah nges no different than before. Blood gas upon admission had shown pH 7.27, pCO2 86.4, PO2 69.2, satu ration 92% on 28% FiO2. Final Diagnoses: 1.Chronic respiratory failure with hypoxia and hypercapnia. 2.Chronic obstructive pulmonary disease. 3.Rheumatoid arthritis. 4.Hypertension. 5.Hypothyroidism. 6.Gastroesophageal reflux disease. 7.Paroxysmal atrial fibrillation. Discharge Medications And Instructions: 1.Continue all prior home medication. 2.Take prednisone 10 mg p.o. daily. 3.Spironolactone 25 mg p.o. daily. 4.Acetazolamide 250 mg p.o. daily. 5.Follow up with plastics tooling engineer next week per your appointment. 6.Follow up at my office and with Dr. Garcia in 2 weeks. 7.May return to work next week on Monday. Hospital Course: This is a 58-year-old male patient who went to Dr. Garcia's office for his first appointment for further evaluation of possibility of sleep apnea. While he was at his office, his ro om air oxygen saturation was 76%. The patient was sent to emergency room. His initial oxygen satura tion in the emergency room was 79% on room air. The patient was admitted to the hospital after isabel p was done in the emergency room. Dr. Garcia was consulted, and he recommended for patient to have a sleep study, which was done in the hospital and also recommended for patient to have oxygen as wel l as noninvasive ventilator at home. After all the arrangements completed, will be able to discharge him to go home today. He already has his oxygen with him in room and the patient tells me that as p er information that he got from [employer], the company that will provide him with this equipment notified him that today they will deliver his noninvasive ventilator at his house. I have asked nursing faiza caal to make sure to coordinate all that. The patient had some flare-up of his rheumatoid arthritis and responded well to IV steroid that was started in the emergency room and as of yesterday we changed t o oral prednisone, and we will go ahead and wean it off on outpatient basis. The patient was given a ppropriate paperwork to take it to plastics tooling engineer when he has his appointment. I do not want to see him on a chronic steroid therapy because of his prior history of perforated gastric ulcer. The patie nt was advised to take his prednisone a full stomach. He was also advised to quit smoking. REJI/MODL Voice ID: [id number] Report ID: [id number]
== END 2019-01-19 12:53 | disposition home or self-care (01) | DRG 189 ==
LOC: ER 16:37 → 4TH 21:35 → 2ND 01-18 18:30
PROVIDERS: ADMIT Internal Medicine; ATTEND Internal Medicine
DX: J96.22 Acute and chronic respiratory failure with hypercapnia (principal); J96.21 Acute and chronic respiratory failure with hypoxia; J44.9 Chronic obstructive pulmonary disease, unspecified; M06.9 Rheumatoid arthritis, unspecified; I10 Essential (primary) hypertension; K21.9 Gastro-esophageal reflux disease without esophagitis; E03.9 Hypothyroidism, unspecified; I48.0 Paroxysmal atrial fibrillation; F17.210 Nicotine dependence, cigarettes, uncomplicated
CPT/HCPCS: 36415; 70450; 71045; 71275; 80048; 80053; 81003; 81015; 82140; 82805; 83690; 83735; 83880; 84443; 84484; 85025; 85379; 87040; 93005; 94640; 94660; 94760; 94762; 96374; 99285; J2920; J2930; J3411; J7512; J7605; Q9967

== ENCOUNTER 2019-08-20 06:57 | Emergency (ER) | payer OTHER ==
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
[2019-08-20 09:15] VITALS: TEMP 98.2
[2019-08-20 09:16] VITALS: O2SAT 89
[2019-08-20 09:20] VITALS: BP 114/65
== END 2019-08-20 09:07 | disposition home or self-care (01) ==
LOC: ER 06:57
DX: G44.319 Acute post-traumatic headache, not intractable (principal); S80.812A Abrasion, left lower leg, initial encounter; V43.53XA Car driver injured in collision with pick-up truck in traffic accident, initial encounter; J44.9 Chronic obstructive pulmonary disease, unspecified; I10 Essential (primary) hypertension
CPT/HCPCS: 70450; 71045; 72125; 72170; 99285

== ENCOUNTER 2020-02-23 18:38 | Inpatient (IN) | payer OTHER ==
[2020-02-23] MEDS ORDERED: NA CHLORIDE 0.9% 4,000 ML ONE (19:08)
[2020-02-23] MEDS ORDERED: VANCOMYCIN 1 GM/VIAL ONE ×2 (19:08→23:14)
[2020-02-23] MEDS ORDERED: NA CHLORIDE 0.9% 250 ML ONE ×2 (19:08→23:14)
[2020-02-23 19:09] LABS: Basophils % 0.3 % (0-1.3); Hematocrit 50.3 % (39.6-49.0); RBC Red Blood Cell Count 6.97 M/uL (4.33-5.43)
[2020-02-23] MEDS ORDERED: WATER FOR INJ,STERILE 10 ML ONE (19:11)
[2020-02-23] MEDS ORDERED: METHYLPREDNISOLONE 125 MG INJ ONE (19:13)
[2020-02-23] MEDS ORDERED: LEVALBUTEROL 1.25 MG/3 ML NEB ONE (19:13)
[2020-02-23] MEDS ORDERED: IPRATROPIUM BROM 0.5MG/2.5ML ONE (19:13)
[2020-02-23 19:20] LABS: Protime INR 1.94
[2020-02-23 19:20] LABS: Arterial Blood Carboxyhemoglob 4.6 % (0-1.5); Blood Gas Oxyhemoglobin 92.8 % (94-97); Blood O2 Saturation 97.9 % (92-98.5)
[2020-02-23 19:36] LABS: Urine Blood TRACE (NEG); Urine Glucose NEGATIVE (NEG); Urine Protein 2+ (NEG); Urine Specific Gravity >1.030 (1.005-1.030)
[2020-02-23] MEDS ORDERED: PANTOPRAZOLE 40 MG INJ ONE (19:38)
--- NOTE | 2020-02-23 20:02 | RAD REPORT ---
EXAM DESCRIPTION: RAD - Chest Single View - 02/23/2020 7:50 pm CLINICAL HISTORY: COUGH Chest pain. COMPARISON: Chest Single View dated 08/20/2019; Chest Single View dated 01/16/2019; Chest Pa And Lat ( 2 Views) dated 12/14/2018; Chest Single View dated 06/30/2018 FINDINGS: Portable technique limits examination quality. Mild interstitial pulmonary edema suspected. The heart is moderately enlarged. Small right pleural ef fusion likely present.Right-sided venous catheter has tip in the SVC. IMPRESSION: Mild CHF versus volume overload suspected.
[2020-02-23] MEDS ORDERED: DIGOXIN 0.25 MG/ML AMP ONE (20:03)
[2020-02-23 20:06] LABS: Urine RBC <5 /HPF (NONE SEEN)
[2020-02-23 20:07] LABS: Urine Amorphous Sediment 3+ /HPF (NONE SEEN); Urine Bacteria >50 /HPF (NONE SEEN); Urine Culture Reflex Order NOT NEEDED; Urine Mucus 4+ /HPF (NONE SEEN)
[2020-02-23 20:11] LABS: Albumin 2.7 g/dL (3.4-5.0); Bilirubin Direct 1.2 mg/dL (0-0.2); Bilirubin Total 1.9 mg/dL (0.2-1.0); Magnesium 2.1 mg/dL (1.8-2.4); Protein, Total 6.8 g/dL (6.4-8.2)
[2020-02-23 20:15] LABS: Troponin (Emerg Dept Use Only) 1.02 ng/mL (0.0-0.045)
[2020-02-23] MEDS ORDERED: FUROSEMIDE 20 MG/ 2ML VIAL ONE ×3 (20:28→22:30)
[2020-02-23] MEDS ORDERED: METOPROLOL TARTRATE 5 MG/5 ML INJ IV ONE ×3 (20:29→22:39)
--- NOTE | 2020-02-23 20:29 | EDPHYS ---
Physician Documentation [facility] Name: Danyel Yu Jr Age: 59 yrs Sex: Male : 1960 Arrival Date: 02/23/2020 Time: 18:45 Bed 3 Private MD: ED Physician Yonny Martin HPI: 02/22 19:01 This 59 yrs old Male presents to ER via Wheelchair with complaints of Altered hannah Mental Status. 19:01 The patient presents with confusion, decreased mental status, decreased responsiveness. hannah Onset: The symptoms/episode began/occurred 1 day(s) ago. Possible causes: drug use, alcohol, low blood sugar, sepsis. Associated signs and symptoms: Pertinent positives: abdominal pain, confusion, lightheadedness, shortness of breath, weakness. Current symptoms: In the emergency department the patient's symptoms are unchanged from the initial presentation. Patient's baseline: Neuro: alert and fully oriented. It is unknown whether or not the patient has had similar symptoms in the past. Historical: - Allergies: 18:46 No Known Allergies; ca1 - PMHx: 18:46 COPD; home O2; Hypertension; Rheumatoid Arthritis; Thyroid problem; ca1 - PSHx: 18:46 Abdominal surgery; ca1 - Immunization history:: Adult Immunizations not up to date. - Social history:: Smoking status: Patient reports the use of cigarette tobacco products, smokes one pack cigarettes per day. ROS: 19:04 Constitutional: Positive for fatigue, malaise. hannah 19:04 Cardiovascular: Positive for palpitations. 19:04 Respiratory: Positive for shortness of breath. 19:04 Abdomen/GI: Positive for abdominal distension. 19:04 MS/extremity: Positive for swelling, of the right leg and left leg. 19:04 Skin: Positive for pallor. 19:04 Unable to obtain ROS due to patient's inability to understand questions. Exam: 19:05 Constitutional: The patient appears lethargic, in obvious distress, moderately hannah distressed. 19:05 Chest/axilla: Inspection: normal, Palpation: is normal. 19:05 Cardiovascular: Rate: tachycardic, Rhythm: regular, Pulses: Pulses are 2+ in bilateral radial, brachial, femoral, popliteal, posterior tibial and and dorsalis pedis arteries.. Heart sounds: normal, Edema: 4+ edema to level of left midcalf and right midcalf, JVD: is noted bilaterally, to 3 cm. 19:05 Respiratory: moderate respiratory distress is noted, Respirations: labored breathing, that is moderate, Breath sounds: decreased breath sounds, rhonchi, wheezin:05 Abdomen/GI: Inspection: distension, Bowel sounds: active, Palpation: soft, nontender, Liver: no appreciated palpable abnormalities, Hernia: not appreciated. 20:15 Abdomen/GI: Hernia: noted in the right inguinal area and right femoral area, hannah incarceration, is not appreciated, tenderness, is not appreciated, bowel sounds are appreciated on auscultation. 20:15 Musculoskeletal/extremity: Circulation is intact in all extremities. Sensation intact. DVT Exam: negative Homans' sign noted on exam, no appreciated bluish discoloration, pain, swelling, tenderness, erythema, increased warmth. 20:15 Skin: cellulitis, that is moderate, on the lateral aspect of right calf, right ankle, medial aspect of right calf, right lobo and anterior aspect of right ankle. Vital Signs: 18:46 BP 103 / 70; Pulse 145; Resp 21; Temp 97.8; Pulse Ox 69% on R/A; Weight 113.4 kg; ca1 Height 6 ft. 3 in. (190.50 cm); 18:57 BP 112 / 81; Pulse 133; Resp 23; Pulse Ox 100% on Non-rebreather mask; ss 20:06 BP 118 / 90; Pulse 133; Resp 26; Temp 98.3(C); Pulse Ox 100% on 40% BiPAP; wh 21:00 BP 106 / 93; Pulse 129; Resp 24; Temp 97.7; Pulse Ox 98% on 40% BiPAP; wh 18:46 Body Mass Index 31.25 (113.40 kg, 190.50 cm) ca1 Procedures: 21:23 Central Line: suclavian by dr alfaro, excellent placement. Peripheral line: by aseptic hannah technique a peripheral line was placed in the right external jugular vein. 02/23 08:11 Intubation: Ventilated with 100% NRB prior to procedure. 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 Intubated orally using #4 Glidescope with 8.0 mm ETT. was successful on first attempt. Ventilated with Ambu bag. Tube secured with ETT wilson at right side of mouth measured 23 cm at teeth. Placement verified by CXR, CO2 detector with (+) color change, auscultating bilateral breath sounds, O2 saturation after procedure was 100 %. Patient tolerated well. MDM: 02/22 18:47 Patient medically screened. hannah 19:07 Data reviewed: vital signs, nurses notes, lab test result(s), EKG, radiologic studies. hannah 21:09 Differential diagnosis: asthma, Bronchitis CHF exacerbation, Chronic Obstructive hannah Pulmonary Disease Myocardial Infarction pneumonia, pulmonary edema, Pulmonary Embolism Sepsis Unstable Angina. Antibiotic administration: cefepime, vancomycin. Differential Diagnosis: CVA, electrolyte abnormality, overdose, pneumonia, UTI, volume depletion. The patient's Wells Deep Vein Thrombosis Score was calculated as follows: Heart Rate >100 BPM (1.5 Pts) Imm/Surg in last 4 wks (1.5 Pts) Total Score: 3-6 Pts - Mod Risk. The patient's pulmonary embolism risk score was calculated as follows: the patients heart rate is greater than 100 beats per minute (1.5 Pts) patient has experienced immobilization or surgery in the last four weeks (1.5 Pts) Total Score: 3-6 points. This patient was found to be at moderate risk for a pulmonary embolism by using the Well's assessment criteria. Immunization status: Influenza vaccine: Not up to date. 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 Test interpretation: by ED physician or midlevel provider: ECG, plain radiologic studies. Counseling: I had a detailed discussion with the patient and/or guardian regarding: the historical points, exam findings, and any diagnostic results supporting the discharge/admit diagnosis, the presence of at least one elevated blood pressure reading (>120/80) during this emergency department visit, lab results, radiology results, the need for further work-up and treatment in the hospital. Medication response: albuterol nebulizer treatment(s) partially relieved the patient's wheezing. Physician consultation: Shi Nettles MD and will see patient in inpatient room, no fluids, lasix drip 10mg /hr. Other consultation: dr bai and dr bates. ED course: pt improved, hyperkalemia treated, icu orders written. 02/23 07:58 ED course: Notified by RT that ABG abnormal, shows ph 6.9, PCO2 121, spoke with Dr. lewis Singh who requests pt be intubated, is ER hold, but patient in ER, will intubate. . 02/22 18:54 Order name: Basic Metabolic Panel; Complete Time: 20:19 [facility] 02/22 18:54 Order name: CBC with Diff; Complete Time: 23:22 [facility] 02/22 18:54 Order name: LFT's; Complete Time: 20:19 [facility] 02/22 18:54 Order name: Magnesium; Complete Time: 20:19 [facility] 02/22 18:54 Order name: NT PRO-BNP; Complete Time: 20:19 [facility] 02/22 18:54 Order name: PT-INR; Complete Time: 19:46 [facility] 02/22 18:54 Order name: Troponin (emerg Dept Use Only); Complete Time: 20:19 [facility] 02/22 18:54 Order name: Blood Culture Adult (2) [facility] 02/22 18:54 Order name: Lactate; Complete Time: 19:46 [facility] 02/22 18:54 Order name: Procalcitonin; Complete Time: 19:46 [facility] 02/22 18:54 Order name: Lipase; Complete Time: 20:19 [facility] 02/22 18:54 Order name: ABG; Complete Time: 19:46 [facility] 02/22 18:54 Order name: AMMONIA; Complete Time: 19:46 [facility] 02/22 18:54 Order name: COVID-19; Complete Time: 23:22 [facility] 02/22 19:03 Order name: Type And Screen [facility] 02/22 19:19 Order name: Urine Dipstick--Ancillary (enter results); Complete Time: 19:46 [facility] 02/22 19:21 Order name: Urine Microscopic Only; Complete Time: 20:09 [facility] 02/22 19:21 Order name: Urine Culture [facility] 02/22 20:14 Order name: Ptt, Activated; Complete Time: 23:22 [facility] 02/22 21:15 Order name: TSH [facility] 02/22 22:22 Order name: Thyroid Stimulating Hormone; Complete Time: 23:22 [facility] 02/22 22:34 Order name: T4 Free; Complete Time: 23:22 [facility] 02/22 23:08 Order name: Lactate Sepsis 2 HR Follow-up; Complete Time: 23:22 [facility] 02/22 23:21 Order name: Manual Differential; Complete Time: 23:22 [facility] 02/23 00:20 Order name: Creatinine; Complete Time: 07:43 [facility]MS 02/23 00:20 Order name: Troponin I; Complete Time: 07:43 [facility]MS 02/23 00:20 Order name: Digoxin Level; Complete Time: 07:43 [facility]MS 02/23 00:20 Order name: Vancomycin Level Trough; Complete Time: 07:43 [facility]MS 02/23 02:45 Order name: Basic Metabolic Panel; Complete Time: 07:43 [facility]MS 02/23 02:45 Order name: Phosphorus; Complete Time: 07:43 [facility]MS 02/22 18:54 Order name: XRAY Chest (1 view); Complete Time: 20:09 hannah 02/22 19:01 Order name: BIPAP [facility] 02/22 19:03 Order name: CT Head Brain wo Cont [facility] 02/22 20:25 Order name: CT Chest Abdomen Pelvis W/O Contrast [facility] 02/22 20:29 Order name: US Extremity Venous W Compression Lee [facility] 02/23 02:45 Order name: Magnesium; Complete Time: 07:43 EDMS 02/23 03:05 Order name: Prewarm Antibody Screening EDND 02/23 03:05 Order name: Antibody Identification EDMS 02/23 04:26 Order name: Troponin I; Complete Time: 07:43 EDMS 02/23 04:26 Order name: PTT, Activated Partial Thromb; Complete Time: 07:43 EDMS 02/23 06:29 Order name: CBC with Automated Diff EDMS 02/23 06:39 Order name: Basic Metabolic Panel; Complete Time: 07:43 EDMS 02/23 06:39 Order name: Liver (Hepatic) Function; Complete Time: 07:43 EDMS 02/23 06:39 Order name: NT PRO-BNP; Complete Time: 07:43 EDMS 02/23 07:55 Order name: RAD; Complete Time: 07:59 EDMS 02/23 08:06 Order name: US EDMS 02/23 08:08 Order name: XRAY Chest (1 view) rn 02/23 08:37 Order name: ABG Arterial Blood Gas EDMS 02/23 08:46 Order name: CBC Smear Scan EDMS 02/23 08:55 Order name: PTT, Activated Partial Thromb EDMS 02/23 08:58 Order name: CT EDMS 02/23 09:01 Order name: CT EDMS 07/20 09:20 Order name: RAD EDMS 02/23 10:45 Order name: ABG Arterial Blood Gas [facility] 02/22 18:54 Order name: EKG; Complete Time: 18:55 [facility] 02/22 18:54 Order name: Cardiac monitoring; Complete Time: 19:00 [facility] 02/22 18:54 Order name: EKG - Nurse/Tech; Complete Time: 19:34 [facility] 02/22 18:54 Order name: IV Saline Lock; Complete Time: 19:00 [facility] 02/22 18:54 Order name: Labs collected and sent; Complete Time: 19:00 [facility] 02/22 18:54 Order name: O2 Per Protocol; Complete Time: 19:01 [facility] 02/22 18:54 Order name: O2 Sat Monitoring; Complete Time: 19:01 [facility] 02/22 18:54 Order name: Sadler; Complete Time: 18:56 [facility] 02/22 19:21 Order name: Urine Dipstick-Ancillary (obtain specimen); Complete Time: 19:22 [facility] 02/22 20:38 Order name: CONS Physician Consult [facility] 02/22 20:38 Order name: CONS Physician Consult [facility] 02/22 20:38 Order name: CONS Physician Consult [facility] Administered Medications: 02/22 19:02 Drug: NS 0.9% (30 ml/kg) 30 ml/kg Route: IV; Rate: bolus; Site: right antecubital; ca1 21:25 Follow up: Response: No adverse reaction; IV Status: Completed infusion 19:15 Drug: vancoMYCIN 1 grams Route: IVPB; Infused Over: 2 hrs; Site: right antecubital; sv 21:25 Follow up: Response: No adverse reaction; IV Status: Completed infusion 19:15 Drug: Cefepime 2 grams Route: IVPB; Rate: 200 ml/hr; Infused Over: 30 mins; Site: right sv jugular; 21:24 Follow up: Response: No adverse reaction; IV Status: Completed infusion 19:16 Drug: SOLU-Medrol 125 mg Route: IVP; Site: right hand; sv 21:25 Follow up: Response: No adverse reaction 19:31 Drug: ProTONIX 40 mg Route: IVP; Site: right forearm; rv 21:24 Follow up: Response: No adverse reaction 19:35 Drug: AtroVENT Aerosol 0.5 mg {Note: Given by RT thru BIPAP.} Route: Inhalation; :27 Follow up: Response: No adverse reaction 19:36 Drug: Xopenex 3.75 mg {Note: Given by RT thru BIPAP.} Route: Inhalation; : Follow up: Response: No adverse reaction 20:00 Drug: Digoxin 0.5 mg Route: IVP; Site: right antecubital; 21:24 Follow up: Response: No adverse reaction; No change in condition 20:20 CANCELLED (Duplicate Order): Lasix 20 mg IVP once [facility] 20:30 Drug: Lopressor 2.5 mg Route: IVP; Site: right hand; 21:23 Follow up: Response: No adverse reaction; No change in condition 20:55 Drug: Calcium Gluconate 1 grams Route: IVPB; Infused Over: 20 mins; Site: right wh subclavian; :23 Follow up: Response: No adverse reaction; IV Status: Completed infusion 20:55 Drug: Sodium Bicarbonate 1 amp Route: IVP; Site: right subclavian; :22 Follow up: Response: No adverse reaction 20:57 Drug: Lasix 40 mg Route: IVP; Site: right antecubital; :22 Follow up: Response: No adverse reaction 21:00 Drug: D50W 50 ml Route: IVP; Site: right subclavian; :22 Follow up: Response: No adverse reaction 21:02 Drug: Insulin Regular Human 10 units {Co-Signature: rv (Philip Pollock RN).} Route: IVP; Site: right hand; : Follow up: Response: No adverse reaction 21:03 Drug: Lopressor 2.5 mg Route: IVP; Site: right antecubital; :23 Follow up: Response: No adverse reaction; No change in condition 21:35 Drug: Lopressor 2.5 mg Route: IVP; Site: right antecubital; 02/23 02:27 Follow up: Response: No adverse reaction; No change in condition 02/22 22:13 Drug: Lopressor 2.5 mg Route: IVP; Site: right antecubital; 02/23 01:05 Follow up: Response: No adverse reaction; No change in condition 02/22 22:40 Drug: Lopressor 2.5 mg Route: IVP; Site: right subclavian; 02/23 01:05 Follow up: Response: No adverse reaction; No change in condition 02/22 23:20 Drug: Heparin (OH-Bolus No thrombolytic) - HEParin 60 units/kg {Co-Signature: rv (Philip Pollock RN).} Route: IVP; Site: right subclavian; 02/23 01:06 Follow up: Response: No adverse reaction 02/22 23:20 Drug: Lasix 20 mg Route: IVP; Site: right subclavian; 02/23 01:05 Follow up: Response: No adverse reaction 02/22 23:25 Drug: Lopressor 2.5 mg Route: IVP; Site: right antecubital; 02/23 01:04 Follow up: Response: No adverse reaction; No change in condition 02/22 23:26 Drug: Heparin (OH Drip) 12 units/kg/hr - (HEParin 21470 units, D5W 500 ml) {Co-Signature: rv (Philip Pollock RN).} Route: IV; Rate: calculated rate; Site: right subclavian; 02/23 01:06 Follow up: Response: No adverse reaction; IV Status: Infusion continued upon admission 02/22 23:29 Drug: Aspirin 81 mg Route: PO; 02/23 01:06 Follow up: Response: No adverse reaction 08:01 Drug: Etomidate 20 mg Route: IVP; Site: right subclavian; sv 08:01 Drug: Rocuronium 50 mg Route: IVP; Site: right subclavian; sv Disposition: 02/22 21:24 Critical Care:. hannah Disposition: 02/23/20 20:28 Hospitalization ordered by George Singh for Inpatient Admission. Preliminary diagnosis are Respiratory failure, unspecified with hypercapnia, Severe sepsis without septic shock, Acute kidney failure, Atrial fibrillation and flutter, Inguinal hernia, Hyperkalemia, Edema, unspecified, Cellulitis and acute lymphangitis of other parts of limb, Unspecified cirrhosis of liver, Elevated white blood cell count, Chronic obstructive pulmonary disease with (acute) exacerbation, Non-ST elevation (NSTEMI) myocardial infarction, Acute embolism and thrombosis of other specified deep vein of left lower extremity - left greater saphenous. - Bed requested for Intensive Care Unit. - Status is Inpatient Admission. sv - Condition is Serious. - Problem is new. - Symptoms have improved. Critical care time excluding procedures: 21:24 Critical care time: Bedside Care: 50 minutes, Consultation: 20 minutes, Family hannah Intervention: 10 minutes. Total time: 80 minutes Signatures: Dispatcher [employer] EDMS Gregoria Sanchez RN RN sv Webb, Martha RN Yonny Driver MD MD cha Nieto, Roman, MD MD rn Page, Corey, PA PA cp Lemos, Kalpana mt [facility], [facility], AmiKena mw2 Philip Pollock RN RN rv Liat Guillen RN RN ca1 Philip Pollock RN rv Corrections: (The following items were deleted from the chart) 20:20 20:10 Lasix 20 mg IVP once ordered. hannah hannah 20:36 19:04 Chest Abdomen Pelvis W Con+CT.RAD.BRZ ordered. EDND EDND 21:09 20:28 Hospitalization Ordered by George Singh MD for Inpatient Admission. Preliminary hannah diagnosis is Respiratory failure, unspecified with hypercapnia; Severe sepsis without septic shock; Acute kidney failure; Atrial fibrillation and flutter; Inguinal hernia; Hyperkalemia; Edema, unspecified; Cellulitis and acute lymphangitis of other parts of limb; Unspecified cirrhosis of liver; Elevated white blood cell count; Chronic obstructive pulmonary disease with (acute) exacerbation. Bed requested for Intensive Care Unit. Status is Inpatient Admission. Condition is Serious. Problem is new. Symptoms have improved. hannah 21:11 21:09 02/23/2020 20:28 Hospitalization Ordered by George Singh MD for Inpatient Admission. Preliminary diagnosis is Respiratory failure, unspecified with hypercapnia; Severe sepsis without septic shock; Acute kidney failure; Atrial fibrillation and flutter; Inguinal hernia; Hyperkalemia; Edema, unspecified; Cellulitis and acute lymphangitis of other parts of limb; Unspecified cirrhosis of liver; Elevated white blood cell count; Chronic obstructive pulmonary disease with (acute) exacerbation; Non-ST elevation (NSTEMI) myocardial infarction. Bed requested for Intensive Care Unit. Status is Inpatient Admission. Condition is Serious. Problem is new. Symptoms have improved. hannah 21:29 21:11 02/23/2020 20:28 Hospitalization Ordered by George Singh MD for Inpatient hannah Admission. Preliminary diagnosis is Respiratory failure, unspecified with hypercapnia; Severe sepsis without septic shock; Acute kidney failure; Atrial fibrillation and flutter; Inguinal hernia; Hyperkalemia; Edema, unspecified; Cellulitis and acute lymphangitis of other parts of limb; Unspecified cirrhosis of liver; Elevated white blood cell count; Chronic obstructive pulmonary disease with (acute) exacerbation; Non-ST elevation (NSTEMI) myocardial infarction. Bed requested for [facility] ER HOLD. Status is Inpatient Admission. Condition is Serious. Problem is new. Symptoms have improved. 02/23 09:37 02/22 21:29 02/23/2020 20:28 Hospitalization Ordered by George Singh MD for Inpatient tx Admission. Preliminary diagnosis is Respiratory failure, unspecified with hypercapnia; Severe sepsis without septic shock; Acute kidney failure; Atrial fibrillation and flutter; Inguinal hernia; Hyperkalemia; Edema, unspecified; Cellulitis and acute lymphangitis of other parts of limb; Unspecified cirrhosis of liver; Elevated white blood cell count; Chronic obstructive pulmonary disease with (acute) exacerbation; Non-ST elevation (NSTEMI) myocardial infarction; Acute embolism and thrombosis of other specified deep vein of left lower extremity - left greater saphenous. Bed requested for [facility] ER HOLD. Status is Inpatient Admission. Condition is Serious. Problem is new. Symptoms have improved. [facility] 02/23 11:48 09:37 02/23/2020 20:28 Hospitalization Ordered by George Singh MD for Inpatient Admission. Preliminary diagnosis is Respiratory failure, unspecified with hypercapnia; Severe sepsis without septic shock; Acute kidney failure; Atrial fibrillation and flutter; Inguinal hernia; Hyperkalemia; Edema, unspecified; Cellulitis and acute lymphangitis of other parts of limb; Unspecified cirrhosis of liver; Elevated white blood cell count; Chronic obstructive pulmonary disease with (acute) exacerbation; Non-ST elevation (NSTEMI) myocardial infarction; Acute embolism and thrombosis of other specified deep vein of left lower extremity - left greater saphenous. Bed requested for Intensive Care Unit. Status is Inpatient Admission. Condition is Serious. Problem is new. Symptoms have improved. mt
--- NOTE | 2020-02-23 20:29 | ER ---
Nurse's Notes [facility] Name: Danyel Yu Jr Age: 59 yrs Sex: Male : 1960 Arrival Date: 02/23/2020 Time: 18:45 Bed 3 Private MD: Diagnosis: Respiratory failure, unspecified with hypercapnia;Severe sepsis without septic shock;Acute kidney failure;Atrial fibrillation and flutter;Inguinal hernia;Hyperkalemia;Edema, unspecified;Cellulitis and acute lymphangitis of other parts of limb;Unspecified cirrhosis of liver;Elevated white blood cell count;Chronic obstructive pulmonary disease with (acute) exacerbation;Non-ST elevation (NSTEMI) myocardial infarction;Acute embolism and thrombosis of other specified deep vein of left lower extremity-left greater saphenous Presentation: 02/22 18:46 Chief complaint: states that she came home at 1500 today and found patient with ca1 altered mental status, "not making sense". Last seen normal at 0800 this morning. Coronavirus screen: Patient reports a cough. Patient reports shortness of breath or difficulty breathing. Patient denies measured and/or subjective temperature greater than 100.4F prior to today's visit. Patient denies travel on a cruise ship or to a country the [facility] currently lists as an affected area. Patient denies contact with known and/or suspected case of COVID-19. Ebola Screen: Patient denies exposure to infectious person. Patient denies travel to an Ebola-affected area in the 21 days before illness onset. Initial Sepsis Screen: Does the patient meet any 2 criteria? RR > 20 per min. Altered Mental Status. HR > 90 bpm. Yes Does the patient have a suspected source of infection? Yes: Skin breakdown/wound. Risk Assessment: Do you want to hurt yourself or someone else? Unable to obtain. Onset of symptoms was February 23, 2020. 18:46 Acuity: RIVERA 1 ca1 18:46 Method Of Arrival: Wheelchair ca1 Triage Assessment: 18:46 General: Appears distressed, uncomfortable, Behavior is cooperative, flat. Pain: Denies sv pain. Neuro: Level of Consciousness is obeys commands, confused, lethargic, Oriented to person, Gait is steady, with standby assist. Cardiovascular: Edema pitting to waist, pubic area, left upper thigh, left lower thigh, left knee, left midcalf, left ankle, left foot, left toes, right upper thigh, right lower thigh, right knee, right midcalf, right ankle, right foot and right toes Rhythm is sinus tachycardia. Respiratory: Airway is patent Respiratory effort is shallow, Respiratory pattern is tachypnea. GI: Abdomen is round distended, noted to have ascites. : Swelling noted on scrotum. Derm: Wound noted left lobo and anterior aspect of left ankle Wound is multiple open wounds to the LLE, unstageable, irregular shaped with drainage. Discoloration and skin alterations to BLE. Musculoskeletal: Range of motion: intact in all extremities, Swelling present in abdomen, pelvis, right leg and left leg. Historical: - Allergies: 18:46 No Known Allergies; ca1 - PMHx: 18:46 COPD; home O2; Hypertension; Rheumatoid Arthritis; Thyroid problem; ca1 - PSHx: 18:46 Abdominal surgery; ca1 - Immunization history:: Adult Immunizations not up to date. - Social history:: Smoking status: Patient reports the use of cigarette tobacco products, smokes one pack cigarettes per day. Screenin:07 Abuse screen: Denies threats or abuse. Denies injuries from another. Nutritional wh screening: No deficits noted. Tuberculosis screening: No symptoms or risk factors identified. Fall Risk Gait- Mental Status-. Assessment: 19:05 Reassessment: Dr Tadeo at bedside to place central line. sv 19:05 General: Appears distressed, unkempt, Behavior is drowsy, AMS. Pain: Unable to use pain wh scale. Patient is disoriented. Neuro: Level of Consciousness is confused, lethargic, Oriented to person. Cardiovascular: Heart tones S1 S2 Edema is 3+ to left midcalf, left ankle, left foot, right midcalf, right ankle and right foot Rhythm is sinus tachycardia. Respiratory: Reports shortness of breath Respiratory effort is labored, Respiratory pattern is tachypnea Patient placed on BiPAP: FiO2%: 40 Breath sounds are diminished Breath sounds with rhonchi. GI: Abdomen is round noted to have ascites. : 3-way catheter in place Swelling noted on scrotum. EENT: No signs and/or symptoms were reported regarding the EENT system. Derm: Skin with poor turgor. Musculoskeletal: Range of motion: intact in all extremities. 19:33 Reassessment: lab results reported to Yonny Page PA, who notified of sg results. Vital Signs: 18:46 BP 103 / 70; Pulse 145; Resp 21; Temp 97.8; Pulse Ox 69% on R/A; Weight 113.4 kg; ca1 Height 6 ft. 3 in. (190.50 cm); 18:57 BP 112 / 81; Pulse 133; Resp 23; Pulse Ox 100% on Non-rebreather mask; ss 20:06 BP 118 / 90; Pulse 133; Resp 26; Temp 98.3(C); Pulse Ox 100% on 40% BiPAP; wh 21:00 BP 106 / 93; Pulse 129; Resp 24; Temp 97.7; Pulse Ox 98% on 40% BiPAP; wh 18:46 Body Mass Index 31.25 (113.40 kg, 190.50 cm) ca1 ED Course: 18:40 Inserted saline lock: 18 gauge in right EJ, using aseptic technique. Blood collected. ca1 18:45 Patient arrived in ED. ca1 18:46 Arm band placed on left wrist. ca1 18:47 Yonny Martin MD is Attending Physician. hannah 18:48 Triage completed. ca1 18:49 Inserted saline lock: 18 gauge in right wrist, using aseptic technique. ca1 18:49 Inserted saline lock: 18 gauge in right antecubital area, using aseptic technique. ca1 Blood collected. 18:57 Patient has correct armband on for positive identification. Bed in low position. Call ss light in reach. Side rails up X2. Adult w/ patient. municipal services manager on. Pulse ox on. NIBP on. 18:57 Sadler cath inserted, using sterile technique, 16 Fr., by note taker, balloon inflated, to ss gravity drainage, Patient tolerated well. Oxygen administration via non-rebreather mask \\T\\ 15L/min. 19:20 Assisted provider with central line placement. Set up central line tray. Triple lumen wh line placed in right subclavian. Line placed by Dani Tadeo MD Placement verified by CXR, blood return, Dressed with Tegaderm, Patient tolerated well. 19:24 Philip Pollock RN is Primary Nurse. rv 19:29 BIPAP Sent. sv 19:32 Philip Pollock RN is Primary Nurse. rv 19:34 Meg Armendariz is Primary Nurse. wh 19:36 Notified ED physician of a critical lab result(s). Lac 2.7. sg 19:50 XRAY Chest (1 view) In Process Unspecified. EDMS 20:25 George Singh MD is Hospitalizing Provider. hannah 21:19 Patient admitted, IV remains in place. wh 21:38 Ultrasound completed. Patient tolerated well. Notified ED Physician kerwin. sg3 02/23 10:25 Primary Nurse role handed off by Mge Armendariz 10:25 Gregoria Sanchez, VIDHI is Primary Nurse. sv Administered Medications: 02/22 19:02 Drug: NS 0.9% (30 ml/kg) 30 ml/kg Route: IV; Rate: bolus; Site: right antecubital; ca1 21:25 Follow up: Response: No adverse reaction; IV Status: Completed infusion 19:15 Drug: vancoMYCIN 1 grams Route: IVPB; Infused Over: 2 hrs; Site: right antecubital; sv 21:25 Follow up: Response: No adverse reaction; IV Status: Completed infusion 19:15 Drug: Cefepime 2 grams Route: IVPB; Rate: 200 ml/hr; Infused Over: 30 mins; Site: right sv jugular; 21:24 Follow up: Response: No adverse reaction; IV Status: Completed infusion 19:16 Drug: SOLU-Medrol 125 mg Route: IVP; Site: right hand; sv 21:25 Follow up: Response: No adverse reaction 19:31 Drug: ProTONIX 40 mg Route: IVP; Site: right forearm; rv 21:24 Follow up: Response: No adverse reaction 19:35 Drug: AtroVENT Aerosol 0.5 mg {Note: Given by RT thru BIPAP.} Route: Inhalation; wh 21:27 Follow up: Response: No adverse reaction 19:36 Drug: Xopenex 3.75 mg {Note: Given by RT thru BIPAP.} Route: Inhalation; wh 21:27 Follow up: Response: No adverse reaction 20:00 Drug: Digoxin 0.5 mg Route: IVP; Site: right antecubital; wh 21:24 Follow up: Response: No adverse reaction; No change in condition 20:20 CANCELLED (Duplicate Order): Lasix 20 mg IVP once hannah 20:30 Drug: Lopressor 2.5 mg Route: IVP; Site: right hand; wh 21:23 Follow up: Response: No adverse reaction; No change in condition 20:55 Drug: Calcium Gluconate 1 grams Route: IVPB; Infused Over: 20 mins; Site: right wh subclavian; :23 Follow up: Response: No adverse reaction; IV Status: Completed infusion 20:55 Drug: Sodium Bicarbonate 1 amp Route: IVP; Site: right subclavian; :22 Follow up: Response: No adverse reaction 20:57 Drug: Lasix 40 mg Route: IVP; Site: right antecubital; :22 Follow up: Response: No adverse reaction 21:00 Drug: D50W 50 ml Route: IVP; Site: right subclavian; : Follow up: Response: No adverse reaction 21:02 Drug: Insulin Regular Human 10 units {Co-Signature: farheen (Philip Pollock RN).} Route: IVP; Site: right hand; : Follow up: Response: No adverse reaction 21:03 Drug: Lopressor 2.5 mg Route: IVP; Site: right antecubital; :23 Follow up: Response: No adverse reaction; No change in condition :35 Drug: Lopressor 2.5 mg Route: IVP; Site: right antecubital; 02/23 02:27 Follow up: Response: No adverse reaction; No change in condition 02/22 22:13 Drug: Lopressor 2.5 mg Route: IVP; Site: right antecubital; 02/23 01:05 Follow up: Response: No adverse reaction; No change in condition 02/22 22:40 Drug: Lopressor 2.5 mg Route: IVP; Site: right subclavian; 02/23 01:05 Follow up: Response: No adverse reaction; No change in condition 02/22 23:20 Drug: Heparin ([place]-Bolus No thrombolytic) - HEParin 60 units/kg {Co-Signature: farheen (Philip Pollock RN).} Route: IVP; Site: right subclavian; 02/23 01:06 Follow up: Response: No adverse reaction 02/22 23:20 Drug: Lasix 20 mg Route: IVP; Site: right subclavian; 02/23 01:05 Follow up: Response: No adverse reaction 02/22 23:25 Drug: Lopressor 2.5 mg Route: IVP; Site: right antecubital; 02/23 01:04 Follow up: Response: No adverse reaction; No change in condition 02/22 23:26 Drug: Heparin ([place] Drip) 12 units/kg/hr - (HEParin 04386 units, D5W 500 ml) {Co-Signature: rv (Philip Pollock RN).} Route: IV; Rate: calculated rate; Site: right subclavian; 02/23 01:06 Follow up: Response: No adverse reaction; IV Status: Infusion continued upon admission 02/22 23:29 Drug: Aspirin 81 mg Route: PO; 02/23 01:06 Follow up: Response: No adverse reaction 08: Drug: Etomidate 20 mg Route: IVP; Site: right subclavian; 08:01 Drug: Rocuronium 50 mg Route: IVP; Site: right subclavian; sv Outcome: 02/22 20:28 Decision to Hospitalize by Provider. hannah 21:19 Admitted to ER Hold. Please see [facility] for further documentation. 21:19 Condition: stable 21:19 Instructed on the need for admit. 02/23 11:48 Patient left the ED. sv Signatures: Dispatcher [employer] Gregoria Squires, RN VIDHI Portillo Nielsen RN RN sg Anderson, Corey, MD MD cha Smirch, Shelby, RN RN Meg Armendariz Dorcas Mcdowell 3 Philip Pollock RN RN rv Acob, Cheryl, RN RN ca1 Ronaldo Vicente RN rv
[2020-02-23] MEDS ORDERED: SODIUM BICARB 50 MEQ/50ML VIAL ONE (20:45)
[2020-02-23] MEDS ORDERED: D50W 25 GM/50 ML SYRINGE/VIAL IV ONE (20:45)
[2020-02-23] MEDS ORDERED: INSULIN -REGULAR HUMAN 50 UNIT/0.5 ML ML ONE (20:45)
[2020-02-23] MEDS ORDERED: CALCIUM GLUCONATE 1 GM IVPB 1 GM/50 ML BAG IV ONE (20:46)
[2020-02-23] MEDS ORDERED: IPRATROPIUM BROM 0.5MG/2.5ML NEB PRN (21:55)
[2020-02-23] MEDS ORDERED: ONDANSETRON 4 MG/2 ML VIAL IV PRN (21:55)
[2020-02-23] MEDS ORDERED: CEFEPIME 2 GM VIAL IV SCH (21:55)
[2020-02-23] MEDS ORDERED: ACETAMINOPHEN 500 MG TAB PO PRN (21:55)
[2020-02-23] MEDS ORDERED: SODIUM CHLORIDE 0.9% 10ML INJ IV PRN (21:55)
[2020-02-23] MEDS: DIGOXIN 0.25 MG/ML AMP IV SCH (21:55)
[2020-02-23] MEDS ORDERED: VANCOMYCIN/NS 1 gm 1 GM/250 ML BAG IVPB SCH (21:55)
[2020-02-23] MEDS ORDERED: NA CHLORIDE 0.9% 1,000 ML IV SCH (22:00)
[2020-02-23] MEDS ORDERED: HEPARIN/D5W 25,000 UNIT/500 ML BAG IV SCH (22:00)
[2020-02-23] MEDS ORDERED: FUROSEMIDE 100 MG in NA CHLORIDE 0.9% 90 ML IV SCH (22:00)
[2020-02-23 22:21] LABS: Thyroid Stimulating Hormone 8.62 uIU/mL (0.360-3.740)
[2020-02-23] MEDS ORDERED: ASPIRIN 81 MG CHEWABLE TABLET ONE (22:30)
[2020-02-23] MEDS ORDERED: HEPARIN 5000 UNIT/ML 1 ML VIAL ONE (22:30)
[2020-02-23] MEDS ORDERED: NA CHLORIDE 0.9% 1,000 ML ONE (23:06)
[2020-02-23 23:20] LABS: Anisocytosis 2+; Blood Morphology Comment NOTED (NOT SEEN); Hypochromasia 1+; Platelet Estimate ADEQ; Polychromasia 2+
[2020-02-23] MEDS ORDERED: VANCOMYCIN/NS 1 gm 1 GM/250 ML BAG IVPB ONE (23:45)
[2020-02-23] MEDS ORDERED: FUROSEMIDE 100 MG/10 ML VIAL IV ONE (23:48)
[2020-02-23] MEDS ORDERED: NA CHLORIDE 0.9% 100 ML IV ONE (23:48)
[2020-02-24 00:17] LABS: Digoxin Level 1.7 ng/mL (0.80-2.00)
[2020-02-24 00:20] LABS: Troponin I 1.06 ng/mL (0.0-0.045)
[2020-02-24] MEDS: METHYLPREDNISOLONE 40 MG INJ IV SCH ×3 (01:00→17:03)
[2020-02-24] MEDS ORDERED: METHYLPREDNISOLONE 40 MG INJ ONE ×2 (01:38→07:31)
[2020-02-24] MEDS: LEVALBUTEROL 1.25 MG/3 ML NEB NEB SCH ×4 (02:00→20:30)
[2020-02-24 02:42] LABS: Phosphorus 7.4 mg/dL (2.5-4.9)
[2020-02-24 02:44] LABS: Potassium 5.7 mmol/L (3.5-5.1)
[2020-02-24] MEDS ORDERED: D50W 25 GM/50 ML SYRINGE/VIAL IV ONE (03:18)
[2020-02-24] MEDS ORDERED: ALBUTEROL 2.5 MG/3 ML NEB SOL NEB ONE (03:18)
[2020-02-24] MEDS ORDERED: D50W 25 GM/50 ML SYRINGE/VIAL IV PRN (03:18)
[2020-02-24] MEDS ORDERED: GLUCAGON 1 MG/VIAL IM PRN (03:18)
[2020-02-24] MEDS ORDERED: INSULIN -REGULAR HUMAN 50 UNIT/0.5 ML ML IV ONE (03:20)
[2020-02-24] MEDS ORDERED: DIGOXIN 0.25 MG/ML AMP ONE (03:33)
[2020-02-24] MEDS ORDERED: ALBUTEROL 2.5 MG/3 ML NEB SOL ONE (03:35)
[2020-02-24] MEDS: DIGOXIN 0.25 MG/ML AMP IV SCH (03:42)
[2020-02-24] MEDS ORDERED: HEPARIN 5000 UNIT/ML 1 ML VIAL IV SCH (05:00)
[2020-02-24 06:28] LABS: Absolute Lymphocytes (CBC) 0.5 K/uL (0.7-4.9); Basophils % 0.3 % (0-1.3); Hematocrit 47.8 % (39.6-49.0); MPV 8.1 fL (7.6-11.3); RBC Red Blood Cell Count 6.46 M/uL (4.33-5.43)
[2020-02-24 06:34] LABS: Albumin 2.4 g/dL (3.4-5.0); Bilirubin Direct 0.8 mg/dL (0-0.2); Bilirubin Total 1.3 mg/dL (0.2-1.0); Potassium 5.2 mmol/L (3.5-5.1); Protein, Total 6.1 g/dL (6.4-8.2)
[2020-02-24] MEDS ORDERED: NA CHLORIDE 0.9% 1,000 ML ONE (07:32)
[2020-02-24] MEDS ORDERED: PANTOPRAZOLE 40 MG INJ ONE (07:32)
--- NOTE | 2020-02-24 07:55 | RAD REPORT ---
EXAM DESCRIPTION: Keshia Single View02/24/2020 6:52 am CLINICAL HISTORY: Chest pain COMPARISON: February 23, 2020 FINDINGS: Small to moderate right and small left pleural effusions are present right basilar atelect asis. Mild interstitial pulmonary edema suspected. The heart remains enlarged PICC line in place IMPRESSION: Mild CHF
[2020-02-24] MEDS ORDERED: ETOMIDATE 20 MG/10 ML VIAL IV ONE (08:00)
[2020-02-24] MEDS ORDERED: PNEUMOCOCCAL VACCINE 0.5 ML IMVAC ONE (08:00)
[2020-02-24] MEDS ORDERED: ROCURONIUM 50 MG/5 ML VIAL IV ONE (08:01)
--- NOTE | 2020-02-24 08:05 | RAD REPORT ---
EXAM DESCRIPTION: USExtrem Venous W Compress Bil02/23/2020 9:36 pm CLINICAL HISTORY: Bilateral leg swelling COMPARISON: none FINDINGS: The right and left common femoral, superficial femoral, and popliteal veins bilaterally ar e compressible and demonstrate augmentation. Doppler demonstrates good flow. Echogenic material consistent with acute thrombus is present throughout the left greater saphenous ve in. The thrombus begins approximately 1 centimeter from the junction of the greater saphenous vein wi th common femoral vein IMPRESSION: No evidence of deep venous thrombosis involving either lower extremity. Extensive acute thrombus left greater saphenous vein
[2020-02-24 08:36] LABS: Arterial Blood Carboxyhemoglob 2.5 % (0-1.5); Blood O2 Saturation 88.9 % (92-98.5)
[2020-02-24 08:45] LABS: Blood Morphology Comment NOTED (NOT SEEN); Platelet Estimate ADEQ; Urine White Blood Cell Casts OK
[2020-02-24 08:46] LABS: Anisocytosis 1+; Poikilocytosis 1+; Polychromasia 1+
--- NOTE | 2020-02-24 08:58 | RAD REPORT ---
EXAM DESCRIPTION: CT - Head Brain Wo Cont - 02/24/2020 2:27 am ADDENDUM #1 Amended report: Subtle decreased attenuation left temporal parietal region. IMPRESSION: Findings suspicious for subacute ischemic change left temporal parietal region. Correlat ion with magnetic resonance study suggested for further characterization. Electronically signed by: Silvia Person MD 02/23/2020 11:32 PM CDT End of Addendum EXAM DESCRIPTION: Head Brain Wo Cont CLINICAL HISTORY: 59 years Male MENTAL STATUS CHANGE COMPARISON: August 20, 2019. TECHNIQUE: Images were obtained in axial, sagittal, and coronal planes. This exam was performed according to our departmental dose-optimization program which includes use of Automated Exposure Control, adjustment of the mA and/or kV according to patient size and/or use o f iterative reconstruction technique. FINDINGS: Ventricular system appears normal. No abnormal areas of increased attenuation seen. No extra-axial fluid collections noted. No evidence for skull fracture. Symmetric aeration mastoid air cells bilaterally. Unremarkable parana evan sinuses. IMPRESSION: No acute intracranial abnormality. No evidence for hemorrhage, mass lesion, or large acu te infarction. Electronically signed by: Silvia Person MD 02/23/2020 10:42 PM CDT Due to temporary technical issues with the PACS/Fluency reporting system, reports are being signed by the in house radiologist without review as a courtesy to ensure prompt reporting. The interpreting r adiologist is fully responsible for the content of the report.
[2020-02-24] MEDS ORDERED: VANCOMYCIN 2 GM in NA CHLORIDE 0.9% 500 ML IVPB SCH ×5 (09:00→21:00)
[2020-02-24] MEDS ORDERED: PANTOPRAZOLE 40 MG INJ IVP SCH (09:00)
[2020-02-24] MEDS ORDERED: ASPIRIN EC 81 MG TAB PO SCH (09:00)
[2020-02-24] MEDS ORDERED: METOPROLOL TAR 50 MG TAB PO SCH (09:00)
[2020-02-24] MEDS ORDERED: CEFEPIME 2 GM VIAL IV SCH (09:00)
--- NOTE | 2020-02-24 09:00 | RAD REPORT ---
EXAM DESCRIPTION: CT - Chest Abd Pelvis Wo Con - 02/24/2020 2:26 am CLINICAL HISTORY: 59-year-old male with hernia and renal failure with abdominal distention, dyspnea and pain. COMPARISON: 07/03/2018. TECHNIQUE: CT of the chest, abdomen and pelvis was performed without intravenous or oral contrast. M ultiplanar reformatted images were provided. This exam was performed according to our departmental do se optimization program which includes use of automated exposure control, adjustment of the mA and/or kV according to patient size and/or use of iterative reconstruction technique. FINDINGS: Evaluation of solid organ pathology is limited secondary to lack of intravenous contrast. Examination findings are further limited secondary to breathing motion artifact and positioning of th e patient's arms adjacent to the chest resulting in significant streak artifact through the solid org ans of the upper abdomen and through the dependent chest. Within these limitations, the following obs ervations are made. Chest: Motion limited evaluation through the lungs reveals moderate RIGHT, small LEFT pleural effusio n with associated compressive atelectasis and/or consolidation. Recently placed RIGHT internal jugula r approach central venous catheter tip terminates at the SVC RIGHT atrial junction. Multifocal centri lobular lucency and bilateral apical cysts are present compatible with emphysema without findings to suggest pneumothorax. Cardiomegaly without pericardial effusion. Trace volume of secretion present within the RIGHT mainstem bronchus otherwise the tracheobronchial a irways appear to be grossly patent. Multiple small lymph nodes are present throughout the mediastinum, may be reactive in etiology, none of which appear to be pathologically enlarged by CT measurement criteria. The Abdomen and pelvis: Diffuse free fluid is present throughout the abdomen and pelvis. Free fluid is pr esent in a perihepatic and. Splenic distribution with a small volume of hemorrhage within the depende nt presacral pelvis. Large volume of free fluid is present within the RIGHT greater than LEFT scrotum . Large fat and bowel-containing hernia is present within the RIGHT inguinal canal measuring 12.2 x 8 .3 cm. The liver, gallbladder, pancreas, spleen, bilateral kidneys and bilateral adrenal glands are within n ormal limits. Poorly visualized cystic type structure is identified at the level of the superior pole of the LEFT kidney, cannot be further evaluated secondary to streak artifact measuring 3.5 cm simila r in appearance to the previous examination (series 201, image 27). The vessels reveal atherosclerotic calcification otherwise normal in caliber. No abdominopelvic lymph nodes are noted to be pathologically enlarged by CT measurement criteria. The bowel is within normal limits of a motion limited examination without abnormal bowel wall thickne ss or bowel dilation. Diverticular disease without findings to suggest diverticulitis. The bladder is decompressed limiting evaluation. No free air. No organizing abdominopelvic fluid collections. The appendix is not identified. The osseous structures are within normal limits. Diffuse edema throughout the subcutaneous tissues co mpatible with anasarca. Additionally, there is possible scrotal edema. IMPRESSION: 1. Diffuse free fluid present throughout the abdomen and pelvis, including the subcutane ous tissues compatible with anasarca. 2. Large volume fluid present within the LEFT greater than RIGHT scrotum. 3. Large fluid, fat and bowel-containing inguinal hernia on the RIGHT measuring 12.2 x 8.3 cm. 4. Moderate RIGHT, small LEFT pleural effusions with compressive atelectasis versus consolidation. 5. 3.5 cm stable appearing cyst of the superior pole of the LEFT kidney suspected simple cyst, howeve r cannot be further characterized secondary to severe streak artifact through this region. Electronically signed by: Dorcas Smith MD 02/23/2020 11:38 PM CDT Due to temporary technical issues with the PACS/Fluency reporting system, reports are being signed by the in house radiologist without review as a courtesy to ensure prompt reporting. The interpreting r adiologist is fully responsible for the content of the report.
[2020-02-24] MEDS ORDERED: propofoL 1,000 MG/100 ML VIAL IV PRN (09:05)
[2020-02-24] MEDS ORDERED: HALOPERIDOL LACT 5 MG/ML INJ IV PRN (09:05)
[2020-02-24] MEDS ORDERED: NA CHLORIDE 0.9% 250 ML IV PRN (09:05)
[2020-02-24] MEDS ORDERED: FENTANYL CITR 100 MCG/2 ML IV PRN (09:05)
--- NOTE | 2020-02-24 09:20 | RAD REPORT ---
EXAM DESCRIPTION: Keshia Single View02/24/2020 8:46 am CLINICAL HISTORY: Device placement/endotracheal tube placement COMPARISON: February 23 FINDINGS: Since an earlier film on the same date an endotracheal tube has been inserted with its tip approximately 5 centimeters above the sherrill
[2020-02-24] MEDS ORDERED: FENTANYL CITR 100 MCG/2 ML ONE (09:33)
[2020-02-24] MEDS ORDERED: MIDAZOLAM HCL 2 MG/2 ML INJ ONE ×2 (09:33→23:52)
[2020-02-24] MEDS ORDERED: METOPROLOL TARTRATE 5 MG/5 ML INJ IV ONE ×2 (09:33→20:30)
[2020-02-24] MEDS: CEFEPIME/SWI 2gm 2 GM/20 ML SYR IV SCH ×2 (09:35→20:56)
[2020-02-24] MEDS: METOPROLOL TARTRATE 5 MG/5 ML INJ IV SCH ×2 (09:36→20:37)
[2020-02-24] MEDS: MIDAZOLAM HCL 2 MG/2 ML INJ IV PRN ×2 (09:37→15:58)
[2020-02-24 10:41] LABS: Arterial Blood Carboxyhemoglob 2.8 % (0-1.5); Blood Gas Oxyhemoglobin 88.8 % (94-97); Blood O2 Saturation 92.1 % (92-98.5)
--- NOTE | 2020-02-24 11:31 | P.CNS ---
Date of Consult: 02/24/20 Reason for Consult: Respiratory failure Chief Complaint: Respiratory failure History of Present Illness: Patient is 59 years of age well known to me a history of noncompliance he has a history of severe COPD severe sleep apnea he quit smoking a while ago is still continues to work and was admitted with altered mental status he has had the same problem day for quite a few months ago history of cough patient failed BiPAP was admitted with hypoxic hypercapnic respiratory failure with acidosis and later had to be placed on a ventilator Allergies No Known Allergies Allergy (Verified 02/23/20 22:06) Home Medications: Metoprolol Tartrate [Lopressor*] 50 mg PO BID 09/11/18 Pantoprazole [Protonix Tab*] 40 mg PO DAILY 09/11/18 Acetaminophen with Codeine [Acetaminophen-Cod #3 Tablet] 1 each PO TID PRN 02/23/20 Bupropion HCl [Wellbutrin Sr] 100 mg PO DAILY 02/23/20 Folic Acid 1 mg PO DAILY 02/23/20 Hydroxychloroquine [Plaquenil] 200 mg PO BID 02/23/20 Methotrexate Sodium [Methotrexate] 10 mg PO EVERY 7TH DAY 02/23/20 Mometasone/Formoterol [Dulera 200 Mcg/5 Mcg Inhaler] 2 puff IH BID 02/23/20 - Past Medical/Surgical History Diabetic: No -: HTN -: COPD -: Venous insufficiency -: Lymphedema -: HTN -: RA -: hernia repair -: perforated bowel - Family History Father Medical History: Other (see notes) Notes: alcoholic Mother Medical History: Heart disease - Social History Smoking Status: Current every day smoker Alcohol use: Yes CD- Drugs: No Caffeine use: Yes Place of Residence: Home Review of Systems is unable to be obtained Physical Examination Temp Pulse Resp BP Pulse Ox 97.3 F 140 H 15 99/58 L 97 02/24/20 11:00 02/24/20 11:00 02/24/20 11:00 02/24/20 11:00 02/24/20 11:00 General: Other (Deferred patient is in isolation) Laboratory Data (last 24 hrs) 02/23/20 18:50: APTT 28.8 02/23/20 18:50: PT 22.6 H, INR 1.94 02/23/20 18:50: WBC 26.4 H*, Hgb 14.1, Hct 50.3 H, Plt Count 303 02/23/20 18:50: Sodium 137, Potassium 6.0 H*, BUN 67 H, Creatinine 2.21 H, Glucose 114 H, Magnesium 2.1, Total Bilirubin 1.9 H, AST 509 H*, ALT 526 H*, Alkaline Phosphatase 88, Lipase 52 L - Problems (1) Respiratory failure Current Visit: Yes Status: Acute Plan: Patient is 59 years of age with a history of COPD severe sleep apnea and noncompliance admitted with the respiratory failure unresponsiveness he has had a similar episode before in August patient has abnormal renal function which is worse on elevated troponins and liver function tests white count is very elevated agree with diuretics rule out anderson virus infection continue with steroids Lasix ventilator has been adjusted echocardiogram once anderson virus has been ruled out change to Lovenox Qualifiers: Chronicity: acute on chronic
[2020-02-24] MEDS: LORazepam 2 MG/ML VIAL IV PRN ×3 (11:49→23:00)
[2020-02-24] MEDS: Enoxaparin 120 MG/0.8 ML SYR SQ SCH (12:09)
[2020-02-24] MEDS ORDERED: AMIODARONE HCL 150 MG in D5W 100 ML IV STA (13:55)
[2020-02-24] MEDS ORDERED: ADENOSINE 6 MG/ 2ML VIAL IV ONE (13:59)
[2020-02-24] MEDS ORDERED: AMIODARONE HCL 900 MG in Dextrose 5%-Water 482 ML IV SCH (14:00)
[2020-02-24 16:17] LABS: Magnesium 1.9 mg/dL (1.8-2.4); Potassium 4.9 mmol/L (3.5-5.1)
[2020-02-24] MEDS: FUROSEMIDE 40 MG/4 ML VIAL IV SCH (17:03)
[2020-02-24] MEDS: ARFORMOTEROL TARTRATE 15 MCG/2 ML VIAL.NEB NEB SCH (20:00)
[2020-02-24] MEDS ORDERED: VANCOMYCIN 1 GM/VIAL ONE (20:29)
[2020-02-24] MEDS ORDERED: LORazepam 2 MG/ML VIAL ONE (20:29)
[2020-02-24] MEDS ORDERED: FAMOTIDINE 20 MG/2 ML VIAL IV ONE (20:30)
[2020-02-24] MEDS ORDERED: NA CHLORIDE 0.9% 500 ML ONE (20:30)
[2020-02-24] MEDS: FAMOTIDINE 20 MG/2 ML VIAL IV SCH (20:38)
[2020-02-24] MEDS ORDERED: LEVALBUTEROL 1.25 MG/3 ML NEB ONE (20:45)
[2020-02-24] MEDS ORDERED: CEFEPIME 2 GM VIAL ONE (20:54)
--- NOTE | 2020-02-24 21:19 | CON ---
Date of Consultation: 02/24/2020 Reason For Consultation: Supraventricular tachycardia. History Of Present Illness: This is a 59-year-old male who has history of hypertension, COPD, lymphe sahara, rheumatoid arthritis, and severe sleep apnea, presented to the emergency room with shortness of breath, altered mental status, failed BiPAP for mixed hypoxic and hypercapnic respiratory failure an d required intubation and was placed on the ventilator in the ICU. The patient was found to have sup raventricular tachycardia. I was asked to evaluate him for that regard. Past Medical History: As outlined above in the HPI. Medications: Refer to reconciliation sheet for detailed list. Allergies: NO KNOWN DRUG ALLERGIES. Family History: No premature coronary artery disease or cancer. Social History: Does not use drugs. Drinks alcohol and smokes on daily basis. Review of Systems: The patient is on the vent, cannot obtain systems' review. The patient is completely sedated. Menta l status is altered. Physical Examination: Vital Signs: The temperature is 97.3, pulse 140, breathing at 15, blood pressure is 101/58, and satu rating 98% on mechanical ventilator. General: This is a middle-aged male, breathing comfortably on the vent. Head and Neck: Pupils are reactive to light. No JVD. No cervical lymphadenopathy. Neck is supple. Thyroid is not enlarged. Lungs: Rhonchi bilaterally. No accessory muscle use. Heart: Regular rate and rhythm. Tachycardic. Abdomen: Soft, nontender. Bowel sounds positive. No organomegaly. No masses or hernia. No rigidi ty or rebound. Extremities: Edema bilaterally. No clubbing or cyanosis. Skin: No rashes noted. Neurologic: He is sedated, on the vent and unresponsive. Lymph Nodes: No cervical or axillary lymphadenopathy. Investigations: Sodium 140, BUN 30, creatinine is 1.95. Troponin 1.05. NT-proBNP is 11,003. Chest x-ray, fluid overload and CHF. Lower extremity venous Doppler, there is extensive acute thrombus in left greater saphenous vein. CT scan of the abdomen and pelvis is showing diffuse free fluid presen t throughout the abdomen and pelvis including subcutaneous tissue, moderate right and small left pleu ral effusion is present. Assessment And Plan: 1.Acute mixed hypoxic and hypercapnic respiratory failure, on mechanical ventilator, being managed b y Pulmonary. Aggressive IV diuresis is recommended. I will increase the Lasix dose from 40 to 80 mg due to elevated creatinine to get a more effective dose of the furosemide. Monitor input and output very carefully. 2.Supraventricular tachycardia. I gave the patient adenosine and the heart rate slowed down that re vealed an atrial flutter with 2:1 block. Given the fact the blood pressure is on the low side, I rec ommend amiodarone drip and evaluate if this will help converting to sinus. If not, then a cardiovers ion will be recommended as a second step. 3.Elevated troponin. This could be due to demand ischemia as troponin has been stable. The patient is currently anticoagulated for the saphenous vein thrombosis. Recommend rectal aspirin and once e patient's condition is stable, coronary angiogram to be performed. I appreciate the courtesy of this consultation. /HOLLY Voice ID: [id number] Report ID: [id number]
[2020-02-24] MEDS ORDERED: ZOLPIDEM TARTRATE 10 MG TABLET ONE (21:23)
[2020-02-24] MEDS ORDERED: TRAMADOL HCL 50 MG TAB ONE (21:24)
[2020-02-24] MEDS ORDERED: ATORVASTATIN 10 MG TAB ONE (21:24)
[2020-02-25] MEDS: MIDAZOLAM HCL 2 MG/2 ML INJ IV PRN ×3 (00:27→12:17)
[2020-02-25] MEDS: LEVALBUTEROL 1.25 MG/3 ML NEB NEB SCH ×4 (01:10→20:35)
[2020-02-25] MEDS ORDERED: LEVALBUTEROL 1.25 MG/3 ML NEB ONE ×3 (01:16→13:29)
[2020-02-25] MEDS ORDERED: METHYLPREDNISOLONE 40 MG INJ ONE ×4 (01:56→20:55)
[2020-02-25] MEDS: METHYLPREDNISOLONE 40 MG INJ IV SCH ×3 (02:25→16:43)
--- NOTE | 2020-02-25 02:51 | CON ---
Date of Consultation: 02/24/2020 Chief Complaint: Acute kidney injury moderately severe, nonoliguric. History Of Present Illness: The patient is admitted to ICU for respiratory failure. The patient has history of severe COPD and severe sleep apnea. He quit smoking some time ago. He has history of no ncompliance with medication and failed BiPAP. During this admission, he came with hypoxic hypercapni c respiratory failure with acidosis and he was placed on ventilator. He remains in ICU. He has mult iple medical problems including history of lymphedema, rheumatoid arthritis, hernia repair, COPD, and hypertension. He was found to have acute kidney injury. BUN and creatinine level were elevated and potassium level was up to 5.7. The patient was treated for hyperkalemia. He was found to have elev ated AST and ALT, which corresponds to congestive heart failure with right-sided heart failure. Review of previous medical records showed creatinine level of 0.73 back in January 2019. On arrival to the hospital, creatinine level was 2.21 and BUN 68, sodium 138, potassium 5.7, chloride 106, CO2 27, calcium 8.1, and phosphorus 7.4. The patient had lab work done to screen for acute coronary syndrome . CK level was 125, which does not support diagnosis of rhabdomyolysis. His troponin level is 1.06 and 1.05. BNP is extremely elevated up to 11,003. The patient has hypoalbuminemia. Albumin is 2.4 and total protein 6.1. Urinalysis was done to screen for abnormal urinary sediment and did not show microscopic hematuria. There is 2+ protein. Review of Systems: Unobtainable. Past Medical History: COPD, obesity, hypertension, rheumatoid arthritis, lymphedema, hernia repair, perforated bowel. Family History: Father, alcoholic. Mother, heart disease. Social History: The patient quit smoking, although recently he is still active everyday smoker. Physical Examination: Lungs: Distant breath sounds. Heart: S1, S2. No pericardial friction rub. Neck: Supple. Eyes: Anicteric sclerae, EOMI. Abdomen: Obese, soft, nontender. No rebound. No guarding. Extremities: Edema present in both legs. Neurological: Moving extremities. Cranial nerves intact. Psychiatric: The patient is on vent. Laboratory Data: Sodium 137, potassium 6.0, BUN 67, creatinine 2.21, glucose 114, magnesium 2.1. T 509, ALT 526, total bilirubin 1.9. The patient is a 59-year-old man with history of chronic obstructive pulmonary disease, severe sleep apnea, history, noncompliance with medication, respiratory failure, and unresponsiveness. The patien t had episode back in August with abnormal renal function, although last year creatinine level was w ithin normal limits. The patient has elevated troponin and liver function tests. White count is jae vated. The patient will start antibiotics for possible pneumonia and diuretics will be used for shraddha estive heart failure. The patient will start steroids and Lasix. Ventilator support will be followed by Pulmonary Service. Acute kidney injury. Plan is to screen for vasculitis, although there is no abnormal sediment. The patient has proteinuria which may go along with glomerulonephritis and secondary focal segmental glom erulosclerosis. The patient likely has cardiorenal syndrome, possible acute coronary syndrome. Plan is to check jacqueline l ultrasound. During this admission, the patient had CT scan done of abdomen and pelvis without cont rast. I recommend to avoid IV contrast due to acute kidney injury. within normal limits according to CT scan. Elevated liver function tests workup per prima ry team. EB/MODL Voice ID: [id number] Report ID: [id number]
[2020-02-25 04:51] LABS: Hematocrit 41.8 % (39.6-49.0); MPV 8.7 fL (7.6-11.3); RBC Red Blood Cell Count 5.98 M/uL (4.33-5.43)
[2020-02-25 05:00] LABS: Potassium 5.2 mmol/L (3.5-5.1)
--- NOTE | 2020-02-25 05:21 | HP ---
Date of Admission: 02/24/2020 Chief Complaint: Altered mental status. History Of Present Illness: This is a 59-year-old male patient, who came into emergency room with altered mental status. After he was evaluated in the ER, he was admitted to the hospital with acute respiratory failure, acute kidney failure, thrombophlebitis of left leg, abnormal cardiac enzymes, abnormal liver enzymes, bilateral leg edema with some concern about cellulitis of leg. The patient was placed on BiPAP, and as I understand by talking to ER physician, he responded well to BiPAP and he had started to show some improvement, so decision was made to admit him to ICU. He was started on IV antibiotics, nebulizer treatment, IV steroid, heparin drip, and the patient also had atrial fibrillation. Multiple consultants were requested to evaluate the patient, and this morning when I saw him, he was still in the emergency room as there were no ICU beds available, and when I saw him, he was on BiPAP, extremely somnolent, very minimal response on verbal commands. There was no response, but when I would touch his arm or gently rub my hand on his chest, he would open his eyes, but he would not answer any questions, would not follow any commands. He did not respond to any painful stimuli, which was applied at the nail bed. Immediately after I saw him, another blood gas was done, which showed worsening of his respiratory failure and the patient was intubated with help of ER physician this morning. I did call the patient's and all the details were discussed with her this morning. Allergies: NO KNOWN ALLERGIES. Medications: List reviewed. 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 Cardiovascular: Has bilateral leg edema, which is chronic. All other systems reviewed and negative. Past Surgical History: Surgery for bleeding peptic ulcer. Past Medical History: Peptic ulcer disease, COPD, chronic leg edema, varicose veins of legs. Family History: Not pertinent. Social History: Positive for smoking, about 2 packs per day smoking. Denies any alcohol use. Physical Examination: Vital Signs: This morning, temperature 97.7, pulse 124, respiratory rate 22, blood pressure 139/90, oxygen saturation 92%. Weight 250 pounds, height 6 feet 3 inches. General: The patient is somnolent, not responding to painful stimuli, on BiPAP. HEENT: Head atraumatic, normocephalic. Conjunctivae nonerythematous. Sclerae white. Mouth, no thrush or edema noted. Ears/Nose, no mass, lesion, discharge noted. Neck: Supple. No JVD, lymph nodes, bruit, thyromegaly noted. Lungs: Bilateral good equal air entry. Clear to auscultation. No rhonchi. No rales. Heart: Normal heart sounds, no murmur or gallop. Abdomen: Soft, bowel sounds normal. No guarding, rigidity, tenderness, mass, hepatosplenomegaly, distention, or bruit noted. Extremities: Bilateral leg edema, about grade 1 to grade 2. Right leg has pink, slightly warm skin involving lower leg. Left leg has 2 superficial open wounds, appear to be more like chronic. No discharge, bleeding from that and this is over the left mid anterior leg to lower leg area, approximately 1 cm and 2.5 cm in size. Skin: No rash, ulcer, cellulitis. Lymphatics: No lymph node enlargement in neck, supraclavicular, infraclavicular region. Neuro: The patient is somnolent. Detailed SPLINE ROLLING MACHINE JOB SETTER exam not possible. Chest: Unremarkable. External Genitalia: Deferred. Rectal: Deferred. Laboratory Data: Initial white count of 27, this was yesterday with hemoglobin 14.1, platelets 303. This morning, white count 26.3, hemoglobin 13, platelets 277. INR 1.94. Initial blood gas; pH 7.17, pCO2 78, PO2 148, oxygen saturation 97.9% on 100% FiO2 this morning. Blood gas; pH 6.99, pCO2 121, PO2 83.7, saturation 88.9% on 60% FiO2. Initial sodium was 137, potassium 6, chloride 102, bicarb 25, BUN 67, creatinine 2.21, glucose 114. Lactic acid 2.27. Procalcitonin 0.55. Total bilirubin 1.9, direct bilirubin 0.2. SGOT 509, SGPT 526, alkaline phosphatase 88. Troponin 1.02. Ammonia level 40. BNP 12,107. TSH 8.6. This morning, sodium 140, potassium 5.2, chloride 109, bicarb 27, BUN 70, creatinine 1.95, glucose 151. Total bilirubin 1.3, direct bilirubin 0.8, SGOT 228, SGPT 397. ProBNP 11,003 and last troponin 1.05. Repeat chem this afternoon, sodium 142, potassium 4.9, chloride 106, bicarb 29, BUN 77, creatinine 2.16, glucose 131. Urinalysis; negative for nitrite and esterase, wbc less than 5, bacteria more than 50. Digoxin level 1.70. Vancomycin level 12.5. The patient's venous Doppler of both lower extremities shows no evidence of deep vein thrombosis, but left greater saphenous vein has thrombus. Chest x-ray, shallow inspiration. CAT scan of the chest, abdomen and pelvis shows diffuse free fluid present throughout the abdomen and pelvis, including the subcutaneous tissues compatible with anasarca. Large volume fluid present within the left greater than right scrotum. Large fluid, fat and bowel-containing inguinal hernia on the right measuring 12.2 x 8.3 cm. Moderate right, small left pleural effusions with compressive atelectasis versus consolidation. 3.5 cm stable appearing cyst of the superior pole of the left kidney suspected simple cyst, however cannot be further characterized secondary to severe streak artifact through this region Impression: 1. Acute respiratory failure with hypercapnia. 2. Acute kidney failure. 3. Abnormal liver function test. 4. Abnormal cardiac enzymes. 5. Leg edema. 6. Cellulitis, right leg. 7. Thrombophlebitis, left greater saphenous vein. Plan: We will go ahead and admit the patient to hospital to intensive care unit for further evaluation and management of this problem. The patient's COVID-19 test was done, which came back negative. We will consult Cardiology, Pulmonary, and Nephrology service. For atrial fibrillation, the patient is on heparin, which would help with his atrial fibrillation problem as well as also his thrombophlebitis, even though it is superficial thrombophlebitis. Anticoagulation therapy that we are using for atrial fibrillation should help also. Echocardiogram will be done and we will follow up with engineering and operations director. Legal Manager has started him on amiodarone drip. His abnormal liver function test is very likely due to passive venous congestion and repeat liver enzyme today is already looking better compared to yesterday. We will continue to follow up on that. His respiratory failure will be managed with ventilator support, IV steroid, nebulizer treatment, oxygen, and pulmonary consultation with Dr. Garcia. I have informed the patient on multiple prior occasions to quit smoking and I did talk to the patient's in detail and she is very frustrated about his smoking habit. His overall prognosis is poor. We will continue to follow with order schedule clerk for kidney failure. In Tube Conversion Technician has started him on IV Lasix drip with albumin. We will monitor intake, output. Monitor electrolytes and renal function and I will see him tomorrow for followup. Continue current empiric antibiotics. Follow up on cultures. REJI/MODL Voice ID: [id number] FRANDY
[2020-02-25] MEDS ORDERED: MIDAZOLAM HCL 2 MG/2 ML INJ ONE ×2 (08:04→10:38)
--- NOTE | 2020-02-25 08:43 | ECHO ---
HEIGHT: 6 ft 3 in WEIGHT: 250 lb 0 oz DATE OF STUDY: 02/24/[address]: Yonny Martin MD 2-DIMENSIONAL: YES M.MODE: YES DOPPLER: YES COLOR FLOW: YES TDS: YES PORTABLE: YES DEFINITY: NO BUBBLE STUDY: NO DIAGNOSIS: CONGESTIVE HEART FAILURE CARDIAC HISTORY: CATHERIZATION: NO SURGERY: NO PROSTHETIC VALVE: NO PACEMAKER: NO MEASUREMENTS (cm) DIASTOLIC (NORMALS) SYSTOLIC (NORMALS) IVSd 1.1 (0.6-1.2) LA Diam (1.9-4.0) LVEF 66% LVIDd 3.7 (3.5-5.7) LVIDs 2.4 (2.0-3.5) %FS 36% LVPWd 1.2 (0.6-1.2) Ao Diam 2.8 (2.0-3.7) 2 DIMENSIONAL ASSESSMENT: RIGHT ATRIUM: LEFT ATRIUM: RIGHT VENTRICLE: LEFT VENTRICLE: TRICUSPID VALVE: MITRAL VALVE: PULMONIC VALVE: AORTIC VALVE: PERICARDIAL EFFUSION: AORTIC ROOT: LEFT VENTRICULAR WALL MOTION: DOPPLER/COLOR FLOW: COMMENTS: VERY POOR STUDY AND LIMITED WINDOWS. DILATED INFERIOR VENA CAVA SUGGESTS RIGHT ATRIAL PRESSURE > 20mmHg. LEFT VENTRICULAR EJECTION FRACTION IS VERY HARD TO ESTIMATE DUE TO POOR WINDOWS. TECHNOLOGIST: DIDIER GUEVARA
[2020-02-25] MEDS: FUROSEMIDE 40 MG/4 ML VIAL IV SCH ×2 (08:57→16:43)
[2020-02-25] MEDS: FAMOTIDINE 20 MG/2 ML VIAL IV SCH ×2 (08:58→20:59)
[2020-02-25] MEDS: METOPROLOL TARTRATE 5 MG/5 ML INJ IV SCH ×3 (08:58→20:55)
[2020-02-25] MEDS: Enoxaparin 120 MG/0.8 ML SYR SQ SCH (08:59)
[2020-02-25] MEDS ORDERED: METOPROLOL TARTRATE 5 MG/5 ML INJ IV ONE ×3 (09:03→20:56)
[2020-02-25] MEDS ORDERED: FUROSEMIDE 40 MG/4 ML VIAL ONE ×2 (09:03→16:50)
[2020-02-25] MEDS ORDERED: FAMOTIDINE 20 MG/2 ML VIAL IV ONE ×2 (09:04→20:56)
[2020-02-25] MEDS: CEFEPIME/SWI 2gm 2 GM/20 ML SYR IV SCH ×2 (09:46→20:55)
[2020-02-25 09:55] LABS: Arterial Blood Carboxyhemoglob 1.8 % (0-1.5); Blood Gas Oxyhemoglobin 85.4 % (94-97); Blood O2 Saturation 87.8 % (92-98.5)
--- NOTE | 2020-02-25 10:16 | EKG ---
Test Date: 2020-02-24 Test Time: 13:52:55 Filter Screen Cleaner: JULIO MEASUREMENT RESULTS: Intervals: Rate: 134 GA: 150 QRSD: 88 QT: 262 QTc: 391 [place]: P: 189 GA: 150 QRS: 24 T: 96 INTERPRETIVE STATEMENTS: Unusual P axis, possible ectopic atrial tachycardia with undetermined rhythm irregularity ST & T wave abnormality, consider anterior ischemia Abnormal ECG Compared to ECG 02/23/2020 19:32:46 ST (T wave) deviation now present Possible ischemia now present Atrial flutter no longer present Incomplete right bundle-branch block no longer present Electronically Signed On 02-25-20 10:13:58 CDT by Juan Luis Levin
--- NOTE | 2020-02-25 10:32 | RAD REPORT ---
EXAM DESCRIPTION: US - Renal Ultrasound-Complete - 02/25/2020 9:51 am CLINICAL HISTORY: arf COMPARISON: Abdomen Pelvis Wo Contrast dated 07/03/2018none FINDINGS: Exam is limited. Patient was intubated and unresponsive. There was limited ability to posi tion the patient for the examination. The right kidney measures approximately 12.8 x 6.3 x 4.5 cm. The left kidney measures 14.4 x 6.6 x 4 .9 cm. Renal cortical thickness appears normal. Echogenicity is increased. It is difficult to tell if this is from medical renal disease or due to the body habitus limitations of this examination. No hy dronephrosis seen. A 3 centimeter cyst is present lateral upper pole left kidney. This matches the 20 18 study. Bladder is contracted around a Sadler catheter and not further assessed. IMPRESSION: No hydronephrosis or solid mass of either kidney. Renal parenchymal echogenicity increase could be due to medical renal disease or body habitus affects .
[2020-02-25] MEDS: ARFORMOTEROL TARTRATE 15 MCG/2 ML VIAL.NEB NEB SCH ×2 (10:55→20:35)
--- NOTE | 2020-02-25 11:04 | RAD REPORT ---
EXAM DESCRIPTION: CT - Head Brain Wo Cont - 02/25/2020 10:47 am CLINICAL HISTORY: followup on abnormal CT head COMPARISON: Head Brain Wo Cont dated 02/23/2020; Head Brain Wo Cont dated 01/17/2019 TECHNIQUE: Axial 5 mm thick images of the head were obtained without IV contrast. All CT scans are performed using dose optimization technique as appropriate and may include automated exposure control or mA/KV adjustment according to patient size. FINDINGS: No intracranial hemorrhage is present. There is no midline shift. Approximately 5 centimet er area of decreased attenuation is present in the left parietal lobe. This extends anteriorly and in feriorly to include a portion of the posterosuperior left temporal lobe. This nonhemorrhagic acute CV A finding is the normal progression of the infarction changes suspected on the February 22 study. Sulcal effacement and loss of del rosario matter - white matter differentiation is noted at this CVA. There is some local edema but no significant mass effect. No effacement of the adjacent left lateral ventricle. Patient has decreased attenuation in the medial left occipital lobe adjacent to the tentorium. This i s believed to be an older infarction. Age is uncertain. Medial left occipital lobe is generally suppl ied by a different vascular system than the parietal CVA. Ventricles are normal. Mastoid air cells and visualized portions of the paranasal sinuses are clear. No acute bony findings. IMPRESSION: Approximately 5 centimeter size left parietal nonhemorrhagic acute CVA. This is the norm al progression of the CVA suspected on the February 22 study. There is some localized mass effect and edema but no effacement of the left lateral ventricle and no midline shift. The patient also has infarction change in the medial left occipital lobe unchanged from the February 22 s tudy. This is a different vascular distribution and may be unrelated to the left parietal CVA.
--- NOTE | 2020-02-25 11:26 | PN ---
Date of Progress Note: 02/25/2020 Subjective: Mr. Yu was admitted to Dr. Singh on 02/23/2020. He has been followed by Dr. Singh and Dr. Huddleston, Pulmonology as well as Nephrology. Mr. Yu has multiple medical problems including h istory of DVT, acute renal failure, acute respiratory failure. He is intubated, has elevated troponi n, has SVT, atrial flutter and atrial fibrillation. He is on amiodarone drip. He remains in atrial fibrillation at a rate of about 110. He remains intubated. He is getting Lasix IV. He is also on L ovenox, insulin. He received 1 dose of digoxin yesterday. He is also on metoprolol, antibiotics and steroid. His last creatinine is 2.2. Last pO2 was 60. His last white count is 19,000. His tropon in is 1.05. His BNP is 11,000. Echocardiogram that was done yesterday showed a normal ejection frac tion. I thought that he had a slight dilation of the right atrium and right ventricle consistent wit h pulmonary hypertension. Objective: Vital Signs: Stable. He is in atrial fibrillation with a rate of 113. He is afebrile. HEENT: Negative. Neck: Supple with no bruit, he remains intubated. Chest: Reveals some rales throughout. Cardiac: Exam revealed atrial fibrillation. Extremities: Revealed 1+ edema. Diagnostic Data: As stated earlier. Impression And Plan: 1.Acute respiratory failure, requiring intubation secondary to what appears to be acute on chronic d iastolic congestive heart failure, possibly pulmonary etiology as well. 2.Acute renal failure. 3.Elevated troponin. 4.Supraventricular tachycardia with atrial flutter, on amiodarone. I will continue present regimen including amiodarone, Lovenox insulin, Lasix, metoprolol, steroid, an d antibiotics. We can give him IV digoxin 0.25 mg every 6 hours as needed for rapid response. We will continue to follow Mr. Yu. BENJIE/JUANAL Voice ID: [id number] Report ID: [id number]
--- NOTE | 2020-02-25 12:18 | P.PN ---
Subjective Date of Service: 02/25/20 Chief Complaint: Respiratory failure and a stroke patient's condition is stable is still unresponsive recent diagnosis of a stroke Review of Systems is unable to be obtained Physical Examination - Vital Signs Temperature: 99.5 F Blood Pressure: 110/91 Pulse: 108 Respirations: 15 Pulse Ox (%): 93 - Physical Exam General: Unresponsive Neck: Supple Respiratory: Clear to auscultation bilaterally, Diminished Assessment & Plan - Problems (Diagnosis) (1) Respiratory failure Current Visit: Yes Status: Acute Plan: patient admitted with respiratory failure he now has acute stroke nonhemorrhagic white count is declining oxygenation satisfactory mildly hypercapnic he is at his baseline at 32% FiO2 cultures are negative patient has renal failure mildly hyperkalemia echocardiogram poly niece to be repeated his very poor baseline functioning with severe COPD and sleep apnea and noncompliance chest CT shows bilateral pleural effusions Dc vancomycin agree with Consul soon Neurology and Nephrology continue with anticoagulation CT scan shows pleural effusion is worse on the right side patient is on steroids I have added thymine Qualifiers: Chronicity: acute on chronic (2) Stroke Current Visit: Yes Status: Acute Plan: patient has a 5 cm left-sided lopez till nonhemorrhagic stroke most likely has significant cerebral vascular disease
[2020-02-25] MEDS ORDERED: IPRATROPIUM BROM 0.5MG/2.5ML ONE (13:29)
[2020-02-25] MEDS: THIAMINE 200 MG/2 ML INJ IVP SCH (13:53)
[2020-02-25] MEDS ORDERED: THIAMINE 200 MG/2 ML INJ ONE (14:01)
--- NOTE | 2020-02-25 15:10 | P.PN ---
Subjective Date of Service: 02/25/20 Chief Complaint: Respiratory failure and a stroke Pt admitted with SOB , required intubation had FRANCHESCA , imaging with large pericardial effusion ,pt developed isthmic CVA Today head CT with CVA , vent dependant will start on lasix family refusing PEG and trach if needed Physical exam general: intubated Neck; Supple, No elevated JVD hear: RRR, normal S1,2 no murmur or rub Chest: CTAB, no rlaes or wheezes Abdomen: slightly distended , Nt , scrotal edema Extremities No edema or ulcer FRANCHESCA possibly due to ischemic ATN and cardiorenal syndrome will start lasix monitor vanco level no need for urgent renal replacemt therapy at this time CHF with large effusion wuill atrt on lasix acute resp faiulre cont vent support NSTEMI trend trop Elevated LFT due to shocked lover Overall poor prognosis family to decide about goal of care Physical Examination - Vital Signs Temperature: 99.5 F Blood Pressure: 124/83 Pulse: 108 Respirations: 15 Pulse Ox (%): 96
[2020-02-25] MEDS ORDERED: METHYLPREDNISOLONE 40 MG INJ IV SCH (17:00)
[2020-02-25] MEDS ORDERED: LEVALBUTEROL 0.63 MG/3 ML NEB ONE (20:16)
[2020-02-25] MEDS ORDERED: ARFORMOTEROL TARTRATE 15 MCG/2 ML VIAL.NEB ONE (20:16)
[2020-02-25] MEDS ORDERED: CEFEPIME 2 GM VIAL ONE (20:55)
[2020-02-25] MEDS ORDERED: FUROSEMIDE 40 MG/4 ML VIAL IV SCH (21:00)
--- NOTE | 2020-02-25 22:03 | CON ---
Reason For Consultation: Consultation called because of stroke. History Of Present Illness: Mr. Yu is a 59-year-old right-handed patient with multiple medical problems, including acute kidney failure, acute respiratory failure, long-standing thrombophl ebitis of the left leg and cellulitis with elevated cardiac enzymes, and significant edema in the low er extremities as well as now being intubated for respiratory failure. The patient was initially adm itted and sent to the ICU, put on BiPAP, but he did not improve and was therefore intubated for [facility] respiratory support. On his admission, his head CT scan was initially read as negative, but after review, it appeared there was a subacute ischemic stroke in the left temporoparietal region. Subseq uent CT scan done around 48 hours after the first did confirm a 5 cm stroke in the left parietal elizabeth on extending into the left temporal area as well. There was a chronic stroke identified in the left occipital lobe, which was actually not recognized by either the patient or anyone previously. At the time of my evaluation, the patient did not receive any recent sedation. He had Versed much earlier. He was intubated in the emergency room because of the COVID designation for our ICU unit and so he is in the ER room 9, staff at the bedside, respiratory therapies included. The patient was intubated and mechanically ventilated with a respiratory rate set at 15. He had failed prior attempt at decre asing assistance with respiration and not breathing at all over the ventilator. His pH dropped to 6. 8 and he had a trial off the respirator and was quickly put back on. The respiratory therapist did n ot know that he had not done any breathing over the ventilator since she has been evaluating and ondina ting him for around 18 to 24 hours. He did however have some focal fine movements in the arms and le gs when stimulated strongly and would nit his forehead when stimulated and attempts to resist eye ope chasidy bilaterally. Past Medical History: As indicated including COPD and peptic ulcer disease. Social History: The patient smokes 2 packs of cigarettes daily. No alcohol use. Past Surgical History: He had surgery for bleeding GI ulcers. Allergies: NO KNOWN DRUG ALLERGIES. Current Medications: He is receiving high-dose Lovenox 110 mg subcutaneously daily for his stroke. He is on cefepime for his cellulitis. He has Brovana nebulizer, amiodarone for his blood pressure co ntrol, Pepcid IV, Lasix in addition to Haldol, Ativan, and thiamine. Family History: Noncontributory. Review of Systems: Not possible. Physical Examination: Vital Signs: Blood pressure 119/89, pulse of 230, now range down to 107, respiratory rate is actuall y 14, saturation 97%. Mechanically ventilated, FiO2 of 45%. Weight 262 pounds, height 63 inches, BM I 32.7. General: Mr. Yu is in the ICU bed as indicated and no spontaneous movement observed in the extre mities, however, he does grimaces face when touched and his forehead, and he moves both sides of the forehead equally. HEENT: Eyes when open showed pupils were around 3 mm, equally round and moderately reactive. He vázquez s have doll's response. However, no visual threat response was noted. He does have a gag response a nd his face does appear symmetric on just observation. Neurologic: His motor evaluation in the upper and lower extremities shows more withdrawal in the low er extremities and focally withdraws when stimulated in each feet with toes tend to move upwards, and he does withdraw the foot, again localized. When stimulated strongly in the upper extremity, he vázquez s barely move the left more than the right upper extremity. He is unable to assess his sensation affiliate marketing coordinator rdination, his balance and his gait. Stroke scale of 12. Laboratory Studies: Complete blood count with differential shows yesterday white count elevated at 2 6.3 with 87.9% neutrophils, today 19.6, his platelets 213, hemoglobin 12.0. His PTT is 58.8. Arteri al blood gas done yesterday showed pH of 6.99, currently pH 7.33; his pCO2 as of yesterday was 121, t jose de jesus 55.1; pO2 of 62. Chemistries showed elevated liver functions, ALT of 397. His troponin was jae vated at 1.05. His creatinine 2.22, calcium was 7.8. AST elevated at 222. He does have a digoxin l evel of 1.7. Vancomycin trough of 12.5. Pending stroke workup done. He is negative for COVID-19. His chest x-ray shows endotracheal tube 5 cm above sherrill. His electrocardiogram shows unusual P axis, possible ectopic atrial tachycardia and undetermined rhythm, ST and T-wave abnormality, consider anterior ischemia. Assessment: Mr. Yu is a 59-year-old patient, who has had a significant left parietal, temporal, and occipital stroke. There is an acute on chronic stroke and these are ischemic strokes. He at thi s point has not been breathing over the ventilator for around 24 hours. He does however have focal m ovements in terms of response to noxious stimulus in the legs more than the arms and does grimaces fa ce equally. This was discussed with the patient's at length and he had indicated to her he does not want to have any kind of long-term ventilatory support or being kept alive by intubation or othe r mechanical needs of ventilation. He had also discussed this with his sister. He has no children. It is also was discussed with Dr. Singh in terms of the patient's prognosis, which appears very poor unless he improves his capacity to ventilate. He does appear to have systemic infection with elevate d procalcitonin and elevated white count. He is on antibiotics. He is also on high-dose Lovenox for his stroke, which does not have a hemorrhagic conversion. Plan: 1.Continue with stroke management as indicated with Lovenox. 2.Continue with IV antibiotics as appropriate. 3.The patient does have a poor prognosis for recovery at this point given he is around 24 hours and not breathing over the vent and has not had any recent sedation. He may be observed another 12-24 ho urs to determine if this changes. The patient's family will discuss with Dr. Singh the next course of action, which may include removal of the ventilatory support and let the natural course of action to take place. At this point, the patient may also if stable and if does not appear to be stable enoug h, benefit from an MRI, which can help to determine the degree of brainstem dysfunction, which is pot entially the cause for his inability to maintain his own respiratory support. The patient will be followed while in hospital. ANDRIA/HOLLY Voice ID: [id number] Report ID: [id number]
--- NOTE | 2020-02-25 22:54 | PN ---
Date of Progress Note: 02/25/2020 Subjective: The patient was seen this morning for followup. He continues to remain on ventilator, unresponsive except only response I see is slight movement of his foot and toe with painful stimuli to leg, but he does not respond to any such stimuli to his hands. Objective: Vital Signs: Reviewed. Intake and output records reviewed. HEENT: Unremarkable. Lungs: Clear to auscultation. Heart: Sounds normal. Abdomen: Soft. Bowel sounds normal. No guarding, rigidity, tenderness, or distention. Extremities: Leg edema and redness of right lower extremity remains unchanged. Laboratory Data: White count 19.6, hemoglobin 12, platelets 213. Sodium 144, potassium 5.2, chloride 107, bicarb 29, BUN 78, creatinine 2.22, glucose 129. CAT scan of the brain done today shows a large 5 cm approximately area of known stroke on the left side with some surrounding soft tissue edema. No evidence of any midline shift. No evidence of any hemorrhage. Impression: 1. Acute respiratory failure with hypercapnia. 2. Acute kidney failure. 3. Atrial fibrillation with rapid ventricular rate. 4. Anasarca. 5. Stroke. 6. Thrombophlebitis, left leg. Plan: We will go ahead and continue anticoagulation therapy. Continue current antibiotics. Continue to follow up with shipping technician and bobbin cleaning machine operator for respiratory failure and kidney failure problem. Continue to follow with wallpaper hanger helper. The patient is on amiodarone and he was on Lopressor 5 mg every 12 hours. I have increased dose to every 6 hours this morning when I saw him as his heart rate was around 120-130, atrial fibrillation. Continue current anticoagulation therapy and I did consult neurologist and Dr. Lopes did evaluate him and he has called the patient's and discussed details with her as well as with me. Overall, prognosis remains poor. I did try to reach out to the patient's this evening and I was not able to contact her, so I will try it again to contact her to discuss details, but Dr. Lopes did discuss all the details with her. Dr. Garcia was also made aware of the patient's stroke problem. REJI/MODL Voice ID: [id number] Report ID: [id number] [facility] CENTEREfrain
[2020-02-26] MEDS ORDERED: IPRATROPIUM BROM 0.5MG/2.5ML ONE ×2 (00:43→08:18)
[2020-02-26] MEDS: LEVALBUTEROL 1.25 MG/3 ML NEB NEB SCH ×4 (00:48→20:00)
[2020-02-26] MEDS: METHYLPREDNISOLONE 40 MG INJ IV SCH ×3 (02:22→17:21)
[2020-02-26] MEDS: METOPROLOL TARTRATE 5 MG/5 ML INJ IV SCH ×4 (02:22→21:08)
[2020-02-26 05:58] LABS: Hematocrit 41.8 % (39.6-49.0); MPV 8.8 fL (7.6-11.3); RBC Red Blood Cell Count 6.03 M/uL (4.33-5.43)
[2020-02-26] MEDS ORDERED: DIGOXIN 0.25 MG/ML AMP ONE (07:26)
[2020-02-26 07:59] LABS: Anisocytosis 2+; Blood Morphology Comment NOTED (NOT SEEN); Hypochromasia 1+; Platelet Estimate ADEQ; Polychromasia 1+; Urine White Blood Cell Casts OK
[2020-02-26] MEDS ORDERED: DIGOXIN 0.25 MG/ML AMP IV SCH (08:00)
[2020-02-26] MEDS: ARFORMOTEROL TARTRATE 15 MCG/2 ML VIAL.NEB NEB SCH ×2 (08:10→20:00)
[2020-02-26] MEDS ORDERED: LEVALBUTEROL 0.63 MG/3 ML NEB ONE ×2 (08:17→14:26)
--- NOTE | 2020-02-26 08:28 | RAD REPORT ---
EXAM DESCRIPTION: RAD - Chest Single View - 02/26/2020 6:07 am CLINICAL HISTORY: respiratory failure Chest pain. COMPARISON: Chest Single View dated 02/24/2020; Chest Single View dated 02/24/2020; Chest Single View dated 02/23/2020; Chest Single View dated 08/20/2019 FINDINGS: Portable technique limits examination quality. ET tube tip is above the sherrill. Enteric tube descends into the abdomen, with the tip not well visual ized. Right-sided PICC line is unchanged in position. Bilateral pulmonary opacities are again seen, m ildly progressive since the comparative study. The heart is moderately enlarged. IMPRESSION: Mild worsening in lung aeration seen since 02/24/2020 comparative study.
[2020-02-26 08:47] LABS: Potassium 4.4 mmol/L (3.5-5.1); Uric Acid 14.5 mg/dL (3.5-7.2)
[2020-02-26] MEDS: CEFEPIME/SWI 2gm 2 GM/20 ML SYR IV SCH ×3 (09:00→21:08)
[2020-02-26] MEDS: THIAMINE 200 MG/2 ML INJ IVP SCH (09:00)
[2020-02-26] MEDS: FAMOTIDINE 20 MG/2 ML VIAL IV SCH ×2 (09:39→21:10)
[2020-02-26] MEDS: FUROSEMIDE 40 MG/4 ML VIAL IV SCH ×3 (09:39→21:09)
[2020-02-26] MEDS ORDERED: THIAMINE 200 MG/2 ML INJ ONE (09:46)
[2020-02-26] MEDS ORDERED: FUROSEMIDE 40 MG/4 ML VIAL ONE ×3 (09:46→21:14)
[2020-02-26] MEDS ORDERED: METHYLPREDNISOLONE 40 MG INJ ONE ×2 (09:46→17:26)
[2020-02-26] MEDS ORDERED: METOPROLOL TARTRATE 5 MG/5 ML INJ IV ONE ×3 (09:47→21:14)
[2020-02-26] MEDS ORDERED: FAMOTIDINE 20 MG/2 ML VIAL IV ONE ×2 (09:47→21:15)
[2020-02-26] MEDS: Enoxaparin 120 MG/0.8 ML SYR SQ SCH (10:26)
--- NOTE | 2020-02-26 13:10 | PN ---
Date of Progress Note: 02/26/2020 Subjective: Mr. Yu remains intubated. He was found yesterday on CT of his head to have a nonhem orrhagic CVA, most likely secondary to atrial fibrillation. He remained in atrial fibrillation at ra te of 110. He is on IV amiodarone. He is getting Lovenox. He remained in respiratory failure. Ech ocardiogram showed a normal ejection fraction, elevated right atrial pressure consistent with right-s ided congestive heart failure. Has had history of DVT as well. His last white count was 15,000. Last creatinine was 2.1. His last blood pressure was 128/90. Plan: I will continue present regimen. Continue anticoagulation. Continue respiratory treatment as being done by Dr. Singh in Pulmonology. We will continue IV amiodarone. No change in therapy, other don. BENJIE/HOLLY Voice ID: [id number] Report ID: [id number]
[2020-02-26 13:11] LABS: Ferritin 23.3 ng/mL (26-388)
[2020-02-26] MEDS: MIDAZOLAM HCL 2 MG/2 ML INJ IV PRN (14:51)
[2020-02-26] MEDS ORDERED: MIDAZOLAM HCL 2 MG/2 ML INJ ONE (15:01)
[2020-02-26 15:37] LABS: Arterial Blood Carboxyhemoglob 1.9 % (0-1.5); Blood Gas Oxyhemoglobin 80.9 % (94-97); Blood O2 Saturation 83.1 % (92-98.5)
[2020-02-26] MEDS: allopurinoL 100 MG TAB PO SCH (17:17)
[2020-02-26] MEDS: LORazepam 2 MG/ML VIAL IV PRN ×2 (17:21→22:53)
[2020-02-26] MEDS ORDERED: LORazepam 2 MG/ML VIAL ONE ×2 (17:30→23:02)
--- NOTE | 2020-02-26 19:28 | PN ---
Date of Progress Note: 02/26/2020 Subjective: The patient was admitted with acute kidney injury, DVT, respiratory failure secondary to over volume. The patient was started on anticoagulation. The patient was started on Lasix drip, th en switched to boluses. The patient is still on vent plan for weaning today. Physical Examination: Vital Signs: Blood pressure 159/97, pulse of 100, afebrile. The patient had good urine output of 21 00, negative of 1100. Chest: Crackles bilateral. Heart: S1, S2 regular. Abdomen: Soft, nontender. Extremities: Erythema with venous stasis on the right, significant venous stasis changes on the left . More edema on the right. Laboratory Data: WBC 15.1, H and H 12.2/41.8, platelets 177. Sodium 144, potassium 4.4, bicarb 31, BUN 84, creatinine 2, uric acid 14.5, calcium 8.5. Iron saturation 4.8, ferritin 23. TSH of 8.6. P C ratio still pending, +2 protein. Serology is still pending. Renal ultrasound was done showing 12. 8/14.4, no hydronephrosis. Current Medications: The patient is on include; 1.Heparin drip. 2.Lasix 40 mg b.i.d. 3.Breathing treatment. 4.Amiodarone. 5.Metoprolol. 6.Lorazepam. 7.Pepcid. Assessment And Plan: 1.Acute kidney injury secondary to cardiorenal, slightly on the over volume side. I am going to go ahead and increase Lasix to t.i.d. and we will continue to monitor. 2.Hyper uric acid. We will start the patient on allopurinol, mostly secondary to cardiorenal, poor perfusion, acute tubular necrosis. 3.Congestive heart failure, respiratory failure. Continue diuresis. 4.Deep vein thrombosis. Continue current treatment. 5.Atrial fibrillation. We will follow up with Cardiology. 6.Respiratory failure. Continue with Pulmonary. MA/MODL Voice ID: [id number] Report ID: [id number]
[2020-02-27] MEDS ORDERED: METHYLPREDNISOLONE 40 MG INJ ONE ×2 (00:32→08:20)
[2020-02-27] MEDS ORDERED: METOPROLOL TARTRATE 5 MG/5 ML INJ IV ONE ×4 (00:33→20:22)
[2020-02-27] MEDS: METOPROLOL TARTRATE 5 MG/5 ML INJ IV SCH ×4 (01:40→20:19)
[2020-02-27] MEDS: METHYLPREDNISOLONE 40 MG INJ IV SCH ×2 (01:40→08:24)
[2020-02-27] MEDS: LORazepam 2 MG/ML VIAL IV PRN ×3 (01:46→19:59)
--- NOTE | 2020-02-27 01:55 | PN ---
Date of Progress Note: 02/26/2020 Subjective: The patient was seen this morning for followup. No new complaints or problems reported by nursing staff. He remains on ventilator, but this morning, there was improvement noted in his overall condition. Wakes up to verbal commands. He was noted to open his eyes when I called his name. He is moving his both lower extremities spontaneously on his own, but not upon verbal commands and upper extremity he is able to hold it in the air against gravity. Objective: Vital Signs: Reviewed. HEENT: Unremarkable. Lungs: Clear to auscultation. Cardiac: Heart sounds normal. Abdomen: Soft. Bowel sounds normal. No guarding, rigidity, tenderness, or distention. Extremities: Trace leg edema. Redness of the right lower extremity somewhat better today compared to yesterday. CAN FILLER: As mentioned above. Laboratory Data: White count 15.1, hemoglobin 12.2, platelets 177. Sodium 144, potassium 4.4, chloride 107, bicarb 31, BUN 84, creatinine 2, glucose 141. Chest x-ray shows mild worsening of the lung aeration since previous chest x- ray. Impression: 1. Acute respiratory failure with hypercapnia. 2. Acute kidney injury. 3. Obstructive sleep apnea. 4. Atrial fibrillation with rapid ventricular rate. 5. Cellulitis and thrombophlebitis, left leg. Plan: We will continue current anticoagulation therapy. Continue current antibiotics. Continue to follow up with soil sampler and neurologist as well as coal conveyor operator. The patient's echocardiogram showed normal ejection fraction as per my discussion with the shape carver. Continue to follow with shape carver for atrial fibrillation problem. I did call the patient's and details were discussed with her earlier today, and later this evening, nurse called me and informed me that the patient's has requested DNR order to be in place. We will see him tomorrow for followup. REJI/MODL Voice ID: [id number] Report ID: [id number] MTDD
[2020-02-27] MEDS ORDERED: LORazepam 2 MG/ML VIAL ONE ×3 (01:56→20:07)
[2020-02-27] MEDS: LEVALBUTEROL 1.25 MG/3 ML NEB NEB SCH ×4 (02:00→20:00)
[2020-02-27] MEDS: MIDAZOLAM HCL 2 MG/2 ML INJ IV PRN (03:17)
[2020-02-27] MEDS ORDERED: MIDAZOLAM HCL 2 MG/2 ML INJ ONE (03:26)
[2020-02-27] MEDS ORDERED: IBUPROFEN 400 MG TAB ONE (04:08)
[2020-02-27 04:43] LABS: Hematocrit 41.9 % (39.6-49.0); MPV 8.8 fL (7.6-11.3); RBC Red Blood Cell Count 6.05 M/uL (4.33-5.43)
[2020-02-27] MEDS ORDERED: LEVALBUTEROL 0.63 MG/3 ML NEB ONE ×3 (08:05→19:47)
[2020-02-27] MEDS: ARFORMOTEROL TARTRATE 15 MCG/2 ML VIAL.NEB NEB SCH ×2 (08:05→20:00)
[2020-02-27] MEDS ORDERED: FUROSEMIDE 40 MG/4 ML VIAL ONE ×2 (08:19→13:24)
[2020-02-27] MEDS ORDERED: FAMOTIDINE 20 MG/2 ML VIAL IV ONE ×2 (08:19→20:23)
[2020-02-27] MEDS: FAMOTIDINE 20 MG/2 ML VIAL IV SCH ×2 (08:23→20:17)
[2020-02-27] MEDS ORDERED: THIAMINE 200 MG/2 ML INJ ONE (08:23)
[2020-02-27] MEDS: FUROSEMIDE 40 MG/4 ML VIAL IV SCH ×3 (08:24→20:18)
[2020-02-27] MEDS: CEFEPIME/SWI 2gm 2 GM/20 ML SYR IV SCH ×2 (08:25→20:19)
[2020-02-27] MEDS: allopurinoL 100 MG TAB PO SCH (08:27)
[2020-02-27] MEDS: THIAMINE 200 MG/2 ML INJ IVP SCH (08:47)
[2020-02-27] MEDS: Enoxaparin 120 MG/0.8 ML SYR SQ SCH (08:59)
--- NOTE | 2020-02-27 09:06 | RAD REPORT ---
EXAM DESCRIPTION: RAD - Chest Single View - 02/27/2020 6:33 am CLINICAL HISTORY: respiratory failure Chest pain. COMPARISON: Chest Single View dated 02/26/2020; Chest Single View dated 02/24/2020; Chest Single View dated 02/24/2020; Chest Single View dated 02/23/2020 FINDINGS: Portable technique limits examination quality. Tip of the ET tube is above the sherrill. Enteric tube descends into the stomach. Right-sided venous ca theter is unchanged in position. Mild bilateral pulmonary opacities are again noted, appearing unchan ged. The heart is moderately enlarged in size. IMPRESSION: Stable chest since 02/26/2020 comparative study.
[2020-02-27 10:44] LABS: UR PROTEIN 11 mg/dL (<11.9)
[2020-02-27 10:48] LABS: UR CREAT < 13.0 mg/dL (20-370)
--- NOTE | 2020-02-27 11:53 | P.PN ---
Subjective Date of Service: 02/27/20 Chief Complaint: Respiratory failure and a stroke pt stable agitated .Obeying commands. restless. Moving extremities. Not breathing over the vent Review of Systems is unable to be obtained Physical Examination - Vital Signs Temperature: 97 F Blood Pressure: 161/94 Pulse: 89 Respirations: 11 Pulse Ox (%): 96 - Physical Exam General: Other (intermittent responsive) Neck: Supple Respiratory: Clear to auscultation bilaterally, Diminished Cardiovascular: Edema Neurological: Other (oving all his extremites. understanding commands) - Studies Microbiology Data (last 24 hrs): 02/23/20 19:17 Clean Catch Urine [place] Count - Final <10,000 CFU/ML. 02/23/20 19:17 Clean Catch Urine - Final MIXED ARIEL. Assessment & Plan - Problems (Diagnosis) (1) Respiratory failure Current Visit: Yes Status: Acute Plan: Cw to wean. wants to withdraw hansa. Prognosis is poor. Sever COPD andSEver EMILIA, WBC has declined Mild hypernatrmia. Sputum cultures ordered renal failure stable. D/C streoids may be contributing to agitation .Use Haldol prn Qualifiers: Chronicity: acute on chronic (2) Stroke Current Visit: Yes Status: Acute Plan: PT has a stroke
[2020-02-27] MEDS: NITROGLYCERIN 0.2 MG/HR (5 MG) PATCH TD SCH (11:55)
--- NOTE | 2020-02-27 11:57 | P.PN ---
Subjective Date of Service: 02/26/20 Chief Complaint: Respiratory failure and a stroke Pt stable not verey responsive. Not breathing over the vent. Significant episodes of apneic spells. While onCPAP mode. Agitatated. Obeying commands Review of Systems is unable to be obtained Physical Examination - Vital Signs Temperature: 97 F Blood Pressure: 161/94 Pulse: 89 Respirations: 11 Pulse Ox (%): 96 - Physical Exam General: Unresponsive (will obey commands at times. Eyes closed) Respiratory: Clear to auscultation bilaterally, Diminished Cardiovascular: Edema Gastrointestinal: Normal bowel sounds - Studies Microbiology Data (last 24 hrs): 02/23/20 19:17 Clean Catch Urine [place] Count - Final <10,000 CFU/ML. 02/23/20 19:17 Clean Catch Urine - Final MIXED ARIEL. Assessment & Plan - Problems (Diagnosis) (1) Respiratory failure Current Visit: Yes Status: Acute Plan: CW weaning. Prognosis poor. wants to withdraw care. Resume SIMV for now. Will try weaning am. Renal failure WBC is declinng. Cultures neg. I suspect pt apnea is due to low CO2 levels. HE is chronically vey hypercapneic Reduce rate on vent Qualifiers: Chronicity: acute on chronic (2) Stroke Current Visit: Yes Status: Acute Plan: PT has a stroke
--- NOTE | 2020-02-27 12:01 | PN ---
Date of Progress Note: 02/27/2020 Subjective: The patient was admitted with respiratory failure secondary to over volume, had DVT and congestive heart failure. The patient intubated. The patient failed weaning yesterday. Physical Examination: Vital Signs: Blood pressure 161/94, pulse of 89. The patient had good urine output of 4900, negativ e of 3300. Chest: Crackles bilateral. Heart: S1 and S2. Systolic murmur. Regular. Abdomen: Soft, nontender. Extremities: Erythema with edema on the right side. Chronic venous stasis on the left side. Laboratory Data: WBC 13.5, H and H 12.2/41.9, platelet 132. Sodium 146, potassium 4, bicarb 35, BUN 84, creatinine of 2, calcium 8.8. Iron saturation 4.8, ferritin of 23. TSH of 8.6. Current Medications: The patient on include Lovenox, albuterol, metoprolol, amiodarone, sedation, Pe pcid, allopurinol, Lasix. Assessment And Plan: 1.Acute kidney injury secondary to cardiorenal, still over volume. I am going to go ahead and incre ase Lasix to 80 t.i.d. 2.Hypertension. We will utilize blood pressure for more diuresis. Increase Lasix. Add nitroglycer in. 3.Congestive heart failure with exacerbation. We will try to establish better volume control with i ncreasing diuresis. 4.Iron-deficiency anemia. H and H on the goal. 5.Respiratory failure secondary to cardiorenal. Continue diuresis. Follow up with Pulmonary. 6.Cerebrovascular accident, as by neuro. 7.Deep vein thrombosis. Continue anticoagulation. 8.Hypothyroidism. Start with levothyroxine. 9.Gout. Continue allopurinol. SAMARA/HOLLY Voice ID: [id number] Report ID: [id number]
--- NOTE | 2020-02-27 12:32 | PN ---
Date of Progress Note: 02/27/2020 Subjective: Mr. Yu remains intubated. He remains in atrial fibrillation. Pulse of 96, temperat ure of 97, and blood pressure is 153/85. No improvement overall as far as mental status. His main i ssues are acute renal failure, acute respiratory failure, status post intubation. Echocardiogram samuel wed right-sided congestive heart failure, normal left ventricular ejection fraction. Remains in atri al fibrillation, on IV amiodarone. He is also on Lovenox, inhalers, antibiotics, and Lasix. Also vasquez s a new-onset CVA, presumably secondary to the atrial fibrillation. Apparently, the family is discus sing code status with Dr. Singh. I will hold off on future followup for now. I agree with his umer t regimen. BENJIE/HOLLY Voice ID: [id number] Report ID: [id number]
[2020-02-27] MEDS ORDERED: FUROSEMIDE 100 MG/10 ML VIAL IV ONE ×2 (13:20→20:22)
[2020-02-27] MEDS ORDERED: HALOPERIDOL LACT 5 MG/ML INJ ONE (18:37)
[2020-02-27] MEDS ORDERED: CEFEPIME 2 GM VIAL ONE (20:22)
[2020-02-27] MEDS ORDERED: NA CHLORIDE 0.9% 100 ML IV ONE (20:25)
[2020-02-27] MEDS ORDERED: AMIODARONE IN DEXTROSE,ISO-OSM 0 MG/0 ML BAG IV ONE (21:10)
--- NOTE | 2020-02-27 23:38 | PN ---
Date of Progress Note: 02/27/2020 Subjective: The patient was seen this morning for followup. He did receive some Ativan earlier this morning around 5:30 in the morning for agitation. When I saw him around 7 o'clock, he was sleeping, did not respond to any verbal commands. Not in any distress. Objective: Vital Signs: Reviewed. He still remains in atrial flutter, but rate is controlled. Int destiny and output records reviewed. HEENT: Unremarkable. Lungs: Clear to auscultation. Heart: Sounds normal. Abdomen: Soft. Bowel sounds normal. No guarding, rigidity, tenderness, or distention. Extremities: Trace leg edema, with redness of the right lower extremity present, unchanged from yest erday. Laboratory Data: White count 13.5 today, hemoglobin 12.2 with platelets 132. Sodium 146, potassium 4, chloride 106, bicarb 35, BUN 85, creatinine 2.03, glucose 132. Impression: 1.Acute respiratory failure with hypercapnia. 2.Acute kidney failure. 3.Acute exacerbation of chronic obstructive pulmonary disease. 4.Obstructive sleep apnea. 5.Stroke. 6.Atrial fibrillation/flutter. Plan: We will continue current antibiotics. The patient's WBC count has improved. Renal function h as remained stable, no significant change. We will continue to follow with software tools developer. We will co ntinue current Lovenox. Details were discussed with the patient's this morning and she informed me that she does not believe that the patient would like to live like this and she has requested for us to go ahead and withdraw life support and her plan was to visit the patient sometime later today and then sign appropriate paperwork for withdrawal of life support. I did inform her that at this po int we do not know if the patient will be able to survive after extubation or not and if he does surv magda, we do not know what kind of condition he will be in. On other hand, if he does not survive, we do not know how long he will be able to survive without life support, so all those details were discu ssed with her and all those different possibilities and uncertainties also were explained to her and she seems to understand it very well. I did communicate with the nurse taking care of the patient th at whenever the patient's is ready for withdrawal of life support, then she will need to sign ap propriate forms and then nurse to contact me for such order. Overall prognosis is poor. REJI/MODL Voice ID: [id number] Report ID: [id number]
[2020-02-28] MEDS ORDERED: METOPROLOL TARTRATE 5 MG/5 ML INJ IV ONE ×2 (00:35→08:49)
[2020-02-28] MEDS ORDERED: AMIODARONE IN DEXTROSE,ISO-OSM 0 MG/0 ML BAG IV ONE (00:35)
[2020-02-28] MEDS ORDERED: AMIODARONE HCL 150 MG/3 ML INJ IV ONE ×2 (00:52→00:58)
[2020-02-28] MEDS: METOPROLOL TARTRATE 5 MG/5 ML INJ IV SCH ×2 (01:41→08:40)
[2020-02-28] MEDS ORDERED: LEVALBUTEROL 1.25 MG/3 ML NEB ONE ×2 (01:59→07:50)
[2020-02-28] MEDS: LEVALBUTEROL 1.25 MG/3 ML NEB NEB SCH ×2 (02:00→07:41)
[2020-02-28] MEDS: LORazepam 2 MG/ML VIAL IV PRN ×3 (02:08→11:14)
[2020-02-28] MEDS ORDERED: LORazepam 2 MG/ML VIAL ONE ×4 (02:13→13:11)
[2020-02-28 04:10] VITALS: TEMP 98.1
[2020-02-28] MEDS ORDERED: LEVOTHYROXINE SOD 0.025 MG TAB ONE (04:52)
[2020-02-28 05:33] LABS: Albumin 2.7 g/dL (3.4-5.0); Phosphorus 7.4 mg/dL (2.5-4.9)
[2020-02-28 05:48] VITALS: BMI 29.1
[2020-02-28] MEDS ORDERED: LEVOTHYROXINE SOD 0.025 MG TAB PO SCH (06:30)
[2020-02-28] MEDS: ARFORMOTEROL TARTRATE 15 MCG/2 ML VIAL.NEB NEB SCH ×2 (07:41)
[2020-02-28] MEDS: FUROSEMIDE 40 MG/4 ML VIAL IV SCH (08:40)
[2020-02-28] MEDS: THIAMINE 200 MG/2 ML INJ IVP SCH (08:41)
[2020-02-28] MEDS: FAMOTIDINE 20 MG/2 ML VIAL IV SCH (08:42)
[2020-02-28] MEDS ORDERED: THIAMINE 200 MG/2 ML INJ ONE (08:48)
[2020-02-28] MEDS ORDERED: FUROSEMIDE 40 MG/4 ML VIAL ONE (08:49)
[2020-02-28] MEDS ORDERED: FAMOTIDINE 20 MG/2 ML VIAL IV ONE (08:52)
[2020-02-28] MEDS: allopurinoL 100 MG TAB PO SCH (09:00)
[2020-02-28] MEDS: Enoxaparin 120 MG/0.8 ML SYR SQ SCH (09:09)
[2020-02-28] MEDS: NITROGLYCERIN 0.2 MG/HR (5 MG) PATCH TD SCH (09:09)
[2020-02-28] MEDS: CEFEPIME/SWI 2gm 2 GM/20 ML SYR IV SCH (09:09)
[2020-02-28 09:10] VITALS: BP 141/100
[2020-02-28 09:43] VITALS: O2SAT 94
--- NOTE | 2020-02-28 10:52 | P.PN ---
Subjective Date of Service: 02/28/20 Chief Complaint: Respiratory failure and a stroke Pt admitted with SOB , required intubation had FRANCHESCA , imaging with large pericardial effusion ,pt developed isthmic CVA Today Pt extubated tachypneic with O2 desaturation family to discuss goal of care Physical exam general: tachypneic, lethargic Neck; Supple, No elevated JVD hear: RRR, normal S1,2 no murmur or rub Chest: CTAB, no rlaes or wheezes Abdomen: slightly distended , Nt , scrotal edema Extremities No edema or ulcer FRANCHESCA possibly due to ischemic ATN and cardiorenal syndrome monitor vanco level no need for urgent renal replacemt therapy at this time CHF with large effusion cont lasix acute resp faiulre extubated now as pr family wishes NSTEMI trend trop Elevated LFT due to shocked liver Overall poor prognosis family to decide about goal of care Physical Examination - Vital Signs Temperature: 98.1 F Blood Pressure: 141/100 Pulse: 115 Respirations: 21 Pulse Ox (%): 96
--- NOTE | 2020-02-28 11:33 | PN ---
Date of Progress Note: 02/28/2020 Subjective: The patient was seen this morning for followup. He was extubated yesterday per request of family for withdrawal of life support and he is on oxygen. He remains unresponsive to any verbal stimuli, but he does move his extremity from time to time spontaneously on his own. Remains on oxygen and has periods of agitation from time to time that results in hypoxia and tachycardia requiring some IV Ativan type of medication and responds well to medication. Intake and output records reviewed. Objective: HEENT: Unremarkable. Lungs: Bilateral good equal air entry. Clear to auscultation. Heart: Sounds normal. Abdomen: Soft. Bowel sounds normal. No guarding, rigidity, tenderness, or distention. Extremities: Trace leg edema, unchanged. Redness of right lower extremity is better than before. Laboratory Data: Sodium 148, potassium 4, chloride 103, bicarb 40, BUN 89, creatinine 2.35, glucose 119. Impression: 1. Acute respiratory failure with hypercapnia. 2. Acute kidney failure. 3. Atrial fibrillation. 4. Cellulitis, leg. Plan: We will go ahead and continue current medication. Continue current supportive care, oxygen, p.r.n. use of Ativan and he remains on antibiotics. I will communicate with the patient's today for comfort care measures. We will decide if some of the current treatment will be continued or discontinued depending on 's decision. Overall, prognosis is very poor. REJI/MODL Voice ID: [id number] Report ID: [id number] FRANDY
--- NOTE | 2020-02-28 15:28 | EKG ---
Test Date: 2020-02-26 Test Time: 18:59:48 [employer] Solder Stripper: IGNACIO MEASUREMENT RESULTS: Intervals: Rate: 97 [place]: 182 QRSD: 94 QT: 340 QTc: 431 [place]: P: [place]: 182 QRS: -4 T: 244 INTERPRETIVE STATEMENTS: Normal sinus rhythm ST & T wave abnormality, consider inferior ischemia ST & T wave abnormality, consider anterolateral ischemia Abnormal ECG Compared to ECG 02/24/2020 13:52:55 No significant changes Electronically Signed On 02-28-20 15:24:34 CDT by Juan Luis Levin
--- NOTE | 2020-03-02 02:12 | DS ---
Date of Discharge: 02/28/2020 Disposition: The patient today. Physical Examination: See copy of today's progress note dictation for details. Hospital Course: A 59-year-old male patient who came into emergency room with altered mental status. Please see dictated H and P for more information. The patient was admitted to the hospital with acute respiratory failure with hypercapnia, acute kidney failure, abnormal liver function tests, thrombophlebitis of left greater saphenous vein. He also developed atrial fibrillation with rapid ventricular rate. His initial CAT scan of the head showed some questionable abnormality in the left temporal lobe, but repeat CAT scan showed large area of nonhemorrhagic stroke in the left temporal region with some soft tissue edema, but no evidence of any midline shift. The patient required intubation for his respiratory failure and remained on ventilator throughout his hospital stay. His initial chest x-ray had shown evidence of mild CHF versus volume overload pattern. CAT scan of the chest, abdomen, and pelvis has shown significant anasarca present. His echocardiogram showed normal ejection fraction of 66% and also showed dilated inferior vena cava suggesting right atrial pressure more than 20 mmHg. Venous Doppler of lower extremity shows no evidence of deep vein thrombosis involving either lower extremity, but extensive acute thrombus in the left greater saphenous vein present. The patient initially received IV heparin, subsequently it was changed to Lovenox at a therapeutic dose for atrial fibrillation problem. His initial white count was 26.4, hemoglobin 14.1, platelets 303. Last white count 13.5, hemoglobin 12.2, platelets 132. His initial blood gas when he came in to ER; pH 7.17, pCO2 78, PO2 148 on 100% FiO2, and repeat blood gas after BiPAP therapy was pH 6.99, pCO2 121 with PO2 83.7 on 60% FiO2 and that is the time he was intubated. His last chemistry on 02/28/2020; BUN 89, creatinine 2.35, sodium 148, potassium 4, chloride 103, bicarb 40. When he first came in, his sodium was 137, potassium 6, chloride 102 bicarb 25, BUN 67, creatinine 2.21. His SGOT when he came in was 509, SGPT 526. 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 Renal function did not improve and lately, he deteriorated. His respiratory status did not improve. We were not able to wean him off the ventilator and neurologist was also consulted with stroke. Considering extensive and serious medical problems, the patient's requested withdrawal of life support and after appropriate paperwork was signed, the patient was extubated and subsequently, he and this was expected. Final Diagnoses: 1. Acute respiratory failure with hypercapnia. 2. Acute kidney failure. 3. Abnormal liver function test. 4. Abnormal cardiac enzymes. 5. Atrial fibrillation with rapid ventricular rate. 6. Stroke, likely cardioembolic. 7. Leg edema. 8. Cellulitis, right leg. 9. Thrombophlebitis, left greater saphenous vein. REJI/MODL Voice ID: [id number] Report ID: [id number] FRANDY
[2020-03-05 13:34] LABS: Vitamin D 1,25-Dihydroxy Total 12 pg/mL (18-72); Vitamin D,1,25-OH2, D2 <8 pg/mL
== END 2020-02-28 14:10 | disposition expired | DRG 208 ==
LOC: ER 18:38 → SUPCPDRO 18:38 → ERHOLD 20:31 → 3RD-ICU 02-24 11:06 → ERHOLD 02-24 19:00
PROVIDERS: ADMIT Internal Medicine; ATTEND Internal Medicine
PROC: 05H533Z Insertion of Infusion Device into Right Subclavian Vein, Percutaneous Approach (ICD-10-PCS; 2020-02-23)
PROC: 8E0ZXY6 Isolation (ICD-10-PCS; 2020-02-23)
PROC: 5A1945Z Respiratory Ventilation, 24-96 Consecutive Hours (ICD-10-PCS; principal; 2020-02-24)
PROC: 0BH17EZ Insertion of Endotracheal Airway into Trachea, Via Natural or Artificial Opening (ICD-10-PCS; 2020-02-24)
DX: J96.22 Acute and chronic respiratory failure with hypercapnia (principal); I63.9 Cerebral infarction, unspecified; I21.4 Non-ST elevation (NSTEMI) myocardial infarction; I50.33 Acute on chronic diastolic (congestive) heart failure; L03.115 Cellulitis of right lower limb; N17.9 Acute kidney failure, unspecified; I47.1 Supraventricular tachycardia; I48.92 Unspecified atrial flutter; J44.1 Chronic obstructive pulmonary disease with (acute) exacerbation; E87.0 Hyperosmolality and hypernatremia; J96.21 Acute and chronic respiratory failure with hypoxia; I80.3 Phlebitis and thrombophlebitis of lower extremities, unspecified; I48.91 Unspecified atrial fibrillation; I80.02 Phlebitis and thrombophlebitis of superficial vessels of left lower extremity; R94.5 Abnormal results of liver function studies; R60.0 Localized edema; E87.5 Hyperkalemia; E88.09 Other disorders of plasma-protein metabolism, not elsewhere classified; R79.89 Other specified abnormal findings of blood chemistry; Z79.890 Hormone replacement therapy; Z79.899 Other long term (current) drug therapy; R05 Cough; Z20.828 Contact with and (suspected) exposure to other viral communicable diseases; R60.1 Generalized edema; F17.210 Nicotine dependence, cigarettes, uncomplicated; I11.0 Hypertensive heart disease with heart failure; I27.20 Pulmonary hypertension, unspecified; Z86.718 Personal history of other venous thrombosis and embolism; G47.33 Obstructive sleep apnea (adult) (pediatric); D50.9 Iron deficiency anemia, unspecified; E03.9 Hypothyroidism, unspecified; M10.9 Gout, unspecified
CPT/HCPCS: 31500; 36415; 51702; 70450; 71045; 71250; 74176; 76770; 80048; 80069; 80076; 80162; 80202; 81003; 81015; 82140; 82550; 82565; 82570; 82607; 82652; 82728; 82805; 83540; 83605; 83690; 83735; 83880; 83970; 84100; 84145; 84156; 84439; 84443; 84466; 84484; 84550; 85025; 85027; 85610; 85730; 86021; 86038; 86160; 86850; 86870; 86900; 86901; 87040; 87086; 87088; 90471; 90670; 93005; 93306; 93970; 94002; 94003; 94640; 94660; 94760; 99291; 99292; C9113; J0153; J0282; J0610; J0692; J082; J1160; J1630; J1644; J1650; J1940; J2250; J2920; J2930; J3010; J3370; J3411; J7030; J7040; J7050; J7060; J7605; U0002